=== PATIENT | female | born 1965 | race Caucasian/White ===

== ENCOUNTER 2018-05-04 15:15 | Inpatient (IN) ==
[2018-05-04] MEDS ORDERED: MoRPHine SULFATE 10 MG/ML CARP/VIAL IV STA (15:51)
[2018-05-04] MEDS ORDERED: ONDANSETRON INJ 2 MG/ML 2 ML VIAL IV STA (15:51)
[2018-05-04] MEDS ORDERED: SODIUM CHLORIDE 0.9% 1000ML 1,000 ML IV SCH (16:00)
[2018-05-04 16:09] LABS: Basophils # (auto) 0.03 K/uL (0-0.2); Basophils % (auto) 0.2 %; Eosinophils # (auto) 0.13 K/uL (0-0.5); Eosinophils % (auto) 0.9 %; Hematocrit (blood only) 39.2 % (37-47); Hemoglobin 13.9 g/dL (12.0-16.0); Immature Granulocytes # (auto) 0.03 K/uL (0.00-0.02); Immature Granulocytes % (auto) 0.2 %; Lymphocytes # (auto) 2.58 K/uL (1.2-3.4); Lymphocytes % (auto) 18.8 %; Mean Corpuscular Hgb Conc 35.5 g/dL (32-36); Mean Corpuscular Volume 89.5 fL (80-100); Mean Platelet Volume 9.6 fL (7.4-10.4); Monocytes # (auto) 0.81 K/uL (0.11-0.59); Monocytes % (auto) 5.9 %; Neutrophils # (auto) 10.12 K/uL (1.4-6.5); Platelet Count 173 K/uL (130-400); RDW Coefficient of Variation 12.7 % (11.5-14.5); RDW Standard Deviation 41.1 fL (36.4-46.3); Red Blood Count 4.38 M/uL (4.2-5.4)
[2018-05-04 16:32] LABS: Blood Urea Nitrogen 13 mg/dl (7-18); Carbon Dioxide 30 mmol/L (21-32); Chloride 106 mmol/L (98-107); Est GFR (African American) 70.5; Potassium 3.4 mmol/L (3.5-5.1); Sodium 139 mmol/L (136-145)
[2018-05-04 16:33] LABS: Alanine Aminotransferase 26 U/L (12-78); Albumin Level 3.4 gm/dl (3.4-5.0); Aspartate Aminotransferase 17 U/L (15-37); BUN Creatinine Ratio 12.3 (10-20); Est GFR (Non-African American) 60.9; Glucose 103 mg/dl (70-99)
[2018-05-04 16:35] LABS: Albumin Globulin Ratio 0.8 (0.9-2); Alkaline Phosphatase 82 U/L (45-117); Bilirubin,Total 0.3 mg/dl (0.2-1); Globulin 4.1 gm/dl (2.5-4.0); Total Protein 7.5 gm/dl (6.4-8.2)
[2018-05-04] MEDS ORDERED: IOVERSOL 100ml IV PRN (16:57)
--- NOTE | 2018-05-04 17:17 | CT Scan Report ---
CT abd pelvis IV con only CLINICAL HISTORY: Right lower quadrant pain COMPARISON STUDY: None. TECHNIQUE: The patient was scanned in a dynamic helical fashion during intravenous administration of 90 cc of Optiray 320. A dose lowering technique was utilized adhering to the principles of ALARA. CT DOSE: 1212.75 mGy.cm FINDINGS: Lower chest: There are by basilar dependent atelectatic changes. Liver: There is a to small to characterize 8 mm hypodensity within the right hepatic lobe. The portal veins and hepatic veins appear patent. Gallbladder: Surgically absent Spleen: Top limits of normal in size. Pancreas: Unremarkable. Adrenal glands: Unremarkable. Kidneys: There is a 35mm left renal hypodense lesion which exceeds water attenuation with a Hounsfiel d measurement of 24. A dedicated renal CT scan or MRI is recommended to differentiate a hyperdense cy st from solid renal mass. There is an additional 9 mm left renal hypodense lesion. Bowel: There are no transition zones indicate bowel obstruction. There is a dilated thick-walled appe ndix with periappendiceal stranding. The findings are indicative of acute appendicitis. There are sca ttered colonic diverticula. There is no evidence of acute diverticulitis. Peritoneum: There is no intraperitoneal free air or abdominal ascites. Vasculature: The abdominal aorta is normal in course and caliber. Adenopathy: Prominent right ileocolic lymph nodes, are likely reactive Pelvic viscera: The uterus appears surgically absent Skeletal structures: No destructive osseous lesions are seen. IMPRESSION: 1. Dilated thick-walled appendix with periappendiceal stranding. The findings are indicative of acute appendicitis 2. Indeterminate 35mm left renal hypodensity. A dedicated renal CT scan or MRI is recommended to diff erentiate a hyperdense cyst from a solid renal neoplasm Electronically signed by: Apollo Winchester M.D. 05/04/2018 5:16 PM
[2018-05-04] MEDS ORDERED: MoRPHine SULFATE 4 MG/ML 1 ML CARP\\VIAL IV STA (17:28)
[2018-05-04] MEDS ORDERED: cefOXitin 2,000 MG/60 ML BAG IV STA (17:28)
--- NOTE | 2018-05-04 17:51 | History & Physical Report ---
Date of Service May 04, 2018 Assessment & Plan (1) Acute appendicitis: Patient with acute appendicitis. I have discussed with her and her laparoscopic appendectomy with possible open appendectomy. They do understand potential complications of bleeding infection bowel and bladder i njury and do wish to proceed. I will asked the [facility] hospitalist to help with her medical management. History of Present Illness Chief Complaint: abdominal pain Primary Care Provider: Kg Martines Allergies Allergy/AdvReac Type Severity Reaction Status Date / Time amoxicillin AdvReac Intermediate nausea Verified 05/04/18 16:36 Home Medications Home Medications Medication Instructions Recorded Confirmed Type clarithromycin 500 mg PO BID 05/04/18 05/04/18 History cyanocobalamin (vitamin B-12) 1,000 mcg PO DAILY 05/04/18 05/04/18 History [Vitamin B-12] duloxetine [Cymbalta] 60 mg PO DAILY 05/04/18 05/04/18 History furosemide [Lasix] 40 mg PO DAILY 05/04/18 05/04/18 History ibuprofen [Advil] 200 - 600 mg PO DIRECTED PRN 05/04/18 05/04/18 History levocetirizine 5 mg PO DAILY 05/04/18 05/04/18 History levothyroxine 100 mcg PO DAILYBB 05/04/18 05/04/18 History omega 7-ovd-lsz-fish oil [Fish Oil] 1 cap PO DAILY 05/04/18 05/04/18 History omeprazole 40 mg PO DAILY 05/04/18 05/04/18 History potassium chloride 20 meq PO DAILY 05/04/18 05/04/18 History prednisone 0 mg PO DAILY 05/04/18 05/04/18 History vitamin E 400 unit PO DAILY 05/04/18 05/04/18 History Past Med/Surg History Social History Feels Safe at Home: Yes Smoking Status: Current every day smoker Immunizations: Patient is a 52-year-old female with acute abdominal pain mostly in the right lower quadrant presented to the emergency room with findings on CAT scan of acute appendicitis there does not appear to be any significant abscess. Review of Systems All systems reviewed & are unremarkable except as noted in HPI & below Physical Exam Vital Signs (Past 24 Hours): Last Vital Signs Temp 36.8 C 05/04/18 15:19 Pulse 91 H 05/04/18 16:47 Resp 17 05/04/18 16:47 BP 126/75 05/04/18 16:47 Pulse Ox 97 05/04/18 16:47 Patient is in her ER bed she is in mild distress from abdominal pain. She is responsive her vital signs are stable her HEENT exam shows atraumatic findings neck is supple she is in no respiratory distress heart shows regular rate and rhythm abdomen is soft but does have severe tenderness in the right lower quadrant. Her extremities are warm and well perfused Results & Data Medications Administered Ioversol (Optiray 320 100ml) 90 ml IV ONCE PRN PRN Reason: Interaction Checking Stop: 05/08/18 16:56 Last Admin: 05/04/18 16:59 Dose: 90 ml Documented by: [id number]
--- NOTE | 2018-05-04 18:44 | Emergency Department Note ---
History of Present Illness General Chief complaint: Rib Injury/Pain Stated complaint: NAUESEA & PAIN IN RIGHT SIDE Source: patient Mode of arrival: ambulatory Limitations: no limitations History of Present Illness Maximum Pain Intensity: 8 This patient is a 52-year-old female who presents to the emergency department complaining of nausea and pain in her right side. She reports that her symptoms started approximately 5 hours ago while she was at work. She reports that the pain is worse when standing or moving. She rates the discomfort an 8/10. She reports she recently finished a course of clarithromycin due to an upper respiratory infection. She has had some mild diarrhea. She reports a history of fibromyalgia, hysterectomy and cholecystectomy. She still has her appendix. She has not vomited. She denies urinary symptoms or fevers. Home Medications Home Medications Medication Instructions Recorded Confirmed Type clarithromycin 500 mg PO BID 05/04/18 05/04/18 History cyanocobalamin (vitamin B-12) 1,000 mcg PO DAILY 05/04/18 05/04/18 History [Vitamin B-12] duloxetine [Cymbalta] 60 mg PO DAILY 05/04/18 05/04/18 History furosemide [Lasix] 40 mg PO DAILY 05/04/18 05/04/18 History ibuprofen [Advil] 200 - 600 mg PO DIRECTED PRN 05/04/18 05/04/18 History levocetirizine 5 mg PO HS 05/04/18 05/04/18 History levothyroxine 100 mcg PO DAILYBB 05/04/18 05/04/18 History montelukast 10 mg PO PM 05/04/18 05/04/18 History omega 2-tpf-fmp-fish oil [Fish Oil] 1 cap PO DAILY 05/04/18 05/04/18 History omeprazole 40 mg PO DAILY 05/04/18 05/04/18 History potassium chloride 20 meq PO DAILY 05/04/18 05/04/18 History prednisone 0 mg PO DAILY 05/04/18 05/04/18 History vitamin E 400 unit PO DAILY 05/04/18 05/04/18 History Allergies Allergy/AdvReac Type Severity Reaction Status Date / Time amoxicillin AdvReac Intermediate nausea Verified 05/04/18 16:36 Past Med/Surg History Medical History Tobacco use (Chronic) History of hysterectomy (Chronic) Fibromyalgia (Chronic) Anxiety (Chronic) Hypothyroidism (Chronic) GERD (gastroesophageal reflux disease) (Chronic) Leg edema (Chronic) Surgical History History of cholecystectomy (Chronic) Hx of tonsillectomy (Chronic) Family History Other Cancer Coronary heart disease Social History Feels Safe at Home: Yes Smoking Status: Current every day smoker (1ppd x25 years) Hx Alcohol Use: Yes Hx Substance Use: No Review of Systems A total of 10 systems reviewed and were otherwise negative Physical Exam Vital Signs Vital Signs - 24 hr 05/04/18 15:19 05/04/18 16:47 05/04/18 18:38 Temperature 36.8 C Temperature Source Oral Sepsis Recent Fever Within 48 Hours No Sepsis Action Taken by Nursing No Action Required Pulse Rate 116 H Pulse Rate [Right Finger] 91 H 95 H Pulse Rhythm Regular Pulse Strength Normal Respiratory Rate 23 17 18 Respiratory Effort / Characteristics Non-Labored Respiratory Depth Normal Blood Pressure 144/89 H Blood Pressure [Right Arm] 126/75 122/84 Blood Pressure Mean 107 Blood Pressure Mean [Right Arm] 92 96 Pulse Oximetry 97 97 95 Oxygen Delivery Method Room Air Room Air Room Air VITALS: Vitals are noted on the nurse's note and reviewed by myself. Vital signs stable. GENERAL: This is a 52-year-old female, in no acute distress, nondiaphoretic, well-developed well-nourished. SKIN: The skin was without rashes. EARS: External auditory canals clear, tympanic membranes pearly christie without erythema or effusion bilaterally. EYES: Pupils equal round and reactive to light and accommodation. MOUTH: Mucous membranes moist. Tonsils are not enlarged. Pharynx without erythema or exudate. NECK: Supple without nuchal rigidity. No lymphadenopathy. HEART: Regular rate and rhythm without murmurs gallops or rubs. LUNGS: Clear to auscultation bilaterally without wheezes, rales or rhonchi. No retractions or accessory muscle use. ABDOMEN: Positive bowel sounds x 4. Soft, moderate tenderness to palpation in the right lower quadrant. No guarding or rebound tenderness. EXTREMITIES: No pitting edema of the lower extremities. NEURO: Patient was alert and oriented to person place and time. Course Consultations Consultation #1: Dr. Logan - general surgery Administered Medications Ioversol (Optiray 320 100ml) 90 ml IV ONCE PRN PRN Reason: Interaction Checking Stop: 05/08/18 16:56 Last Admin: 05/04/18 16:59 Dose: 90 ml Documented by: [id number] Discontinued Medications Sodium Chloride (Nss 1000ml) 1,000 mls @ 999 mls/hr IV .Q1H1M BARBI Stop: 05/04/18 17:00 Last Infusion: 05/04/18 17:10 Dose: 0 mls/hr Documented by: [id number] Admin: 05/04/18 16:05 Dose: 999 mls/hr Documented by: [id number] Cefoxitin Sodium (Mefoxin) 2,000 mg in 60 mls @ 100 mls/hr IV NOW STA Stop: 05/04/18 18:03 Last Infusion: 05/04/18 18:46 Dose: 0 mls/hr Documented by: [id number] Admin: 05/04/18 18:09 Dose: 100 mls/hr Documented by: [id number] Morphine Sulfate (Morphine Sulfate) 6 mg IV NOW STA Stop: 05/04/18 15:52 Last Admin: 05/04/18 16:05 Dose: 6 mg Documented by: [id number] Morphine Sulfate (Morphine Sulfate) 4 mg IV NOW STA Stop: 05/04/18 17:29 Last Admin: 05/04/18 17:37 Dose: 4 mg Documented by: [id number] Ondansetron HCl (Zofran) 4 mg IV NOW STA Stop: 05/04/18 15:52 Last Admin: 05/04/18 16:05 Dose: 4 mg Documented by: [id number] Medical Decision Making Differential Diagnosis Differential diagnosis includes acute appendicitis, kidney stone, inguinal hernia, bowel obstruction, gastroenteritis, among others. Medical Records Attestation: I reviewed the patient's medical records. Home Medications Current Medication List: was personally reviewed by me Laboratory Data Attestation: I reviewed the patient's lab results. Result diagrams: 05/04/18 16:00 05/04/18 16:00 Lab Results 05/04/18 05/04/18 Range/Units 16:00 16:00 WBC 13.70 H (4.8-10.8) K/uL RBC 4.38 (4.2-5.4) M/uL Hgb 13.9 (12.0-16.0) g/dL Hct 39.2 (37-47) % MCV 89.5 (80-100) fL MCH 31.7 (25-34) pg MCHC 35.5 (32-36) g/dL RDW Std Deviation 41.1 (36.4-46.3) fL RDW Coeff of Kiki 12.7 (11.5-14.5) % Plt Count 173 (130-400) K/uL MPV 9.6 (7.4-10.4) fL Immature Gran % (Auto) 0.2 % Neut % (Auto) 74.0 % Lymph % (Auto) 18.8 % Ceiba % (Auto) 5.9 % Eos % (Auto) 0.9 % Baso % (Auto) 0.2 % Immature Gran # (Auto) 0.03 H (0.00-0.02) K/uL Neut # (Auto) 10.12 H (1.4-6.5) K/uL Lymph # (Auto) 2.58 (1.2-3.4) K/uL Ceiba # (Auto) 0.81 H (0.11-0.59) K/uL Eos # (Auto) 0.13 (0-0.5) K/uL Baso # (Auto) 0.03 (0-0.2) K/uL Sodium 139 (136-145) mmol/L Potassium 3.4 L (3.5-5.1) mmol/L Chloride 106 (98-107) mmol/L Carbon Dioxide 30 (21-32) mmol/L Anion Gap 3.0 (3-11) BUN 13 (7-18) mg/dl Creatinine 1.04 (0.6-1.2) mg/dl Est Cr Clr Drug Dosing Not Reportable Est GFR ( Amer) 70.5 Est GFR (Non-Af Amer) 60.9 BUN/Creatinine Ratio 12.3 (10-20) Glucose 103 H (70-99) mg/dl Calcium 9.0 (8.5-10.1) mg/dl Total Bilirubin 0.3 (0.2-1) mg/dl AST 17 (15-37) U/L ALT 26 (12-78) U/L Alkaline Phosphatase 82 (45-117) U/L Total Protein 7.5 (6.4-8.2) gm/dl Albumin 3.4 (3.4-5.0) gm/dl Globulin 4.1 H (2.5-4.0) gm/dl Albumin/Globulin Ratio 0.8 L (0.9-2) Imaging Data Attestation: I personally reviewed and interpreted this imaging study as follows: Radiologist's Impression: CT abd pelvis IV con only FINDINGS: Lower chest: There are by basilar dependent atelectatic changes. Liver: There is a to small to characterize 8 mm hypodensity within the right hepatic lobe. The portal veins and hepatic veins appear patent. Gallbladder: Surgically absent Spleen: Top limits of normal in size. Pancreas: Unremarkable. Adrenal glands: Unremarkable. Kidneys: There is a 35mm left renal hypodense lesion which exceeds water attenuation with a Hounsfield measurement of 24. A dedicated renal CT scan or MRI is recommended to differentiate a hyperdense cyst from solid renal mass. There is an additional 9 mm left renal hypodense lesion. Bowel: There are no transition zones indicate bowel obstruction. There is a dilated thick-walled appendix with periappendiceal stranding. The findings are indicative of acute appendicitis. There are scattered colonic diverticula. There is no evidence of acute diverticulitis. Peritoneum: There is no intraperitoneal free air or abdominal ascites. Vasculature: The abdominal aorta is normal in course and caliber. Adenopathy: Prominent right ileocolic lymph nodes, are likely reactive Pelvic viscera: The uterus appears surgically absent Skeletal structures: No destructive osseous lesions are seen. IMPRESSION: 1. Dilated thick-walled appendix with periappendiceal stranding. The findings are indicative of acute appendicitis 2. Indeterminate 35mm left renal hypodensity. A dedicated renal CT scan or MRI is recommended to differentiate a hyperdense cyst from a solid renal neoplasm Blood Pressure Blood Pressure Findings: Normal blood pressure Blood Pressure Disposition: did not require urgent referral MDM Narrative The patient is a 52-year-old female who presents today complaining of right lower quadrant abdominal pain. Labs revealed a leukocytosis of 13.7. Labs were otherwise unremarkable. CT showed evidence of acute appendicitis. General surgery was consulted and will evaluate the patient for surgical intervention. There was an incidental finding of left renal lesion and the patient was informed of this. She was advised to follow-up with her PCP upon discharge for further evaluation of this. Impression & Plan Acute appendicitis Discharge Plan Visit Data Chief Complaint: Rib Injury/Pain Stated Complaint: NAUESEA & PAIN IN RIGHT SIDE ED Provider: Valentino Rendon ED Midlevel Provider: Stephanie Grewal Discharge Problem: Acute appendicitis Discharge Instructions Interventions: ED Discharge Assessment Last Done: 05/04/18 18:45 Forms Stand Alone Forms: [facility] Prescriptions Prescriptions: No Action furosemide [Lasix] 40 mg Tablet 40 mg PO DAILY RF: 0 prednisone 10 mg Tablet PO DAILY RF: 0 clarithromycin 500 mg Tablet 500 mg PO BID RF: 0 cyanocobalamin (vitamin B-12) [Vitamin B-12] 1,000 mcg Tablet 1,000 mcg PO DAILY RF: 0 omeprazole 40 mg Capsule,Delayed Release(Dr/Ec) 40 mg PO DAILY RF: 0 levothyroxine 100 mcg Tablet 100 mcg PO DAILYBB RF: 0 ibuprofen [Advil] 200 mg Tablet 200 - 600 mg PO DIRECTED PRN (Reason: Pain) RF: 0 vitamin E 400 unit Capsule 400 unit PO DAILY RF: 0 duloxetine [Cymbalta] 60 mg Capsule,Delayed Release(Dr/Ec) 60 mg PO DAILY RF: 0 levocetirizine 5 mg Tablet 5 mg PO HS RF: 0 omega 2-zij-ikm-fish oil [Fish Oil] 1,000 mg (120 mg-180 mg) Capsule 1 cap PO DAILY RF: 0 potassium chloride 20 mEq Tablet Extended Release 20 meq PO DAILY RF: 0 montelukast 10 mg Tablet 10 mg PO PM RF: 0 Referrals Referrals: Kg Martines [Primary Care Provider] - Discharge Problem: Acute appendicitis Qualifiers: Acute appendicitis type: unspecified acute appendicitis type Qualified Code(s): K35.80 - Unspecified acute appendicitis
--- NOTE | 2018-05-04 18:44 | Consultation ---
Date of Consultation May 04, 2018 Assessment & Plan (1) Acute appendicitis: Pt presented to ER with RLQ pain and found to have acute appendicitis on CT ABD/PELVIS Dr Logan - general surgery to take pt to OR tonight -pain management per surgery -wound management per surgery -incentive spirometry -monitor H&H for acute blood loss anemia (2) GERD (gastroesophageal reflux disease): -will hold oral PPI at this time (3) Hypothyroidism: -will order for IV levothryoxine for tomorrow am and reassess pt's NPO/diet status (4) Anxiety: -holding home medications for now and reassess NPO/diet status tomorrow morning (5) Renal cyst: CT ABD/PELVIS with incidental finding of Indeterminate 35mm left renal hypodensity. A dedicated renal CT scan or MRI is recommended to differentiate a hyperdense cyst from a solid renal neoplasm -Pt to OR urgently for appendicitis -Tomorrow can consider further imaging to further clarify (6) Leg edema: On lasix for LE edema -hold lasix at this time Follows with Dr Martines for routine care Pt will be followed tomorrow by Dr Rider Supervising Physician Co-Signing Physician Notes Attending addendum The patient was seen and examined in the medical floor Pt presented to ER with RLQ pain and found to have acute appendicitis on CT ABD/PELVIS She was seen by Dr. bar for last night following surgery This morning she does have some abdominal pain but denies any other symptoms On examination No apparent distress at rest Having a usual breakfast Hemodynamically stable Chest-clear to auscultate bilaterally Heart-S1S2 no murmur appreciated, Abdomen-soft,tender , bowel sounds present Extremities-negative for any edema Admission labs and imaging studies reviewed Acute appendicitis status post laparoscopic appendectomy on 05/04 Agree with assessment and plan as outlined above by Lacy Palma History of Present Illness Reason for Consultation: Medical management History of Present Illness Pt is 52 y/o F with PMH anxiety, fibromyalgia, GERD, LE edema, tobacco use, hypothryoidism presented to ER with c/o RLQ abdominal pain, nausea, dry heaves that started today and pt was found to have acute appendicitis on CT abd/pelvis. Seen for medical consultation at request of Dr Logan who is taking her to OR this evening. Pt states recent URI symptoms and tomorrow is last day of clarithromycin and prednisone. Denies known fever, diaphoresis, diarrhea, ANNE, dizziness, syncope, vision changes, neck pain, CP, SOB, orthopnea, palpitations, cough, sore throat, choking, otalgia, rhinorrhea, abdominal pain, paresthesias, increased extremity edema, rashes, urinary symptoms. Allergies Allergy/AdvReac Type Severity Reaction Status Date / Time amoxicillin AdvReac Intermediate nausea Verified 05/04/18 16:36 Home Medications Home Medications Medication Instructions Recorded Confirmed Type clarithromycin 500 mg PO BID 05/04/18 05/04/18 History cyanocobalamin (vitamin B-12) 1,000 mcg PO DAILY 05/04/18 05/04/18 History [Vitamin B-12] duloxetine [Cymbalta] 60 mg PO DAILY 05/04/18 05/04/18 History furosemide [Lasix] 40 mg PO DAILY 05/04/18 05/04/18 History ibuprofen [Advil] 200 - 600 mg PO DIRECTED PRN 05/04/18 05/04/18 History levocetirizine 5 mg PO HS 05/04/18 05/04/18 History levothyroxine 100 mcg PO DAILYBB 05/04/18 05/04/18 History montelukast 10 mg PO PM 05/04/18 05/04/18 History omega 7-qrv-pmp-fish oil [Fish Oil] 1 cap PO DAILY 05/04/18 05/04/18 History omeprazole 40 mg PO DAILY 05/04/18 05/04/18 History potassium chloride 20 meq PO DAILY 05/04/18 05/04/18 History prednisone 0 mg PO DAILY 05/04/18 05/04/18 History vitamin E 400 unit PO DAILY 05/04/18 05/04/18 History ciprofloxacin HCl [Cipro] 500 mg PO BID #10 tab 05/05/18 Rx hydrocodone-acetaminophen [Filer] 1 - 2 tab PO Q6H #30 tab 05/05/18 Rx hydrocodone-acetaminophen [Filer] 1 - 2 tab PO Q6H #30 tab 05/05/18 Rx hydrocodone-acetaminophen [Filer] 1 - 2 tab PO Q6H #30 tab 05/05/18 Rx Patient History Medical History Tobacco use (Chronic) History of hysterectomy (Chronic) Fibromyalgia (Chronic) Anxiety (Chronic) Hypothyroidism (Chronic) GERD (gastroesophageal reflux disease) (Chronic) Leg edema (Chronic) Surgical History History of cholecystectomy (Chronic) Hx of tonsillectomy (Chronic) Family History Other Cancer Coronary heart disease Social History Preferred Language: Amharic Communication Ability: Effective Records Management Engineer Required: No Beliefs That Will Affect Care: None Current Living Situation: Significant Other Other Information That Helps Us Care for You: No Feels Safe at Home: Yes Safety Concerns: Feels Safe At This Time Smoking Status: Current every day smoker Hx Alcohol Use: Yes Hx Substance Use: No Review of Systems As per HPI other systems reviewed and negative Physical Exam Vital Signs (Past 24 Hours): Last Vital Signs Temp 36.8 C 05/04/18 15:19 Pulse 95 H 05/04/18 18:38 Resp 18 05/04/18 18:38 BP 122/84 05/04/18 18:38 Pulse Ox 95 05/04/18 18:38 Physical Exam: General: mild distress secondary to abdominal pain, obese Head: normocephalic, atraumatic Eyes: PERRL, EOM's intact, conjunctiva non-injected, anicteric ENT: normal inspection external ears, nose, mucous membranes dry Neck: supple, trachea midline Lungs: clear, no respiratory distress, no wheezing/rhonchi/rales CV: RRR, no murmur, no significant pretibial edema Abd: normal BS, soft, +tenderness to palpation RLQ Ext: no cyanosis, no calf tenderness Neuro: A&O x 3, no focal deficits noted, normal affect Skin: warm, dry Results & Data Laboratory Results Short CBC 05/04/18 Range/Units 16:00 WBC 13.70 H (4.8-10.8) K/uL Hgb 13.9 (12.0-16.0) g/dL Hct 39.2 (37-47) % Plt Count 173 (130-400) K/uL BMP 05/04/18 16:00 Sodium 139 Potassium 3.4 L Chloride 106 Carbon Dioxide 30 BUN 13 Creatinine 1.04 Glucose 103 H Calcium 9.0 Liver Function 05/04/18 Range/Units 16:00 Total Bilirubin 0.3 (0.2-1) mg/dl AST 17 (15-37) U/L ALT 26 (12-78) U/L Alkaline Phosphatase 82 (45-117) U/L Albumin 3.4 (3.4-5.0) gm/dl Diagnostic Findings CT ABD/PELVIS: IMPRESSION: 1. Dilated thick-walled appendix with periappendiceal stranding. The findings are indicative of acute appendicitis 2. Indeterminate 35mm left renal hypodensity. A dedicated renal CT scan or MRI is recommended to differentiate a hyperdense cyst from a solid renal neoplasm
[2018-05-04] MEDS ORDERED: fentaNYL citrate 100 MCG/2 ML VIAL ONE (18:52)
[2018-05-04] MEDS ORDERED: MIDAZOLAM HCL 1 MG/ML 2ML VIAL ONE (18:52)
[2018-05-04] MEDS ORDERED: ROCURONIUM BROMIDE 10 MG/ML 5 ML VIAL ONE (18:53)
[2018-05-04] MEDS ORDERED: PROPOFOL IV EMULSION 10 MG/ML 20 ML VIAL IV ONE (18:53)
[2018-05-04] MEDS ORDERED: SUCCINYLCHOLINE CHLORIDE 20 MG/ML 10 ML VIAL ONE (18:53)
[2018-05-04] MEDS ORDERED: DEXAMETHASONE SOD INJ 4 MG/ML VIAL ONE (18:53)
[2018-05-04] MEDS ORDERED: ONDANSETRON INJ 2 MG/ML 2 ML VIAL ONE (18:53)
[2018-05-04] MEDS ORDERED: ONDANSETRON INJ 2 MG/ML 2 ML VIAL IV PRN (19:00)
[2018-05-04] MEDS ORDERED: ePHEDrine sulfate 50 MG/ML AMP IV PRN (19:00)
[2018-05-04] MEDS ORDERED: ATROPINE SULFATE 0.1 MG/ML 10ML SYR IV PRN (19:00)
[2018-05-04] MEDS ORDERED: fentaNYL citrate 100 MCG/2 ML VIAL IV PRN (19:00)
[2018-05-04] MEDS ORDERED: HYDROmorphone INJ 1 MG/ML SYRINGE IV PRN ×2 (19:00→21:50)
--- NOTE | 2018-05-04 19:16 | Anesthesiology Consultation ---
Date of Service May 04, 2018 Assessment & Plan (1) Encounter for pre-operative examination: Chart Review Chart Review: Acceptable Risk for Surgery and Patient NOT seen in Pre Admission Testing Consults Requested none NPO Date Last Intake of Fluids: 05/04/18 Time Last Intake of Fluids: 15:00 Date Last Intake of Solids: 05/04/18 Time Last Intake of Solids: 11:00 History Surgery Operation Date: 05/04/18 18:00 Proposed Procedures p Laparoscopic Appendectomy - Elvin Logan MD, FACS Height/Weight Height: 5 ft 5 in Weight: 123.876 kg Allergies Allergy/AdvReac Type Severity Reaction Status Date / Time amoxicillin AdvReac Intermediate nausea Verified 05/04/18 16:36 Medications Home Medications Medication Instructions Recorded Confirmed Last Taken clarithromycin 500 mg PO BID 05/04/18 05/04/18 05/04/18 cyanocobalamin (vitamin B-12) 1,000 mcg PO DAILY 05/04/18 05/04/18 05/04/18 [Vitamin B-12] duloxetine [Cymbalta] 60 mg PO DAILY 05/04/18 05/04/18 05/04/18 furosemide [Lasix] 40 mg PO DAILY 05/04/18 05/04/18 05/04/18 ibuprofen [Advil] 200 - 600 mg PO DIRECTED PRN 05/04/18 05/04/18 Unknown levocetirizine 5 mg PO HS 05/04/18 05/04/18 05/04/18 levothyroxine 100 mcg PO DAILYBB 05/04/18 05/04/18 05/04/18 montelukast 10 mg PO PM 05/04/18 05/04/18 Unknown omega 7-xzf-[id number]-fish oil [Fish Oil] 1 cap PO DAILY 05/04/18 05/04/18 05/04/18 omeprazole 40 mg PO DAILY 05/04/18 05/04/18 05/04/18 potassium chloride 20 meq PO DAILY 05/04/18 05/04/18 05/04/18 prednisone 0 mg PO DAILY 05/04/18 05/04/18 Unknown vitamin E 400 unit PO DAILY 05/04/18 05/04/18 05/04/18 Active Medications Generic Name Dose Route Start Last Admin Trade Name Freq PRN Reason Stop Dose Admin Ioversol 90 ml 05/04/18 16:57 05/04/18 16:59 Optiray 320 100ml IV 05/08/18 16:56 90 ml ONCE PRN Administration Interaction Checking Past Medical History Medical History Tobacco use (Chronic) History of hysterectomy (Chronic) Fibromyalgia (Chronic) Anxiety (Chronic) Hypothyroidism (Chronic) GERD (gastroesophageal reflux disease) (Chronic) Leg edema (Chronic) Past Family History Family History Other Cancer Coronary heart disease Past Surgical History Surgical History History of cholecystectomy (Chronic) Hx of tonsillectomy (Chronic) Past Anesthesia History No Hx of Anesthesia Complications and No Family Hx of Anesthesia Complications History of PONV No Motion Sickness Screening History of Motion Sickness: No Social History Smoking Status: Current every day smoker (1ppd x25 years) Smoking cigarettes per day: 1ppd x 25 years Hx Alcohol Use: Yes Hx Substance Use: No Exercise / Class Metabolic Activity II 4-5 Yardwork/Stairs/Walk up hill Physical Exam Vital Signs Last Vital Signs Temp 36.8 C 05/04/18 15:19 Pulse 95 H 05/04/18 18:38 Resp 18 05/04/18 18:38 BP 122/84 05/04/18 18:38 Pulse Ox 95 05/04/18 18:38 Testing Laboratory Results 05/04/18 16:00 05/04/18 16:00
[2018-05-04] MEDS ORDERED: BUPIVACAINE 0.5 % 5 MG/1 ML MPF 30ML VIAL ONE (19:30)
[2018-05-04] MEDS ORDERED: ALBUTEROL HFA INHALER 8.5 GM ONE (20:00)
--- NOTE | 2018-05-04 20:35 | Operative Report ---
Post Operative Report Pre & Post Diagnosis Operation Date: 05/04/18 18:00 Pre-Op Diagnosis: Acute appendicitis Post-Op Diagnosis: Acute appendicitis Procedure Operation Date: 05/04/18 18:00 Actual Procedures p Laparoscopic Appendectomy(Not Applicable) - Elvin Logan MD, FACS Surgeon Elvin Logan MD, FACS Heating And Ventilating Tender nurses Estimated Blood Loss 10 Findings Consistent with Post-Op Diagnosis Specimens appendix Description of Procedure see dictation I attest to the content of the Intraoperative Record and any orders documented therein. Any exceptions are noted below.
[2018-05-04] MEDS ORDERED: ACETAMINOPHEN 1,000 MG/100 ML VIAL IV ONE (20:40)
[2018-05-04] MEDS ORDERED: KETOROLAC 30 MG/ML VIAL ONE (20:59)
[2018-05-04] MEDS ORDERED: KETOROLAC 30 MG/ML VIAL IV ONE (21:00)
[2018-05-04] MEDS ORDERED: ACETAMINOPHEN 1000 MG/100 ML IV IV ONE (21:02)
--- NOTE | 2018-05-04 21:04 | Anesthesiology Progress Note ---
Date of Service May 04, 2018 Anesthesia Post Procedure Vital Signs Vital Signs: Temp Pulse Pulse Resp BP BP Pulse Ox 05/04/18 18:38 95 H 18 122/84 95 05/04/18 16:47 91 H 17 126/75 97 05/04/18 15:19 36.8 C 116 H 23 144/89 H 97 Pain Intensity Right Abdomen: Pain Intensity: 5 Notes Mental Status: alert / awake / arousable and participated in evaluation Patient Amnestic to Procedure: Yes Nausea / Vomiting: adequately controlled Pain: adequately controlled Airway Patency, RR, SpO2: stable & adequate BP & HR: stable & adequate Hydration State: stable & adequate Anesthetic Complications: no major complications apparent and Pt Satisfied with anesthetic care
[2018-05-04] MEDS ORDERED: KETOROLAC 30 MG/ML VIAL IV STA (21:27)
[2018-05-04] MEDS ORDERED: PROMETHAZINE HCL 25 MG in SODIUM CHLORIDE 0.9% 50 ML IV PRN (21:50)
[2018-05-04] MEDS ORDERED: PROMETHAZINE HCL 12.5 MG in SODIUM CHLORIDE 0.9% 50 ML IV PRN (21:50)
[2018-05-04] MEDS ORDERED: HYDROmorphone INJ 0.5 MG/0.5 ML SYR IV PRN (21:50)
[2018-05-04 22:34] LABS: Prothrombin Time 9.8 Seconds (9.0-12.0)
[2018-05-04] MEDS: HYDROCODONE/ACETAMOPHEN 5/325MG TAB PO PRN (23:36)
[2018-05-04] MEDS: SODIUM CHLORIDE 0.9% 1000ML 1,000 ML IV SCH (23:36)
[2018-05-05] MEDS ORDERED: ALBUTEROL HFA 8 GM INHALER INH PRN (01:17)
[2018-05-05] MEDS: cefOXitin 2,000 MG in DEXTROSE 5% 50 ML IV SCH ×3 (01:43→17:25)
--- NOTE | 2018-05-05 02:01 | Operative Report ---
DATE OF OPERATION: 05/04/2018 NAME OF OPERATION: Laparoscopic appendectomy. PREOPERATIVE DIAGNOSIS: Acute appendicitis. POSTOPERATIVE DIAGNOSIS: Same. STAFF SURGEON: Elvin Logan MD ANESTHESIA: General. DESCRIPTION OF PROCEDURE: The patient was brought into the operating room and placed on the operating table in supine position. Her abdomen was prepped and draped in the usual fashion. The patient was morbidly obese. A Sullivan catheter was placed. An orogastric tube was placed. Using 0.5% plain Marcaine, all incisions were anesthetized. Incision was made above the umbilicus, carrying dissection down to the fascia, placing a Veress needle, producing pneumoperitoneum. A 5-mm port was placed at this level. Under visualization, a second 5-mm port was placed in the left lower quadrant and then higher in the left lower quadrant a 12-mm port placed. At this point, the appendix was reflected. The base of the appendix was dissected free. Using an Endo-DEMETRIUS, the base was transected. Then the mesoappendix was transected in 2 loads of the Endo-DEMETRIUS. Appendix was placed in an Endobag and then removed through the 12-mm site. After appropriate irrigation and hemostasis, all ports were removed. The fascia in the 12-mm site closed using interrupted 0 Vicryl suture and then the skin reapproximated using subcuticular 4-0 Monocryl, Steri-Strips in left lower quadrant superiorly and then inferiorly Dermabond as well as at the umbilicus. Dressing applied and patient transferred to recovery area in stable condition. I attest to the content of the Intraoperative Record and any orders documented therein. Any exception s are noted below.
[2018-05-05 02:10] LABS: Appearance Urine Clear (Clear); Bacteria Urine Automated Negative (Negative); Bilirubin Urine Negative (Negative); Blood Urine 2+ (Negative); Color Urine Yellow; Epithelial Cell Urine Auto 20-30 /lpf (0-5); Glucose Urine UA Negative (Negative); Ketones Urine Negative (Negative); Leukocyte Esterase Urine Trace (Negative); Nitrite Urine Negative (Negative); Protein Urine Negative (Negative); RBC Urine Automated >30 /hpf (0-4); Urobilinogen Urine Negative (Negative); pH Urine 5.5 (4.5-7.5)
--- NOTE | 2018-05-05 06:00 | Progress Note ---
Date of Service May 05, 2018 Assessment & Plan (1) Acute appendicitis: seems to be doing well will assess later today- possible d/c Acute appendicitis type: unspecified acute appendicitis type Qualified Code(s): K35.80 - Unspecified acute appendicitis Subjective stable overnight resting comfortably now Physical Exam Vital Signs (Past 24 Hours): Last Vital Signs Temp 36.6 C 05/05/18 03:31 Pulse 84 05/05/18 03:31 Resp 17 05/05/18 03:31 BP 113/76 05/05/18 03:31 Pulse Ox 95 05/05/18 03:31 no acute chgs
[2018-05-05] MEDS ORDERED: LEVOTHYROXINE SODIUM 100 MCG TABLET PO SCH (06:30)
[2018-05-05] MEDS: PANTOprazole 40 MG TAB PO SCH (08:34)
[2018-05-05] MEDS: BUDESONIDE/FORMOTEROL FUMARATE 160/4.5 60 PUFFS/INHALER INH SCH ×2 (08:35→21:00)
[2018-05-05] MEDS: HEPARIN SOD 5,000 UNIT/0.5 ML VIAL SQ SCH ×2 (08:39→21:03)
[2018-05-05] MEDS: HYDROCODONE/ACETAMOPHEN 5/325MG TAB PO PRN ×3 (08:44→21:08)
[2018-05-05] MEDS: SODIUM CHLORIDE 0.9% 1000ML 1,000 ML IV SCH (08:46)
[2018-05-05] MEDS ORDERED: FUROSEMIDE 40 MG TAB PO SCH (09:00)
[2018-05-05] MEDS ORDERED: LEVOTHYROXINE SODIUM 50 MCG in SYRINGE 0 ML IV SCH (09:00)
[2018-05-05 10:53] LABS: Hematocrit (blood only) 35.7 % (37-47); Hemoglobin 12.5 g/dL (12.0-16.0); Immature Granulocytes # (auto) 0.03 K/uL (0.00-0.02); Immature Granulocytes % (auto) 0.3 %; Lymphocytes # (auto) 1.11 K/uL (1.2-3.4); Lymphocytes % (auto) 10.8 %; Mean Corpuscular Volume 88.8 fL (80-100); Mean Platelet Volume 9.8 fL (7.4-10.4); Monocytes # (auto) 0.27 K/uL (0.11-0.59); Monocytes % (auto) 2.6 %; Neutrophils % (auto) 86.3 %; Platelet Count 162 K/uL (130-400); RDW Coefficient of Variation 12.5 % (11.5-14.5); RDW Standard Deviation 40.5 fL (36.4-46.3); Red Blood Count 4.02 M/uL (4.2-5.4); White Blood Count 10.31 K/uL (4.8-10.8)
[2018-05-05 11:17] LABS: BUN Creatinine Ratio 20.4 (10-20); Calcium 8.8 mg/dl (8.5-10.1); Creatinine Clr Calc Pharmacy 110.2 ml/min; Est GFR (African American) 103.1; Est GFR (Non-African American) 88.9; Potassium 3.9 mmol/L (3.5-5.1)
[2018-05-05] MEDS ORDERED: FAMOTIDINE 20MG/5ML IV PUSH IV PRN (18:00)
[2018-05-05] MEDS ORDERED: FAMOTIDINE 20 MG in SYRINGE 3 ML IV PRN (18:07)
--- NOTE | 2018-05-05 18:14 | Hospitalist Progress Note ---
Date of Service May 05, 2018 Assessment & Plan (1) Renal cyst: Indeterminate hypodensity requiring a dedicated renal CT or MRI recommend this be done prior to discharge to facilitate diagnosis and need for further treatment. She is a smoker and at risk for malignancy. (2) Acute appendicitis: Status post laparoscopic appendectomy, postop day 1. Postoperative wound care and pain management as well as DVT prophylaxis provided by Dr. Logan. Encouraged to ambulate. Encourage incentive spirometry. (3) GERD (gastroesophageal reflux disease): PPI and Pepcid PRN (4) Hypothyroidism: Synthroid 100mg PO per home regimen (5) Anxiety: Cymbalta (6) Leg edema: On lasix for LE edema, would cont to hold for now until she is feeling better. Also holding with recent contrast and possible future contrasted study in the next 1-2 days. No edema on exam. (7) Smoker: Strongly encouraged to quit (8) DVT prophylaxis: Heparin q12h Full Code Dispo-dc per Surgery. Recommend follow-up with PCP within one week of discharge. Esperanza Rider DO [facility] Hospitalist Subjective 52-year-old female status post appendectomy for acute appendicitis, postop day 1. She was doing well this morning but as the day went on began to feel more fatigued in general. She is not passing gas and has not had a bowel movement yet. Pain is somewhat controlled. She is tolerating p.o. She reported some heartburn which was controlled with additional Pepcid tonight. We discussed her renal cyst found on imaging, her smoking habit which she needs to quit, her fibromyalgia which is uncontrolled and questionably misdiagnosed. I discussed with her the importance of a rheumatology referral for appropriate diagnosis prior to long-term steroid use. We discussed long-term steroid side effects. She understands that she should have a 1 week follow-up with primary care when she leaves the hospital. Physical Exam Vital Signs (Past 24 Hours): Last Vital Signs Temp 37.1 C 05/05/18 15:42 Pulse 92 H 05/05/18 15:42 Resp 17 05/05/18 15:42 BP 103/68 05/05/18 15:42 Pulse Ox 95 05/05/18 15:42 CONSTITUTIONAL: obese, vitals as above, generally well-appearing EYES: normal conjuctivae, no scleral icterus ENT: MMM RESPIRATORY: clear to auscultation bilaterally, no crackles, rales or wheezes, normal respiratory effort CARDIOVASCULAR: regular rate and rhythm, S1 and 2 heard without murmurs, gallops or rubs, no JVD, no peripheral edema GASTROINTESTINAL: normal bowel sounds, soft, diffusely tender to palpation- expected post-op findings, incisions are closed and no surrounding erythema. MUSCULOSKELETAL: strength 5/5 throughout, head is normocephalic and atraumatic SKIN: warm and dry, abdominal surgical incisions as above. NEUROLOGIC: no gross focal deficits. PSYCHIATRIC: alert cooperative and oriented to person, place and time. Results & Data Laboratory Results Short CBC 05/05/18 Range/Units 10:27 WBC 10.31 (4.8-10.8) K/uL Hgb 12.5 (12.0-16.0) g/dL Hct 35.7 L (37-47) % Plt Count 162 (130-400) K/uL BMP 05/05/18 10:27 Sodium 140 Potassium 3.9 Chloride 109 H Carbon Dioxide 29 BUN 16 Creatinine 0.76 Glucose 136 H Calcium 8.8 Urine 05/05/18 Range/Units 01:59 Urine Color Yellow Urine Appearance Clear (Clear) Urine pH 5.5 (4.5-7.5) Ur Specific Orgas 1.030 (1.000-1.030) Urine Protein Negative (Negative) Urine Glucose (UA) Negative (Negative) Medications Administered Current Inpatient Medications Hydrocodone Bitart/Acetaminophen ([place] 5/325) 1 tab PO 3XDQ4 PRN PRN Reason: Moderate Pain Stop: 05/18/18 21:49 Last Admin: 05/05/18 15:47 Dose: 1 tab Documented by: Hydrocodone Bitart/Acetaminophen ([place] 5/325) 2 tab PO 3XDQ4 PRN PRN Reason: Severe Pain Stop: 05/18/18 21:49 Last Admin: 05/05/18 08:44 Dose: 2 tab Documented by: Albuterol (Ventolin Hfa) 2 puffs INH Q4H PRN PRN Reason: Shortness Of Breath Or Wheezing Stop: 06/04/18 01:16 Budesonide/Formoterol Fumarate (Symbicort 160mcg/4.5mcg) 2 puffs INH BID BARBI Stop: 06/04/18 08:59 Last Admin: 05/05/18 08:35 Dose: 2 puffs Documented by: Furosemide (Lasix) 40 mg PO DAILY BARBI Stop: 06/04/18 08:59 Last Admin: 05/05/18 08:34 Dose: 40 mg Documented by: Heparin Sodium (Porcine) (Heparin Sodium (Porcine)) 5,000 units SQ Q12 BARBI Stop: 06/04/18 08:59 Last Admin: 05/05/18 08:39 Dose: 5,000 units Documented by: Hydromorphone HCl (Dilaudid) 0.5 mg IV Q3HWA PRN PRN Reason: Moderate Pain Stop: 05/18/18 21:49 Hydromorphone HCl (Dilaudid) 1 mg IV Q3HWA PRN PRN Reason: Severe Pain Stop: 05/18/18 21:49 Cefoxitin Sodium 2,000 mg/ (Dextrose) 60 mls @ 100 mls/hr IV Q8H BARBI Stop: 05/15/18 01:59 Last Admin: 05/05/18 17:25 Dose: 100 mls/hr Documented by: Promethazine HCl 12.5 mg/ (Sodium Chloride) 50.5 mls @ 204 mls/hr IV Q6H PRN PRN Reason: Nausea And Vomiting Stop: 06/03/18 21:49 Promethazine HCl 25 mg/ Sodium (Chloride) 51 mls @ 204 mls/hr IV Q6H PRN PRN Reason: Nausea And Vomiting Stop: 06/03/18 21:49 Levothyroxine Sodium 50 mcg/ (Syringe) 2.5 mls @ 2 mls/min IV DAILY@0900 [facility] Stop: 06/04/18 08:59 Last Admin: 05/05/18 08:34 Dose: 2 mls/min Documented by: Famotidine 20 mg/ Syringe 5 mls @ 2.5 mls/min IV BID PRN PRN Reason: Heartburn Stop: 06/04/18 18:06 Ondansetron HCl (Zofran) 4 mg IV 4XDQ4H PRN PRN Reason: Nausea Stop: 06/03/18 21:49 Pantoprazole Sodium (Protonix) 40 mg PO DAILY [facility] Stop: 06/04/18 08:59 Last Admin: 05/05/18 08:34 Dose: 40 mg Documented by: (1) Acute appendicitis Acute appendicitis type: unspecified acute appendicitis type Qualified Code(s): K35.80 - Unspecified acute appendicitis
[2018-05-06] MEDS: cefOXitin 2,000 MG in DEXTROSE 5% 50 ML IV SCH ×3 (02:42→18:01)
--- NOTE | 2018-05-06 06:30 | Discharge Summary ---
PRINCIPAL DIAGNOSIS: Acute appendicitis. PROCEDURES: The patient underwent laparoscopic appendectomy. HOSPITAL COURSE: The patient was brought into the hospital on 05/04/2018 to the Emergency Room with acute abdominal pain, diagnosed with acute appendicitis after CAT scan. She was taken to the operating room and underwent laparoscopic appendectomy, which she tolerated very well. She has been on IV antibiotics and progressed well since that time and is felt stable for discharge home to be followed in the surgical clinic within 2-3 weeks.
[2018-05-06] MEDS: LEVOTHYROXINE SODIUM 100 MCG TABLET PO SCH (07:00)
[2018-05-06] MEDS ORDERED: COUGH DROP (SUGAR FREE) LOZ 24 LOZ/1 BOX BUCCAL ONE (07:02)
[2018-05-06] MEDS: HYDROCODONE/ACETAMOPHEN 5/325MG TAB PO PRN ×4 (07:37→23:25)
[2018-05-06] MEDS: PANTOprazole 40 MG TAB PO SCH (07:38)
[2018-05-06] MEDS: BUDESONIDE/FORMOTEROL FUMARATE 160/4.5 60 PUFFS/INHALER INH SCH ×2 (07:38→20:53)
[2018-05-06] MEDS: HEPARIN SOD 5,000 UNIT/0.5 ML VIAL SQ SCH ×2 (07:39→20:54)
--- NOTE | 2018-05-06 11:54 | Progress Note ---
Date of Service May 06, 2018 Physical Exam Vital Signs (Past 24 Hours): Last Vital Signs Temp 36.9 C 05/06/18 10:50 Pulse 98 H 05/06/18 10:50 Resp 18 05/06/18 10:50 BP 150/83 H 05/06/18 10:50 Pulse Ox 94 05/06/18 10:50
[2018-05-06] MEDS ORDERED: IOVERSOL 100ml IV PRN (12:17)
--- NOTE | 2018-05-06 12:41 | CT Scan Report ---
CT renal wo/w con HISTORY: Follow-up left renal lesion. TECHNIQUE: Multiaxial CT images of the abdomen were performed both before and after the intravenous a dministration of contrast to evaluate the kidneys. COMPARISON STUDY: Abdomen and pelvis CT 05/04/2018. FINDINGS: There is again noted a 3.5 cm hypodense left renal lesion. This does not demonstrate enhanc ement and demonstrates average Hounsfield units of approximately 21. Postcontrast images. Therefore, this is consistent with a slightly hyperdense cyst. There is also an 8 mm hypodense lesion within the lower pole the left kidney. This is technically too small to characterize but also favors a cyst. No definite solid enhancing renal masses. No hydronephrosis. No renal calculi. No hydronephrosis. Bibas ilar linear densities favor subsegmental atelectasis. A 7 mm hypodense lesion within the right hepati c dome. This is too small to characterize. Cholecystectomy. The spleen, adrenal glands, and pancreas are unremarkable. The visualized loops of bowel show no wall thickening or obstruction. IMPRESSION: 1. The 3.5 cm hypodense lesion within the left kidney is consistent with a cyst. 2. There is also an 8 mm hypodense lesion within the lower pole the left kidney. This is technically too small to characterize but also favors a cyst. 3. No definite solid enhancing renal masses. Electronically signed by: Henri Banda M.D. 05/06/2018 12:40 PM
--- NOTE | 2018-05-06 18:37 | Hospitalist Progress Note ---
Date of Service May 06, 2018 Assessment & Plan (1) Renal cyst: incidental finding in CT abdomen/pelvis 35 mm intermediate density left renal mass CT renal shows possible cyst Urology consulted (2) Acute appendicitis: Status post laparoscopic appendectomy, postop day #2 recovering well post op per surgery pt is stable to be discharged home (3) GERD (gastroesophageal reflux disease): PPI and Pepcid PRN (4) Hypothyroidism: Synthroid 100mg PO per home regimen (5) Anxiety: Cymbalta (6) Leg edema: no edema on exam (7) Smoker: Strongly encouraged to quit (8) DVT prophylaxis: Heparin q12h Full Code plan to dc home tomorrow after Urology eval Subjective Abdomen feels bloated, no nausea vomiting tolerating diet, had not had any bowel movement yet Physical Exam Vital Signs (Past 24 Hours): Last Vital Signs Temp 37.0 C 05/06/18 15:35 Pulse 76 05/06/18 15:35 Resp 20 05/06/18 15:35 BP 135/84 05/06/18 15:35 Pulse Ox 95 05/06/18 15:35 Physical Exam: GENERAL: No sign of distress, HEENT: Sclera nonicteric, pink-purple bilateral equal reactive to light extraocular muscle intact Normal oral mucosa, neck: No JVD, no thyromegaly, trachea midline Lungs: Clear to auscultate, no wheeze or rales Cardiovascular: Regular S1 and S2, no murmur or gallop, no JVD, no lower extremity edema Abdomen: Soft, nontender, bowel sounds active, no hepatosplenomegaly Extremities: No rash or deformity, normal joint, Neuro: No focal neurological deficit, no dysarthria, no facial droop Psych: Alert awake oriented x3: Euthymic Skin: No rash LYMPH NODES: No cervical lymphadenopathy (1) Acute appendicitis Acute appendicitis type: unspecified acute appendicitis type Qualified Code(s): K35.80 - Unspecified acute appendicitis
[2018-05-06] MEDS ORDERED: BISACODYL 5 MG TABEC PO PRN (21:39)
[2018-05-06] MEDS ORDERED: POLYETHYLENE (MIRALAX) 17 GM PACK PO PRN (21:39)
[2018-05-06] MEDS: DOCUSATE SODIUM 100 MG CAP PO SCH (22:24)
[2018-05-07] MEDS: cefOXitin 2,000 MG in DEXTROSE 5% 50 ML IV SCH ×3 (02:27→17:00)
[2018-05-07] MEDS: LEVOTHYROXINE SODIUM 100 MCG TABLET PO SCH (05:06)
[2018-05-07] MEDS: HYDROCODONE/ACETAMOPHEN 5/325MG TAB PO PRN ×2 (05:11→10:53)
[2018-05-07] MEDS ORDERED: FAMOTIDINE 20 MG TAB PO PRN (08:47)
--- NOTE | 2018-05-07 08:48 | Urology Consultation ---
Date of Consultation May 07, 2018 Assessment & Plan (1) Tobacco use: (2) Hypothyroidism: (3) Cyst of left kidney: I reviewed the ct scan kidney with and without dye with pt and . No enhancement so not cancer. no follow up imaging needed. I spoke with her for several minutes about smoking cessation. She is open to trying. Present on Admission?: Yes History of Present Illness Reason for Consultation: left renal cyst Requesting Physician: Dr Aguirre Attending Physician: Isabelle Aguirre MD History of Present Illness I am asked by Dr Aguirre to evaluate and treat patient for renal cyst. It was noted incidentally on ct scan for abdominal pain. She has since been diagnosed with appendicitis and had successful surgery. She has had repeat imaging a renal mass protocol with and without dye which shows the mass to be a non enhancing hyperdense cyst. This is benign and needs no particular follow up or repeat imaging. I will not get to hospital until this afternoon and so she may be discharged prior to being seen which is fine. she is feeling bloated and with poor appetite today. Allergies Allergy/AdvReac Type Severity Reaction Status Date / Time amoxicillin AdvReac Intermediate nausea Verified 05/04/18 16:36 Home Medications Home Medications Medication Instructions Recorded Confirmed Type clarithromycin 500 mg PO BID 05/04/18 05/04/18 History cyanocobalamin (vitamin B-12) 1,000 mcg PO DAILY 05/04/18 05/04/18 History [Vitamin B-12] duloxetine [Cymbalta] 60 mg PO DAILY 05/04/18 05/04/18 History furosemide [Lasix] 40 mg PO DAILY 05/04/18 05/04/18 History ibuprofen [Advil] 200 - 600 mg PO DIRECTED PRN 05/04/18 05/04/18 History levocetirizine 5 mg PO HS 05/04/18 05/04/18 History levothyroxine 100 mcg PO DAILYBB 05/04/18 05/04/18 History montelukast 10 mg PO PM 05/04/18 05/04/18 History omega 3-ekq-uwb-fish oil [Fish Oil] 1 cap PO DAILY 05/04/18 05/04/18 History omeprazole 40 mg PO DAILY 05/04/18 05/04/18 History potassium chloride 20 meq PO DAILY 05/04/18 05/04/18 History prednisone 0 mg PO DAILY 05/04/18 05/04/18 History vitamin E 400 unit PO DAILY 05/04/18 05/04/18 History ciprofloxacin HCl [Cipro] 500 mg PO BID #10 tab 05/05/18 Rx hydrocodone-acetaminophen [Bent] 1 - 2 tab PO Q6H #30 tab 05/05/18 Rx hydrocodone-acetaminophen [Bent] 1 - 2 tab PO Q6H #30 tab 05/05/18 Rx hydrocodone-acetaminophen [Bent] 1 - 2 tab PO Q6H #30 tab 05/05/18 Rx Patient History Medical History Tobacco use (Chronic) History of hysterectomy (Chronic) Fibromyalgia (Chronic) Anxiety (Chronic) Hypothyroidism (Chronic) GERD (gastroesophageal reflux disease) (Chronic) Leg edema (Chronic) Surgical History History of cholecystectomy (Chronic) Hx of tonsillectomy (Chronic) Family History Other Cancer Coronary heart disease Social History Preferred Language: Danish Beliefs That Will Affect Care: None marital status: Current Living Situation: Significant Other Other Information That Helps Us Care for You: No Feels Safe at Home: Yes Safety Concerns: Feels Safe At This Time Smoking Status: Current every day smoker Hx Alcohol Use: Yes Hx Substance Use: No Review of Systems Fam Hx- no stones, no cancer, Mi dad, Leukemia mom Soc- 1 ppd tobacco, social alcohol, with children ROS- no chest pain no shortness of breath, + nausea, no emesis, + bloated, had bm but feels constipated, no rash, no seizure, urination fine, + chronic cough/ + weakness no numbness Physical Exam Vital Signs (Past 24 Hours): Last Vital Signs Temp 36.7 C 05/07/18 07:00 Pulse 72 05/07/18 07:00 Resp 16 05/07/18 07:00 BP 147/82 H 05/07/18 07:00 Pulse Ox 94 05/07/18 07:00 Constitutional: WD/WN, vitals as above well nourished, + obese, healthy appearing and well groomed Eyes: PERRL, conjunctivae normal, anicteric sclerae Respiratory: normal respiratory effort and + cough; no respiratory distress, does not use accessory muscles and not tachypneic Gastrointestinal (Abdomen): Inspection/Auscultation: + abdomen distended; no abdominal edema Percussion/Palpation: + abdomen tender and + tympanic to percussion Psychiatric: A+Ox3, euthymic affect
--- NOTE | 2018-05-07 09:12 | Surgery Progress Note ---
Date of Service May 07, 2018 Assessment & Plan (1) Acute appendicitis: POD #3 s/p Lap Appendectomy Pt seen and examined with Dr. Baldwin. Pt reports increased abdominal pain this AM with nausea. Denies emesis, denies bowel movement since surgery. Will order KUB this AM, CBC, BMP. Urology consult placed for incidental finding of renal cyst. Will re-evaluate patient after imaging and labwork completed. Subjective Pt reports abdominal pain this AM- states that she has been trying to not take any pain medication. In addition, she states that she is nauseous this AM. Denies any episodes of emesis. Physical Exam Vital Signs (Past 24 Hours): Last Vital Signs Temp 36.7 C 05/07/18 07:00 Pulse 72 05/07/18 07:00 Resp 16 05/07/18 07:00 BP 147/82 H 05/07/18 07:00 Pulse Ox 94 05/07/18 07:00 Gastrointestinal (Abdomen): Inspection/Auscultation: + abdomen distended and + abdominal surgical incision (clean, dry, intact. No signs of infection at surgical incision sites. ) Percussion/Palpation: + abdomen tender (1) Acute appendicitis Acute appendicitis type: unspecified acute appendicitis type Qualified Code(s): K35.80 - Unspecified acute appendicitis
[2018-05-07] MEDS: HEPARIN SOD 5,000 UNIT/0.5 ML VIAL SQ SCH ×2 (09:16→22:07)
[2018-05-07] MEDS: PANTOprazole 40 MG TAB PO SCH (09:17)
[2018-05-07] MEDS: DOCUSATE SODIUM 100 MG CAP PO SCH ×2 (09:18→21:58)
[2018-05-07] MEDS: BUDESONIDE/FORMOTEROL FUMARATE 160/4.5 60 PUFFS/INHALER INH SCH ×2 (09:18→21:58)
[2018-05-07] MEDS: ONDANSETRON INJ 2 MG/ML 2 ML VIAL IV PRN ×2 (09:23→20:18)
--- NOTE | 2018-05-07 09:54 | XRay Report ---
KUB HISTORY: Acute generalized abdominal pain with distention s/p Appendectomy now w incre abd pain, dis tented COMPARISON: CT abdomen and pelvis 05/04/2018. FINDINGS: Prior cholecystectomy. Moderate volume of formed stool is noted throughout the colon. No definite pne umatosis or pneumoperitoneum. Bowel gas pattern is nonobstructive. No urolith identified. No acute fr acture. IMPRESSION: 1. Nonobstructive bowel gas pattern without pneumoperitoneum. 2. Moderate formed colonic stool suggests constipation. 3. Prior cholecystectomy. Electronically signed by: Angelo Vidal M.D. 05/07/2018 9:50 AM
[2018-05-07 10:28] LABS: Basophils # (auto) 0.02 K/uL (0-0.2); Basophils % (auto) 0.3 %; Eosinophils # (auto) 0.02 K/uL (0-0.5); Eosinophils % (auto) 0.3 %; Hematocrit (blood only) 34.8 % (37-47); Immature Granulocytes # (auto) 0.02 K/uL (0.00-0.02); Immature Granulocytes % (auto) 0.3 %; Lymphocytes # (auto) 2.21 K/uL (1.2-3.4); Lymphocytes % (auto) 32.1 %; Mean Corpuscular Hgb Conc 34.5 g/dL (32-36); Mean Corpuscular Volume 90.9 fL (80-100); Mean Platelet Volume 10.1 fL (7.4-10.4); Monocytes # (auto) 0.61 K/uL (0.11-0.59); Monocytes % (auto) 8.9 %; Neutrophils % (auto) 58.1 %; Platelet Count 149 K/uL (130-400); RDW Coefficient of Variation 13.1 % (11.5-14.5); RDW Standard Deviation 43.3 fL (36.4-46.3); Red Blood Count 3.83 M/uL (4.2-5.4); White Blood Count 6.88 K/uL (4.8-10.8)
[2018-05-07 10:55] LABS: BUN Creatinine Ratio 19.9 (10-20); Calcium 8.7 mg/dl (8.5-10.1); Creatinine Clr Calc Pharmacy 126.9 ml/min; Est GFR (African American) 116.1; Est GFR (Non-African American) 100.1; Potassium 3.5 mmol/L (3.5-5.1)
[2018-05-07] MEDS ORDERED: SOD PHOSPHATE/SOD BIPHOSPHATE ENEMA 132 ML BTL PR STA (11:30)
[2018-05-07] MEDS ORDERED: KETOROLAC TROMETHAMINE 15 MG/ML VIAL IV PRN (16:23)
[2018-05-07] MEDS ORDERED: HYDROCODONE/ACETAMOPHEN 5/325MG TAB PO PRN (17:00)
--- NOTE | 2018-05-07 18:08 | Hospitalist Progress Note ---
Date of Service May 07, 2018 Assessment & Plan (1) Renal cyst: incidental finding in CT abdomen/pelvis 35 mm intermediate density left renal mass CT renal shows possible cyst Urology consulted appreciate input, benign findings, no further invasive investigation or follow-up needed (2) Acute appendicitis: Status post laparoscopic appendectomy, postop day #3 recovering well post op Of abdominal pain, nausea this morning, KUB and S x-ray shows possible ileus, continue bowel regimen patient is encouraged for ambulation activity (3) GERD (gastroesophageal reflux disease): PPI and Pepcid PRN (4) Hypothyroidism: Synthroid 100mg PO per home regimen (5) Anxiety: Cymbalta (6) Leg edema: no edema on exam (7) Smoker: Strongly encouraged to quit (8) DVT prophylaxis: Heparin q12h Full Code Plan to DC home in next 24-48 hours as abdomen pain and nausea improves Subjective Bowel movement today abdomen feels bloated, episodes of nausea earlier after taking Carlton still constipated taking bowel regimen, wants to discontinue Carlton and try some nonnarcotic pain medication ordered for Toradol Physical Exam Vital Signs (Past 24 Hours): Last Vital Signs Temp 36.7 C 05/07/18 16:08 Pulse 87 05/07/18 16:08 Resp 17 05/07/18 16:08 BP 136/77 05/07/18 16:08 Pulse Ox 94 05/07/18 16:08 Constitutional: WD/WN, vitals as above well nourished, + obese, healthy appearing and well groomed Eyes: PERRL, conjunctivae normal, anicteric sclerae ENMT: Mouth: + dentition abnormality; no TMJ abnormality and no TMJ clicking Mallampati Class: II Neck: normal visual inspection and + thick neck Respiratory: normal respiratory effort and + cough; no respiratory distress, does not use accessory muscles and not tachypneic Auscultation: lungs clear to auscultation bilaterally Cardiovascular: Rate/Rhythm: regular rate and regular rhythm Gastrointestinal (Abdomen): Inspection/Auscultation: + abdomen distended and + abdominal surgical incision (clean, dry, intact. No signs of infection at surgical incision sites. ); no abdominal edema Percussion/Palpation: + abdomen tender and + tympanic to percussion Musculoskeletal: Spine: normal cervical ROM and no pain with cervical ROM Neurologic: moves all extremities Motor/Sensory: no sensory deficit Psychiatric: A+Ox3, euthymic affect Orientation: alert and oriented x 3 (1) Acute appendicitis Acute appendicitis type: unspecified acute appendicitis type Qualified Code(s): K35.80 - Unspecified acute appendicitis
[2018-05-07] MEDS: POLYETHYLENE (MIRALAX) 17 GM PACK PO SCH (21:58)
[2018-05-08] MEDS: cefOXitin 2,000 MG in DEXTROSE 5% 50 ML IV SCH ×2 (01:58→09:39)
[2018-05-08] MEDS: LEVOTHYROXINE SODIUM 100 MCG TABLET PO SCH (05:39)
--- NOTE | 2018-05-08 08:17 | Surgery Progress Note ---
Date of Service May 08, 2018 Assessment & Plan (1) Acute appendicitis: POD 4 lap appy will give mag citrate seen by urology for renal cyst ok for discharge seen with Dr. Baldwin Subjective small BM, tolerating diet Physical Exam Vital Signs (Past 24 Hours): Last Vital Signs Temp 37.0 C 05/08/18 06:55 Pulse 74 05/08/18 06:55 Resp 16 05/08/18 06:55 BP 134/79 05/08/18 06:55 Pulse Ox 95 05/08/18 06:55 Gastrointestinal (Abdomen): Inspection/Auscultation: abdomen not distended Percussion/Palpation: abdomen soft (1) Acute appendicitis Acute appendicitis type: unspecified acute appendicitis type Qualified Code(s): K35.80 - Unspecified acute appendicitis
[2018-05-08] MEDS ORDERED: MAGNESIUM CITRATE 296 ML/BTL PO SCH (08:30)
[2018-05-08] MEDS: HEPARIN SOD 5,000 UNIT/0.5 ML VIAL SQ SCH (09:09)
[2018-05-08] MEDS: POLYETHYLENE (MIRALAX) 17 GM PACK PO SCH (09:10)
[2018-05-08] MEDS: BUDESONIDE/FORMOTEROL FUMARATE 160/4.5 60 PUFFS/INHALER INH SCH (09:10)
[2018-05-08] MEDS: DOCUSATE SODIUM 100 MG CAP PO SCH (09:10)
[2018-05-08] MEDS: PANTOprazole 40 MG TAB PO SCH (09:10)
--- NOTE | 2018-05-08 16:52 | Discharge Summary ---
Date of Service May 08, 2018 Admission HPI Per Admitting Provider 52 y/o F with PMH anxiety, fibromyalgia, GERD, LE edema, tobacco use, hypothryoidism presented to ER with c/o RLQ abdominal pain, nausea, dry heaves that started today and pt was found to have acute appendicitis on CT abd/pelvis. Seen for medical consultation at request of Dr Logan who is taking her to OR this evening. Pt states recent URI symptoms and tomorrow is last day of clarithromycin and prednisone. Denies known fever, diaphoresis, diarrhea, ANNE, dizziness, syncope, vision changes, neck pain, CP, SOB, orthopnea, palpitations, cough, sore throat, choking, otalgia, rhinorrhea, abdominal pain, paresthesias, increased extremity edema, rashes, urinary symptoms. Dr Blanco Surgery : Acute appendicitis: Patient with acute appendicitis. I have discussed with her and her laparoscopic appendectomy with possible open appendectomy. They do understand potential complications of bleeding infection bowel and bladder injury and do wish to proceed. I will asked the [facility] hospitalist to help with her medical management. Principal Diagnosis Acute appendicitis/renal cyst Discharge Exam GENERAL: No sign of distress, HEENT: Sclera nonicteric, pink-purple bilateral equal reactive to light extraocular muscle intact Normal oral mucosa, neck: No JVD, no thyromegaly, trachea midline Lungs: Clear to auscultate, no wheeze or rales Cardiovascular: Regular S1 and S2, no murmur or gallop, no JVD, no lower extremity edema Abdomen: Soft, nontender, bowel sounds active, no hepatosplenomegaly Extremities: No rash or deformity, normal joint, Neuro: No focal neurological deficit, no dysarthria, no facial droop Psych: Alert awake oriented x3: Euthymic Skin: No rash LYMPH NODES: No cervical lymphadenopathy Discharge Data Allergies Allergy/AdvReac Type Severity Reaction Status Date / Time amoxicillin AdvReac Intermediate nausea Verified 05/04/18 16:36 Consultations 05/04/18 17:29 Consult General Surgery Stat 05/04/18 17:57 Consult Hospitalist Routine 05/06/18 20:50 Consult Urology Routine Procedures Performed Operation Date: 05/04/18 18:00 Actual Procedures p Laparoscopic Appendectomy(Not Applicable) - Elvin Logan MD, FACS Ordered Studies 05/04/18 15:52 CT abd pelvis IV con only Stat 05/06/18 11:29 CT renal wo/w con Stat Hospital Course (1) Renal cyst: incidental finding in CT abdomen/pelvis 35 mm intermediate density left renal mass CT renal shows possible cyst Urology consulted appreciate input, benign findings, no further invasive investigation or follow-up needed (2) Acute appendicitis: Status post laparoscopic appendectomy, postop day #4 recovering well post op Appreciate input from surgery, stable to be discharged home (3) GERD (gastroesophageal reflux disease): PPI and Pepcid PRN (4) Hypothyroidism: Synthroid 100mg PO per home regimen (5) Anxiety: Cymbalta (6) Leg edema: no edema on exam (7) Smoker: Strongly encouraged to quit (8) DVT prophylaxis: Heparin q12h Full Code Disposition: Stable to be discharged home today Total Time Total Time Spent Total Time Spent (In Minutes): approx 35 mins Total Time Includes: Examination of the Patient, Discharge Planning and Medication Reconciliation Discharge Plan Discharge Items Patient Disposition: Home - Self-Care Reason For Visit: APPENDICITIS Discharge Diagnosis: acute appendicitis/renal cyst Discharge Goals: Decrease discomfort, Improve disease control and Improve function Activity: As commented below Activity Comment: light activity for 3 weeks Lifting: No more than 25 pounds Bathing Comment: may shower Sexual Activity: When tolerated Exercise Comment: wait 3 weeks Driving/Machine Use: Resume 3 days after discharge Non-emergency contact: Primary Care Provider and Surgeon Call non-emergency contact if: your pain is not controlled, your temperature is above 101 and your wound has increased drainage Follow-up/Referrals: Kg Martines [Primary Care Provider] - Diet: Regular Addtl Provider Instructions: SPECIAL CARE INSTRUCTIONS: * Cover incisions and change daily for comfort/drainage. May leave uncovered with dermabond * Leave steri strips in place * May use ibuprofen for pain as tolerated. * Expect some swelling and bruising. Call your doctor if: * Temperature above 101 degrees * Pain not relieved by pain medicine ordered * There is increased drainage or redness from any incision * You have any unanswered questions or concerns [phone]. FOLLOW UP VISIT: If not already scheduled, please call the office for a follow-up visit. OFFICE PHONE NUMBER: Dr. Logan Office for 2-3 weeks- check up Prescriptions: New hydrocodone-acetaminophen [Ekwok] 5-325 mg tablet 1 - 2 tab PO Q6H Qty: 30 RF: 0 ciprofloxacin HCl [Cipro] 500 mg tablet 500 mg PO BID Qty: 10 RF: 0 hydrocodone-acetaminophen [Ekwok] 5-325 mg tablet 1 - 2 tab PO Q6H Qty: 30 RF: 0 hydrocodone-acetaminophen [Ekwok] 5-325 mg tablet 1 - 2 tab PO Q6H Qty: 30 RF: 0 Continued furosemide [Lasix] 40 mg Tablet 40 mg PO DAILY RF: 0 prednisone 10 mg Tablet PO DAILY RF: 0 cyanocobalamin (vitamin B-12) [Vitamin B-12] 1,000 mcg Tablet 1,000 mcg PO DAILY RF: 0 omeprazole 40 mg Capsule,Delayed Release(Dr/Ec) 40 mg PO DAILY RF: 0 levothyroxine 100 mcg Tablet 100 mcg PO DAILYBB RF: 0 ibuprofen [Advil] 200 mg Tablet 200 - 600 mg PO DIRECTED PRN (Reason: Pain) RF: 0 vitamin E 400 unit Capsule 400 unit PO DAILY RF: 0 duloxetine [Cymbalta] 60 mg Capsule,Delayed Release(Dr/Ec) 60 mg PO DAILY RF: 0 levocetirizine 5 mg Tablet 5 mg PO HS RF: 0 omega 4-jhq-ihu-fish oil [Fish Oil] 1,000 mg (120 mg-180 mg) Capsule 1 cap PO DAILY RF: 0 potassium chloride 20 mEq Tablet Extended Release 20 meq PO DAILY RF: 0 montelukast 10 mg Tablet 10 mg PO PM RF: 0 Discontinued clarithromycin 500 mg Tablet 500 mg PO BID RF: 0 Visit Report Forms: Smoking Cessation Stand-Alone Forms: [facility], Opioid Pain Management, Work/School Release (Inpt) Discharge Orders: Discharge Order (Routine); Ordered 05/08/18 Ordered By: Alverto Lott Jr Admission Data Admit Date/Time: 05/04/18 20:40 Attending Provider: Isabelle Aguirre Admit Provider: Elvin Logan Primary Care Provider: Kg Martines Other Providers: Jagjit Diamond ; Wilder Steele ; Dwayne Palma ; Michelle Coyne ; Aby Larson ; Roxann Keller ; Usama Morris S ; William Iglesias ; Bud Lema ; Km Siddiqi ; Radha Winslow ; Isabelle Aguirre ; Esperanza Rider ; Aden Ferris ; Derek Zamarripa ; Lacy Sumner ; Maeve Mitchell ; Derek Ziegler ; Elvin Logan ; Natalee Razo Service: Surgical Services Other Interventions: Discharge Summary Assessment (RN) Last Done: 05/08/18 16:11
== END 2018-05-08 17:20 | disposition home or self-care (01) | DRG 342 ==
LOC: ED 15:15 → 3E 18:45 → SUATTDRO 20:40

== ENCOUNTER 2018-12-24 15:46 | Inpatient (IN) ==
[2018-12-24] MEDS ORDERED: ONDANSETRON INJ 2 MG/ML 2 ML VIAL IV STA (16:21)
[2018-12-24] MEDS ORDERED: HYDROmorphone INJ 0.5 MG/0.5 ML SYR IV STA ×2 (16:21→20:53)
[2018-12-24 16:56] LABS: Basophils # (auto) 0.02 K/uL (0-0.2); Basophils % (auto) 0.3 %; Eosinophils # (auto) 0.14 K/uL (0-0.5); Eosinophils % (auto) 2.2 %; Hematocrit (blood only) 37.4 % (37-47); Lymphocytes # (auto) 2.98 K/uL (1.2-3.4); Lymphocytes % (auto) 47.7 %; Mean Corpuscular Hemoglobin 31.3 pg (25-34); Mean Corpuscular Hgb Conc 34.8 g/dL (32-36); Mean Corpuscular Volume 89.9 fL (80-100); Mean Platelet Volume 9.6 fL (7.4-10.4); Monocytes # (auto) 0.43 K/uL (0.11-0.59); Monocytes % (auto) 6.9 %; Neutrophils # (auto) 2.68 K/uL (1.4-6.5); Neutrophils % (auto) 42.9 %; Platelet Count 174 K/uL (130-400); RDW Coefficient of Variation 12.8 % (11.5-14.5); RDW Standard Deviation 41.7 fL (36.4-46.3); Red Blood Count 4.16 M/uL (4.2-5.4); White Blood Count 6.25 K/uL (4.8-10.8)
[2018-12-24 17:12] LABS: Alanine Aminotransferase 29 U/L (12-78); Albumin Level 3.2 gm/dl (3.4-5.0); Aspartate Aminotransferase 23 U/L (15-37); BUN Creatinine Ratio 10.3 (10-20); Bilirubin Direct < 0.1 mg/dl (0-0.2); Blood Urea Nitrogen 8 mg/dl (7-18); Calcium 9.3 mg/dl (8.5-10.1); Carbon Dioxide 28 mmol/L (21-32); Chloride 109 mmol/L (98-107); Creatinine Clr Calc Pharmacy 92.6 ml/min; Est GFR (African American) 93.4; Est GFR (Non-African American) 80.6; Glucose 94 mg/dl (70-99); Lipase 216 U/L (73-393); Potassium 3.7 mmol/L (3.5-5.1); Sodium 141 mmol/L (136-145)
[2018-12-24 17:24] LABS: Alkaline Phosphatase 76 U/L (45-117); Bilirubin,Total 0.2 mg/dl (0.2-1); Total Protein 7.1 gm/dl (6.4-8.2); Troponin I 0.218 ng/ml (0-0.045)
[2018-12-24] MEDS ORDERED: Heparin IV Low Dose WITH Bolus IV STA (17:42)
[2018-12-24 17:44] LABS: Partial Thromboplastin Ratio 0.9; Partial Thromboplastin Time 24.8 Seconds (21.0-31.0); Prothrombin Time 9.8 Seconds (9.0-12.0)
[2018-12-24 17:45] LABS: D Dimer 2040 ug/L FEU (0-500)
[2018-12-24] MEDS ORDERED: HEPARIN SODIUM/DEXTROSE 25,000 UNITS/500 ML BAG IV SCH ×2 (17:45→20:53)
[2018-12-24] MEDS ORDERED: HEPARIN SOD 5,000 UNIT/0.5 ML VIAL ONE (17:53)
[2018-12-24] MEDS ORDERED: OPTIRAY 320 125ml IV PRN (18:28)
--- NOTE | 2018-12-24 18:41 | CT Scan Report ---
CT ANGIOGRAM OF THE CHEST CLINICAL HISTORY: Atypical chest pain COMPARISON STUDY: Chest x-ray dated 12/24/2018 TECHNIQUE: Following the IV administration of 117 mL of Optiray-320, CT angiogram of the thorax was p erformed from the thoracic inlet to the lung bases utilizing the pulmonary embolus protocol. Images a re reviewed in the axial, sagittal, and coronal planes. IV contrast was administered without complica tion. MIP imaging was performed. A dose lowering technique was utilized adhering to the principles o f ALARA. CT DOSE: 776.74 mGy.cm FINDINGS: There is mild thyromegaly No pathologically enlarged axillary mediastinal or hilar lymph nodes were visualized. There was no evidence of thoracic aortic dilatation. There were no pulmonary artery filling defects to indicate acute pulmonary embolism. No pleural effusions are visualized. There are mild dependent atelectatic changes. There are no airspace opacity suspicious for pneumonia. There is a solid 5 mm left upper lobe pulmonary nodule abutting the fissure. . There is a 2.5 mm rig ht upper lobe pulmonary nodule, likely representing a granuloma with faint calcification IMPRESSION: 1. No evidence of acute pulmonary embolism 2. No evidence of pneumonia 3. No evidence of pneumothorax 4. Solid 5 mm left upper lobe pulmonary nodule. In a low risk patient, no further follow-up is indica diallo. In a high-risk patient, a 12 month follow-up is optional Please refer to below summary of Fleischner criteria recommendations for follow-up of incidental CT n odules (Starla Jennings, Guidelines for management of small pulmonary nodules detected on CT scans: A sta tement from the Fleischner Society, Radiology 237: [phone].) SOLID NODULES Solitary nodule size: <6 mm * low risk patients: no follow-up needed * high risk patients: optional CT at 12 months Solitary nodule size: 6-8 mm * low risk patients: follow-up at 6-12 months, then consider further follow-up at 18-24 months * high risk patients: initial follow-up CT at 6-12 months and then at 18-24 months if no change Solitary nodule size: >8 mm * either low or high risk patients - consider follow-up CT at 3 months, and/or CT-PET, and/or biopsy Multiple nodules size: <6 mm * low risk patients: no routine follow-up * high risk patients: optional CT at 12 months Multiple nodules size: 6-8 mm * low risk patients: follow-up at 3-6 months, then consider further follow-up at 18-24 months * high risk patients: follow-up at 3-6 months, then at 18-24 months if no change Multiple nodules size: >8 mm * low risk patients: follow-up at 3-6 months, then consider further follow-up at 18-24 months * high risk patients: follow-up at 3-6 months, then at 18-24 months if no change Note: newly detected indeterminate nodule in persons 35 years of age or older. * low risk patients: minimal or absent history of smoking and/or other known risk factors * high risk patients: history of smoking or of other known risk factors (e.g. first degree relative with lung cancer, or exposure to asbestos, radon, uranium) * if a nodule up to 8 mm is partly solid or is ground glass further follow-up is required after 24 m onths to exclude possible slow growing adenocarcinoma (MALLIKA) SUBSOLID NODULES Solitary pure ground-glass nodule * nodule size <6 mm - no CT follow-up required * nodule size >=6 mm - follow-up CT at 6-12 months, then every 2 years until 5 years Solitary part-solid nodule * nodule size <6 mm - no CT follow-up required * nodule size >=6 mm - follow-up CT at 3-6 months. If unchanged, and solid component remains <6 mm, then annual follow-up for 5 years Multiple subsolid nodules * nodule size <6 mm - follow-up CT at 3-6 months, consider further follow-up at 2 and 4 years if sta ble * nodule size >=6 mm - follow-up CT at 3-6 months, subsequent management based on the most suspiciou s nodule(s) Electronically signed by: Apollo Winchester M.D. 12/24/2018 6:39 PM
[2018-12-24] MEDS ORDERED: NITROGLYCERIN 2% OINTMENT 30GM TUBE ONE (19:06)
[2018-12-24] MEDS ORDERED: HYDROmorphone INJ 0.5 MG/0.5 ML SYR ONE (19:19)
[2018-12-24] MEDS ORDERED: ASPIRIN CHEW 324 MG ONE (19:37)
--- NOTE | 2018-12-24 19:53 | History & Physical Report ---
Date of Service December 24, 2018 Assessment & Plan (1) NSTEMI (non-ST elevated myocardial infarction): EPIGASTRIC/RUQ PAIN, POSSIBLE NSTEMI 1st troponin 0.21, EKG non specific changes in lead III CT abdomen/pelvis: unrevealing CT chest: No PE ASA 325mg given, Nitropaste given, Metoprolol PO 12.5mg BID ordered in light of major risk factors (active smoker, strong family history of KS), ongoing chest pain, troponin elevation, Heart alert was called, discussed case with patient and her significant other, they are agreeable with plan of care discussed case with Dr. River, patient transferred for Cardiac Cath HTN up to systolic 190s at the ER likely from pain Metoprolol 12.5mg BID , nitropaste started monitor and titrate medications SMOKER/POSSIBLE COPD not in exacerbation on Dulera at home- non-formulary, will order Advair HLD lipid profile ordered GERD continue PPI HYPOTHYROID continue Levothyroxine PULMONARY NODULES please refer to CT chest report FOLLOW UP CLOSELY OUTPATIENT FIBROMYALGIA continue Cymbalta DVT prophylaxis heparin drip ordered for NSTEMI Disposition pending lives with family at home History of Present Illness 53 year old female, history of COPD, Obesity, HLD, GERD, and other problems noted below presenting with chest pain since Friday. Patient reports sudden onset epigastric/RUQ pain- pressure- starting last Friday. Pain is progressive, worse with exertion, associated with shortness of breath and nausea. This AM, patient presented to the ED, had a CT abd/pelvis and was discharged home. She returns to the ER with persistent pain. EKG no signs of acute ischemia, but trop is 0.2. D dimer elevated at 2019, CT chest no PE. On exam, patient still reports 8/10 pain epigastric/RUQ with some nausea. Denies other symptoms. Primary Care Provider: Kg Martines MD Allergies Allergy/AdvReac Type Severity Reaction Status Date / Time amoxicillin AdvReac Intermediate nausea Verified 12/24/18 18:00 Home Medications Home Medications Medication Instructions Recorded Confirmed Type duloxetine [Cymbalta] 60 mg PO QAM 05/04/18 12/24/18 History ibuprofen [Advil] 200 - 600 mg PO DIRECTED PRN 05/04/18 12/24/18 History levothyroxine 100 mcg PO DAILYBB 05/04/18 12/24/18 History montelukast 10 mg PO QAM 05/04/18 12/24/18 History omega 9-skd-pus-fish oil [Fish Oil] 1 cap PO QAM 05/04/18 12/24/18 History omeprazole 40 mg PO QAM 05/04/18 12/24/18 History vitamin E 400 unit PO QAM 05/04/18 12/24/18 History acetaminophen [Tylenol] 325 mg PO Q6H PRN 12/24/18 12/24/18 History cholecalciferol (vitamin D3) 2,000 unit PO QAM 12/24/18 12/24/18 History [Vitamin D3] cinnamon bark [Cinnamon] 500 mg PO QAM 12/24/18 12/24/18 History famotidine [Pepcid] 20 mg PO BID 28 Days #56 tab 12/24/18 12/24/18 Rx pantoprazole [Protonix] 40 mg PO QAM 12/24/18 12/24/18 History Past Med/Surg History Medical History Tobacco use (Chronic) History of hysterectomy (Chronic) Fibromyalgia (Chronic) Anxiety (Chronic) Hypothyroidism (Chronic) GERD (gastroesophageal reflux disease) (Chronic) Leg edema (Chronic) Surgical History History of cholecystectomy (Chronic) Hx of tonsillectomy (Chronic) Family History Other Cancer Coronary heart disease Social History Preferred Language: Wolof Communication Ability: Effective 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 Beliefs That Will Affect Care: None marital status: Current Living Situation: Significant Other Feels Safe at Home: Yes Smoking Status: Current every day smoker Tobacco Type: cigarettes ; Cigarettes Per Day: 15-20 ; Hx Alcohol Use: Yes Alcohol type: beer Alcohol Intake Frequency Comment: 3-4 drinks once a month Hx Substance Use: No Review of Systems Review of Systems: All systems reviewed & are unremarkable except as noted in HPI & below Physical Exam Physical Exam: General- oriented x 3, not in distress, speaks in sentences with no effort or accessory muscle use Head- atraumatic Eyes- PERRL, EOMI, anicteric ENT- oropharynx clear Neck- supple, no JVD, no adenopathy, no thyromegaly; carotids +2/2, no bruits appreciated Lungs- clear to auscultation bilaterally, no rales/wheezes Heart- normal rate, regular rhythm; no murmur, no gallop, no rub appreciated Abdomen- normal bowel sounds, nondistended, soft, nontender, no masses or hepatosplenomegaly Extremities- no pretibial edema, no calf tenderness; peripheral pulses intact Neuro- alert, oriented x 3; CN 2-12 grossly intact; motor 5/5 bilaterally;s ensation 100% on all extremities; no other gross focal neurologic deficits Skin- warm & dry Results & Data Vital Signs (Past 12 Hours) Vital Signs Temp Pulse Resp BP Pulse Ox 12/24/18 19:28 75 19 137/86 98 12/24/18 19:00 71 22 152/63 H 97 12/24/18 18:30 81 17 147/80 H 96 12/24/18 18:00 71 13 131/88 100 12/24/18 17:50 76 14 12/24/18 17:40 70 12 97 12/24/18 17:31 72 13 92 12/24/18 17:30 73 15 133/91 91 12/24/18 17:20 69 18 91 12/24/18 17:10 68 13 94 12/24/18 17:05 76 20 143/83 H 93 12/24/18 17:00 72 12 97 12/24/18 16:58 74 14 96 12/24/18 15:54 36.8 C 91 H 20 196/95 H 95 Laboratory Results Laboratory Results - last 24 hr 12/24/18 12/24/18 12/24/18 16:44 16:44 16:44 WBC 6.25 RBC 4.16 L Hgb 13.0 Hct 37.4 MCV 89.9 MCH 31.3 MCHC 34.8 RDW Std Deviation 41.7 RDW Coeff of Kiki 12.8 Plt Count 174 MPV 9.6 Immature Gran % (Auto) 0.0 Neut % (Auto) 42.9 Lymph % (Auto) 47.7 Clare % (Auto) 6.9 Eos % (Auto) 2.2 Baso % (Auto) 0.3 Immature Gran # (Auto) 0.00 Neut # (Auto) 2.68 Lymph # (Auto) 2.98 Clare # (Auto) 0.43 Eos # (Auto) 0.14 Baso # (Auto) 0.02 PT 9.8 INR 1.0 APTT 24.8 PTT Ratio 0.9 D-Dimer 2040 H* Sodium 141 Potassium 3.7 Chloride 109 H Carbon Dioxide 28 Anion Gap 4.0 BUN 8 Creatinine 0.82 Est Cr Clr Drug Dosing 92.6 Est GFR ( Amer) 93.4 Est GFR (Non-Af Amer) 80.6 BUN/Creatinine Ratio 10.3 Glucose 94 Calcium 9.3 Total Bilirubin 0.2 Direct Bilirubin < 0.1 AST 23 ALT 29 Alkaline Phosphatase 76 Troponin I 0.218 H* Total Protein 7.1 Albumin 3.2 L Lipase 216 Code Status & VTE Plan VTE Prophylaxis Plan VTE Prophylaxis will be ordered: Yes
--- NOTE | 2018-12-24 20:38 | Pre Anesthesia Assessment ---
Date of Service December 24, 2018 Pre Sedation Assessment Vital Signs Temp Pulse Resp BP Pulse Ox 12/24/18 19:47 79 14 143/79 H 95 12/24/18 19:28 75 19 137/86 98 12/24/18 19:00 71 22 152/63 H 97 12/24/18 18:30 81 17 147/80 H 96 12/24/18 18:00 71 13 131/88 100 12/24/18 17:50 76 14 12/24/18 17:40 70 12 97 12/24/18 17:31 72 13 92 12/24/18 17:30 73 15 133/91 91 12/24/18 17:20 69 18 91 12/24/18 17:10 68 13 94 12/24/18 17:05 76 20 143/83 H 93 12/24/18 17:00 72 12 97 12/24/18 16:58 74 14 96 12/24/18 15:54 98.2 F 91 H 20 196/95 H 95 Cardiovascular RRR, no murmur, no edema Respiratory normal respiratory effort, lungs clear to auscultation Pre-Sedation Airway Assessment Smoking Status: Current every day smoker Thyromental Distance: < 3.5 Finger Breadths Oral Cavity: + WNL Mallampati Class: III ASA: ASA3 Procedure Planning Contraindications for Sedation: none Current Medications Reviewed: Yes Notes The planned sedation has been discussed with the patient. Informed Consent was obtained. I have identified the patient, determined the appropriateness of sedation and have assessed the patient immediately prior to the procedure. All medicine(s) and interventions are by my order.
--- NOTE | 2018-12-24 20:39 | Post Anesthesia Assessment ---
Date of Service December 24, 2018 Post Sedation Assessment Vital Signs Temp Pulse Resp BP Pulse Ox 12/24/18 19:47 79 14 143/79 H 95 12/24/18 19:28 75 19 137/86 98 12/24/18 19:00 71 22 152/63 H 97 12/24/18 18:30 81 17 147/80 H 96 12/24/18 18:00 71 13 131/88 100 12/24/18 17:50 76 14 12/24/18 17:40 70 12 97 12/24/18 17:31 72 13 92 12/24/18 17:30 73 15 133/91 91 12/24/18 17:20 69 18 91 12/24/18 17:10 68 13 94 12/24/18 17:05 76 20 143/83 H 93 12/24/18 17:00 72 12 97 12/24/18 16:58 74 14 96 12/24/18 15:54 98.2 F 91 H 20 196/95 H 95 Recovery Score Activity: Moves 4 extremities Respiration: Deep Breath/Cough Circulation: +/-20% PreAnes Value Consciousness: Fully Awake Oxygen Saturation: > 92% On Room Air Discharge Sedation Level of Care: Fast Track Phase II Post Sedation Plan On clinical assessment, the patient appears to have tolerated the sedation without complications. Patient is recovering as anticipated. Patient will continue to be monitored by nursing and may be discharged when sedation discharge criteria are met per below protocol. Upon Completions of procedure and additional 15 minutes continue every 5 minute vital signs and the P.A.R. score; then discharge to a Phase I or Fast Track to Phase II per the following guidelines: * Discharge Patient to appropriate Phase II area if PAR is 8 or greater or return to pre- procedure baseline. The post - procedure orders will be as directed. * If PAR score is less than 8 or not return to pre-procedure baseline then patient will follow Phase I monitoring till PAR is reached for Phase II. The Phase I may be done in procedure room or may call to secure a Phase I area. * If naloxone or flumazenil are used for reversal, hold in Phase I for continued monitoring from when last reversal dose was given for a minimum of 60 minutes or longer pending the nurse and/or physician discretion of patient condition before discharge to Phase II. Please call the Sedation Physician to re-evaluate and complete post-note for discharge to Phase II area. Do NOT discharge from procedure sedation or Phase 1 until post- sedation evaluation note is complete by procedure /sedation MD Sedation Discharge Instructions to be given to the patient at discharge to home.
--- NOTE | 2018-12-24 20:42 | Cardiac Catheterization ---
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 Cardiac Status Clinical evaluation leading to the procedure CAD Presenation: Non STEMI Anginal Classification: CCS IV Heart Failure: No Cardiogenic Shock within 24 Hours: No Cardiac Arrest within 24 Hours: No Imaging Studies Past 6 Months: No Stress Studies Past 6 Months: No Diagnostic Physicians Name: Narayan River MD Status: Urgent Closure Device Percutaneous Entry Location: Radial Closure Device: Radial Band Recommendations: Medical Therapy and/or Counseling Intraprocedure Events Significant Disection: No Perforation: No Cardiac Cath Procedure Full Procedure Date December 24, 2018 Pre-Procedure Diagnosis Pre-Procedure Diagnosis: Acute Coronary Syndrome AUC Score AUC Score: 7 Post-Procedure Diagnosis Post-Procedure Diagnosis: Normal Coronary Arteries Procedure(s) Performed Procedure(s) Performed: Coronary Angiography and Left Heart Cath Residential Fee Appraiser Narayan River MD Senior Software Project Manager(s) Last Estimated Blood Loss Estimated Blood Loss: 5 Medication(s) Medication(s): Fentanyl, Heparin, Lidocaine 1%, Nicardipine, Nitroglycerin and Versed Summary of Findings Indication: Suspected ACS Access: 6 Fr right radial artery Catheters: YANIRA Gonzalez Findings: LM -angiographically normal LAD -angiographically normal Circumflex -angiographically normal RCA -angiographically normal LVEDP -14 Arterial Closure: TR band Summary: 1. Angiographically normal coronary arteries 2. Normal intracardiac filling pressure Recommendations: Trend troponin until peak, echocardiogram in the a.m. Can discontinue heparin. Continued ASCVD risk factor modification Hemodynamics Rest Ao:: 124/80/110 Final Ao: 129/77/100 LV: 124/14 Recommendations Recommendations: Medical Therapy and/or Counseling Specimens Specimens: None Radiation Exposure (mGy) 1189 Contrast (mls) 60 Fluids (cc crystalloids) Fluids (cc crystalloids): 40 Drains Drains: None Anesthesia Moderate Procedural Complication(s) None Disposition PCU I attest to the content of the Intraoperative Record and any orders documented therein. Any exceptions are noted below.
[2018-12-24] MEDS ORDERED: ASPIRIN 325 MG ECTAB PO SCH (20:53)
[2018-12-24] MEDS ORDERED: HYDROmorphone INJ 0.5 MG/0.5 ML SYR IV PRN (20:53)
[2018-12-24] MEDS ORDERED: ACETAMINOPHEN 325 MG TAB PO PRN (20:53)
[2018-12-24] MEDS ORDERED: SODIUM CHLORIDE 0.9% 1000ML 1,000 ML IV SCH (21:00)
[2018-12-24] MEDS ORDERED: METOPROLOL TARTRATE 25 MG TAB PO SCH (21:00)
[2018-12-24] MEDS ORDERED: FAMOTIDINE 20 MG TAB PO SCH (21:00)
[2018-12-24] MEDS ORDERED: Heparin IV Low Dose *NO* Bolus IV SCH (21:30)
[2018-12-24] MEDS: PANTOprazole 40 MG in SYRINGE 0 ML IV SCH (21:43)
[2018-12-24] MEDS: SODIUM CHLORIDE 0.9% 1000ML 1,000 ML IV SCH (21:58)
[2018-12-24] MEDS ORDERED: NITROGLYCERIN 2% OINTMENT 30GM TUBE EXT SCH (22:00)
--- NOTE | 2018-12-24 22:05 | Ultrasound Report ---
US venous doppler LE BI CLINICAL HISTORY: Elevated d-dimer chest pain. Possible DVT. COMPARISON STUDY: No previous studies for comparison. FINDINGS: Real-time and color flow Doppler imaging were performed. Flow was seen within the femoral, popliteal and calf veins with no intraluminal thrombus demonstrated. The saphenous vein is patent. IMPRESSION: No evidence of lower extremity DVT. Electronically signed by: Apollo Winchester M.D. 12/24/2018 10:04 PM
[2018-12-24] MEDS: ACETAMINOPHEN 1,000 MG/100 ML VIAL IV SCH (22:06)
--- NOTE | 2018-12-24 23:34 | Emergency Department Note ---
Entered by Josee Wick acting as a scribe for History of Present Illness General Chief complaint: Rib Injury/Pain Stated complaint: RIB PAIN BACK PAIN Time Seen by Provider: 12/24/18 16:05 Source: patient History of Present Illness Onset (ago): day(s) (4) Location: chest (ribs) Radiation: back Pain Consistency: + other (worsening) Maximum Pain Intensity: 8 Associated symptoms: + denies other symptoms (blood in urine, coughing or vomiting blood) and + nausea/vomiting (positive nausea, negative vomiting) The patient is a 53 year old female who presents to the Emergency Room with complaints of worsening right-sided rib pain beginning 4 days ago. The patient reports the pain radiating into her back and across her chest. She reports nausea. The patient denies vomiting, shortness of breath, blood in her urine, and coughing or vomiting blood. The patient states she was seen in the ER this morning for the same pain. She notes after returning home the pain continued and she was unable to rest. She states she thinks it might be an ulcer. The patient reports a history of a cholecystectomy. Home Medications Home Medications Medication Instructions Recorded Confirmed Type duloxetine [Cymbalta] 60 mg PO QAM 05/04/18 12/24/18 History ibuprofen [Advil] 200 - 600 mg PO DIRECTED PRN 05/04/18 12/24/18 History levothyroxine 100 mcg PO DAILYBB 05/04/18 12/24/18 History montelukast 10 mg PO QAM 05/04/18 12/24/18 History omega 0-[id number]-fish oil [Fish Oil] 1 cap PO QAM 05/04/18 12/24/18 History omeprazole 40 mg PO QAM 05/04/18 12/24/18 History vitamin E 400 unit PO QAM 05/04/18 12/24/18 History acetaminophen [Tylenol] 325 mg PO Q6H PRN 12/24/18 12/24/18 History cholecalciferol (vitamin D3) 2,000 unit PO QAM 12/24/18 12/24/18 History [Vitamin D3] cinnamon bark [Cinnamon] 500 mg PO QAM 12/24/18 12/24/18 History famotidine [Pepcid] 20 mg PO BID 28 Days #56 tab 12/24/18 12/24/18 Rx pantoprazole [Protonix] 40 mg PO QAM 12/24/18 12/24/18 History Allergies Allergy/AdvReac Type Severity Reaction Status Date / Time amoxicillin AdvReac Intermediate nausea Verified 12/24/18 18:00 Past Med/Surg History Medical History Tobacco use (Chronic) History of hysterectomy (Chronic) Fibromyalgia (Chronic) Anxiety (Chronic) Hypothyroidism (Chronic) GERD (gastroesophageal reflux disease) (Chronic) Leg edema (Chronic) Surgical History History of cholecystectomy (Chronic) Hx of tonsillectomy (Chronic) Family History Other Cancer Coronary heart disease Social History Preferred Language: [place] Communication Ability: Effective 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 and A total of 10 systems reviewed and were otherwise negative Physical Exam Vital Signs Vital Signs - 24 hr 12/24/18 15:54 12/24/18 16:58 12/24/18 17:00 Temperature 36.8 C Temperature Source Oral Sepsis Recent Fever Within 48 Hours No Sepsis New/Unexplained Change in Mental Status No Sepsis Action Taken by Nursing No Action Required Pulse Rate 91 H 74 72 Pulse Rate from SpO2 Sensor 70 72 Respiratory Rate 20 14 12 Respiratory Effort / Characteristics Non-Labored Spontaneous Respiratory Depth Normal Respiratory Pattern Regular Blood Pressure 196/95 H Blood Pressure Mean 128 Pulse Oximetry 95 96 97 Oxygen Delivery Method Room Air 12/24/18 17:05 12/24/18 17:10 12/24/18 17:20 Temperature Temperature Source Sepsis Recent Fever Within 48 Hours Sepsis New/Unexplained Change in Mental Status Sepsis Action Taken by Nursing Pulse Rate 76 68 69 Pulse Rate from SpO2 Sensor 74 66 70 Respiratory Rate 20 13 18 Respiratory Effort / Characteristics Respiratory Depth Respiratory Pattern Blood Pressure 143/83 H Blood Pressure Mean 103 Pulse Oximetry 93 94 91 Oxygen Delivery Method 12/24/18 17:30 12/24/18 17:31 12/24/18 17:40 Temperature Temperature Source Sepsis Recent Fever Within 48 Hours Sepsis New/Unexplained Change in Mental Status Sepsis Action Taken by Nursing Pulse Rate 73 72 70 Pulse Rate from SpO2 Sensor 73 72 69 Respiratory Rate 15 13 12 Respiratory Effort / Characteristics Respiratory Depth Respiratory Pattern Blood Pressure 133/91 Blood Pressure Mean 105 Pulse Oximetry 91 92 97 Oxygen Delivery Method 12/24/18 17:50 12/24/18 18:00 12/24/18 18:30 Temperature Temperature Source Sepsis Recent Fever Within 48 Hours Sepsis New/Unexplained Change in Mental Status Sepsis Action Taken by Nursing Pulse Rate 76 71 81 Pulse Rate from SpO2 Sensor 76 72 82 Respiratory Rate 14 13 17 Respiratory Effort / Characteristics Respiratory Depth Respiratory Pattern Blood Pressure 131/88 147/80 H Blood Pressure Mean 102 102 Pulse Oximetry 100 96 Oxygen Delivery Method 12/24/18 19:00 12/24/18 19:28 12/24/18 19:47 Temperature Temperature Source Sepsis Recent Fever Within 48 Hours Sepsis New/Unexplained Change in Mental Status Sepsis Action Taken by Nursing Pulse Rate 71 75 79 Pulse Rate from SpO2 Sensor 72 78 Respiratory Rate 22 19 14 Respiratory Effort / Characteristics Respiratory Depth Respiratory Pattern Blood Pressure 152/63 H 137/86 143/79 H Blood Pressure Mean 92 103 Pulse Oximetry 97 98 95 Oxygen Delivery Method Oxymask GENERAL: She is oriented to person, place, and time. She appears well-developed and well-nourished. She does not appear distressed. HENT: Exam performed. Head: Normocephalic and atraumatic. Right Ear: External ear normal. No mastoid tenderness. Left Ear: External ear normal. No mastoid tenderness. Mouth/Throat: The oropharynx is clear and moist. No trismus in the jaw. No dental abscesses or uvula swelling. No oropharyngeal exudate or tonsillar abscesses. EYES: Conjunctivae and EOM are normal. Pupils are equal, round, and reactive to light. Right eye exhibits no discharge. Left eye exhibits no discharge. No scler al icterus. NECK: Normal range of motion. Neck supple. No JVD present. No spinous process tenderness present. No carotid bruit present. No rigidity. No tracheal deviation and normal range of motion present. No Brudzinski's sign and no Kernig's sign noted. CV: Normal rate, regular rhythm, normal heart sounds and intact distal pulses. There is no peripheral edema. Palpable radial pulses bue. PULM/CHEST: Effort normal and breath sounds normal. No respiratory distress. No stridor. She has no wheezes. She has no rales. Chest Wall: She exhibits no tenderness. ABD: Pain to palpation of epigastric area. The abdomen is soft. Bowel sounds are normal. She has no distension. No mass is present. There is no rebound, no guarding, no Pina's sign and no tenderness at McBurney's point. Rovsig negative MUSC/SKEL: Right-sided CVA tenderness. Normal range of motion. There is no peripheral edema, tenderness or deformity. LYMPH: No cervical adenopathy. NEURO: She is alert and oriented to person, place, and time. She has normal strength. No cranial nerve deficit or sensory deficit. Coordination and gait normal. GCS eye subscore is 4. GCS verbal subscore is 5. GCS motor subscore is 6. cerbellar tests wnl. SKIN: Skin is warm and dry. She is not diaphoretic. PSYCH: She has a normal mood and affect. Her behavior is normal. Judgment and thought content normal. Course 1601: Past medical records reviewed. The patient was seen on December 24 at 7:19am. The patient had blood work done. CBC, BMP, hepatic, and lipase were all within normal limits. The patient's urine, chest x-ray, and CT of the abdomen and pelvis were negative. 1611: The patient was evaluated in room C05. A complete history and physical exam was performed. 1740: Upon reevaluation, the patient's vital signs were stable. Her labs showed an elevated troponin of 0.218. The patient reports being pain free after receiving 1mg of Dilaudid. The patient is resting comfortably. She will receieve heparin for an N-STEMI. I discussed findings and results with the patient. She verbalized agreement of the treatment plan. I spoke with Dr. Siddiqi of the [facility]. The patient will be evaluated for further management and care. Administered Medications Famotidine (Pepcid) 20 mg PO BID BARBI Stop: 01/23/19 20:59 Last Admin: 12/24/18 22:01 Dose: Not Given Documented by: [id number] Sodium Chloride (Nss 1000ml) 1,000 mls @ 100 mls/hr IV .Q10H [facility] Stop: 12/25/18 04:29 Last Admin: 12/24/18 21:24 Dose: 100 mls/hr Documented by: [id number] Acetaminophen (Ofirmev) 1,000 mg in 100 mls @ 400 mls/hr IV Q8H [facility] Stop: 12/27/18 21:59 Last Infusion: 12/24/18 22:21 Dose: 0 mls/hr Documented by: [id number] Admin: 12/24/18 22:06 Dose: 400 mls/hr Documented by: [id number] Sodium Chloride (Nss 1000ml) 1,000 mls @ 125 mls/hr IV .Q8H [facility] Stop: 01/23/19 20:52 Last Admin: 12/24/18 21:58 Dose: Not Given Documented by: [id number] Pantoprazole Sodium 40 mg/ (Syringe) 10 mls @ 5 mls/min IV BID@0900,2100 [facility] Stop: 01/23/19 20:59 Last Admin: 12/24/18 21:43 Dose: 5 mls/min Documented by: [id number] Ioversol (Optiray 320 125ml) 117 ml IV ONCE PRN PRN Reason: Interaction Checking Stop: 12/28/18 18:27 Last Admin: 12/24/18 18:28 Dose: 1 ml Documented by: [id number] Discontinued Medications Aspirin (Aspirin) Confirm Administered Dose 324 mg .ROUTE .STK-MED ONE Stop: 12/24/18 19:38 Last Admin: 12/24/18 19:38 Dose: 324 mg Documented by: [id number] Aspirin (Ecotrin) 325 mg PO QAM [facility] Stop: 01/23/19 20:52 Last Admin: 12/24/18 21:43 Dose: 325 mg Documented by: [id number] Heparin Sodium (Porcine) (Heparin Sodium (Porcine)) Confirm Administered Dose 5,000 units .ROUTE .STK-MED ONE Stop: 12/24/18 17:54 Last Admin: 12/24/18 17:58 Dose: 4,000 units Documented by: [id number] Cosigned by: [id number] Heparin Sodium/Dextrose () 1 ea IV NOW STA; Protocol Stop: 12/24/18 17:43 Last Admin: 12/24/18 18:02 Dose: Not Given Documented by: [id number] Hydromorphone HCl (Dilaudid) 1 mg IV NOW STA Stop: 12/24/18 16:22 Last Admin: 12/24/18 16:46 Dose: 1 mg Documented by: [id number] Hydromorphone HCl (Dilaudid) Confirm Administered Dose 0.5 mg .ROUTE .STK-MED ONE Stop: 12/24/18 19:20 Last Admin: 12/24/18 19:21 Dose: 0.5 mg Documented by: [id number] Hydromorphone HCl (Dilaudid) 0.5 mg IV NOW STA Stop: 12/24/18 20:54 Last Admin: 12/24/18 21:24 Dose: 0.5 mg Documented by: [id number] Heparin Sodium/Dextrose (Heparin Sodium/Dextrose) 25,000 units in 500 mls @ 18 mls/hr IV .Q24H [facility]; Protocol Stop: 01/23/19 17:44 Last Titration: 12/24/18 23:05 Dose: 0 units/hr, 0 mls/hr Documented by: [id number] Cosigned by: [id number] Admin: 12/24/18 17:59 Dose: 900 units/hr, 18 mls/hr Documented by: [id number] Cosigned by: [id number] Heparin Sodium/Dextrose (Heparin Sodium/Dextrose) 25,000 units in 500 mls @ 0.02 mls/hr IV .Q24H [facility]BI; Protocol Stop: 01/23/19 20:52 Last Admin: 12/24/18 23:05 Dose: Not Given Documented by: [id number] Metoprolol Tartrate (Lopressor) 12.5 mg PO BID [facility] Stop: 01/23/19 20:59 Last Admin: 12/24/18 21:43 Dose: 12.5 mg Documented by: [id number] Nitroglycerin (Nitro-Bid 2%) Confirm Administered Dose 18 inch .ROUTE .STK-MED ONE Stop: 12/24/18 19:07 Last Admin: 12/24/18 19:08 Dose: 0.5 inch Documented by: [id number] Nitroglycerin (Nitro-Bid 2%) 0.5 inch EXT Q6H [facility] Stop: 01/23/19 21:59 Last Admin: 12/24/18 22:05 Dose: 0.5 inch Documented by: [id number] Ondansetron HCl (Zofran) 4 mg IV NOW STA Stop: 12/24/18 16:22 Last Admin: 12/24/18 16:46 Dose: 4 mg Documented by: [id number] Medical Decision Making Medical Records Attestation: I reviewed the patient's medical records. Home Medications Current Medication List: was personally reviewed by me Laboratory Data Attestation: I reviewed the patient's lab results. Result diagrams: 12/24/18 16:44 12/24/18 16:44 Lab Results 12/24/18 12/24/18 12/24/18 Range/Units 16:44 16:44 16:44 WBC 6.25 (4.8-10.8) K/uL RBC 4.16 L (4.2-5.4) M/uL Hgb 13.0 (12.0-16.0) g/dL Hct 37.4 (37-47) % MCV 89.9 (80-100) fL MCH 31.3 (25-34) pg MCHC 34.8 (32-36) g/dL RDW Std Deviation 41.7 (36.4-46.3) fL RDW Coeff of Kiki 12.8 (11.5-14.5) % Plt Count 174 (130-400) K/uL MPV 9.6 (7.4-10.4) fL Immature Gran % (Auto) 0.0 % Neut % (Auto) 42.9 % Lymph % (Auto) 47.7 % Pine % (Auto) 6.9 % Eos % (Auto) 2.2 % Baso % (Auto) 0.3 % Immature Gran # (Auto) 0.00 (0.00-0.02) K/uL Neut # (Auto) 2.68 (1.4-6.5) K/uL Lymph # (Auto) 2.98 (1.2-3.4) K/uL Pine # (Auto) 0.43 (0.11-0.59) K/uL Eos # (Auto) 0.14 (0-0.5) K/uL Baso # (Auto) 0.02 (0-0.2) K/uL ESR (0-21) mm/hr PT 9.8 (9.0-12.0) Seconds INR 1.0 (0.9-1.1) APTT 24.8 (21.0-31.0) Seconds PTT Ratio 0.9 D-Dimer 2040 H* (0-500) ug/L FEU Sodium 141 (136-145) mmol/L Potassium 3.7 (3.5-5.1) mmol/L Chloride 109 H (98-107) mmol/L Carbon Dioxide 28 (21-32) mmol/L Anion Gap 4.0 (3-11) BUN 8 (7-18) mg/dl Creatinine 0.82 (0.6-1.2) mg/dl Est Cr Clr Drug Dosing 92.6 ml/min Est GFR ( Amer) 93.4 Est GFR (Non-Af Amer) 80.6 BUN/Creatinine Ratio 10.3 (10-20) Glucose 94 (70-99) mg/dl Calcium 9.3 (8.5-10.1) mg/dl Total Bilirubin 0.2 (0.2-1) mg/dl Direct Bilirubin < 0.1 (0-0.2) mg/dl AST 23 (15-37) U/L ALT 29 (12-78) U/L Alkaline Phosphatase 76 (45-117) U/L Troponin I 0.218 H* (0-0.045) ng/ml Total Protein 7.1 (6.4-8.2) gm/dl Albumin 3.2 L (3.4-5.0) gm/dl Lipase 216 (73-393) U/L 12/24/18 Range/Units 16:44 WBC (4.8-10.8) K/uL RBC (4.2-5.4) M/uL Hgb (12.0-16.0) g/dL Hct (37-47) % MCV (80-100) fL MCH (25-34) pg MCHC (32-36) g/dL RDW Std Deviation (36.4-46.3) fL RDW Coeff of Kiki (11.5-14.5) % Plt Count (130-400) K/uL MPV (7.4-10.4) fL Immature Gran % (Auto) % Neut % (Auto) % Lymph % (Auto) % Pine % (Auto) % Eos % (Auto) % Baso % (Auto) % Immature Gran # (Auto) (0.00-0.02) K/uL Neut # (Auto) (1.4-6.5) K/uL Lymph # (Auto) (1.2-3.4) K/uL Pine # (Auto) (0.11-0.59) K/uL Eos # (Auto) (0-0.5) K/uL Baso # (Auto) (0-0.2) K/uL ESR 38 H (0-21) mm/hr PT (9.0-12.0) Seconds INR (0.9-1.1) APTT (21.0-31.0) Seconds PTT Ratio D-Dimer (0-500) ug/L FEU Sodium (136-145) mmol/L Potassium (3.5-5.1) mmol/L Chloride (98-107) mmol/L Carbon Dioxide (21-32) mmol/L Anion Gap (3-11) BUN (7-18) mg/dl Creatinine (0.6-1.2) mg/dl Est Cr Clr Drug Dosing ml/min Est GFR ( Amer) Est GFR (Non-Af Amer) BUN/Creatinine Ratio (10-20) Glucose (70-99) mg/dl Calcium (8.5-10.1) mg/dl Total Bilirubin (0.2-1) mg/dl Direct Bilirubin (0-0.2) mg/dl AST (15-37) U/L ALT (12-78) U/L Alkaline Phosphatase (45-117) U/L Troponin I (0-0.045) ng/ml Total Protein (6.4-8.2) gm/dl Albumin (3.4-5.0) gm/dl Lipase (73-393) U/L Imaging Data Radiologist's Impression: Radiology results as stated below per my review and the radiologist's interpretation: CT ANGIOGRAM OF THE CHEST CLINICAL HISTORY: Atypical chest pain COMPARISON STUDY: Chest x-ray dated 12/24/2018 TECHNIQUE: Following the IV administration of 117 mL of Optiray-320, CT angiogram of the thorax was performed from the thoracic inlet to the lung bases utilizing the pulmonary embolus protocol. Images are reviewed in the axial, sagittal, and coronal planes. IV contrast was administered without complication. MIP imaging was performed. A dose lowering technique was utilized adhering to the principles of ALARA. CT DOSE: 776.74 mGy.cm FINDINGS: There is mild thyromegaly No pathologically enlarged axillary mediastinal or hilar lymph nodes were vis ualized. There was no evidence of thoracic aortic dilatation. There were no pulmonary artery filling defects to indicate acute pulmonary embolism. No pleural effusions are visualized. There are mild dependent atelectatic changes. There are no airspace opacity suspicious for pneumonia. There is a solid 5 mm left upper lobe pulmonary nodule abutting the fissure. . There is a 2.5 mm right upper lobe pulmonary nodule, likely representing a granuloma with faint calcification IMPRESSION: 1. No evidence of acute pulmonary embolism 2. No evidence of pneumonia 3. No evidence of pneumothorax 4. Solid 5 mm left upper lobe pulmonary nodule. In a low risk patient, no further follow-up is indicated. In a high-risk patient, a 12 month follow-up is optional Please refer to below summary of Fleischner criteria recommendations for follow- up of incidental CT nodules (Starla Jennings, Guidelines for management of small pulmonary nodules detected on CT scans: A statement from the Fleischner Society, Radiology 237: [phone].) SOLID NODULES Solitary nodule size: <6 mm * low risk patients: no follow-up needed * high risk patients: optional CT at 12 months Solitary nodule size: 6-8 mm * low risk patients: follow-up at 6-12 months, then consider further follow-up at 18-24 months * high risk patients: initial follow-up CT at 6-12 months and then at 18-24 months if no change Solitary nodule size: >8 mm * either low or high risk patients - consider follow-up CT at 3 months, and/or CT-PET, and/or biopsy Multiple nodules size: <6 mm * low risk patients: no routine follow-up * high risk patients: optional CT at 12 months Multiple nodules size: 6-8 mm * low risk patients: follow-up at 3-6 months, then consider further follow-up at 18-24 months * high risk patients: follow-up at 3-6 months, then at 18-24 months if no change Multiple nodules size: >8 mm * low risk patients: follow-up at 3-6 months, then consider further follow-up at 18-24 months * high risk patients: follow-up at 3-6 months, then at 18-24 months if no change Note: newly detected indeterminate nodule in persons 35 years of age or older. * low risk patients: minimal or absent history of smoking and/or other known risk factors * high risk patients: history of smoking or of other known risk factors (e.g. first degree relative with lung cancer, or exposure to asbestos, radon, uranium) * if a nodule up to 8 mm is partly solid or is ground glass further follow-up is required after 24 months to exclude possible slow growing adenocarcinoma (MALLIKA) SUBSOLID NODULES Solitary pure ground-glass nodule * nodule size <6 mm - no CT follow-up required * nodule size >=6 mm - follow-up CT at 6-12 months, then every 2 years until 5 years Solitary part-solid nodule * nodule size <6 mm - no CT follow-up required * nodule size >=6 mm - follow-up CT at 3-6 months. If unchanged, and solid component remains <6 mm, then annual follow-up for 5 years Multiple subsolid nodules * nodule size <6 mm - follow-up CT at 3-6 months, consider further follow-up at 2 and 4 years if stable * nodule size >=6 mm - follow-up CT at 3-6 months, subsequent management based on the most suspicious nodule(s) Electronically signed by: Apollo Winchester M.D. 12/24/2018 6:39 PM ECG Data Attestation: I personally reviewed and interpreted this ECG as follows: Indication: + chest pain Rate (beats per minute): 68 Rhythm: + sinus rhythm ECG ST segments: no ST depression and no ST elevation ECG Findings: + Other (NM, QRS, and QTC intervals are within normal limits) Blood Pressure Blood Pressure Findings: Elevated blood pressure Blood Pressure Disposition: further management by hospitalist SEEMA Narrative 1601: Past medical records reviewed. The patient was seen on December 24 at 7:19am. The patient had blood work done. CBC, BMP, hepatic, and lipase were all within normal limits. The patient's urine, chest x-ray, and CT of the abdomen and pelvis were negative. 1611: The patient was evaluated in room C05. A complete history and physical exam was performed. 1740: Upon reevaluation, the patient's vital signs were stable. Her labs showed an elevated troponin of 0.218. The patient reports being pain free after receiving 1mg of Dilaudid. The patient is resting comfortably. She will receieve heparin for an N-STEMI. I discussed findings and results with the patient. She verbalized agreement of the treatment plan. I spoke with Dr. Siddiqi of the [facility]. The patient will be evaluated for further management and care. Impression & Plan Non-ST elevated myocardial infarction (non-STEMI) Critical Care Time Critical Care Time: Yes Total Critical Care Time: 55 I have personally spent 55 minutes of critical care time in the direct management of this patient. This includes bedside care, interpretation of diagnostic studies, and testing, discussion with consultants, patient, and family members, and other required patient management activities. This 55 minutes is in excess of all separately billable procedures. Discharge Plan Visit Data *Final* Discharge Date/Time: 12/24/18 19:47 Chief Complaint: Rib Injury/Pain Stated Complaint: RIB PAIN BACK PAIN ED Provider: Rod Alcaraz Discharge Problem: Non-ST elevated myocardial infarction (non-STEMI) Patient Disposition: Admitted As Inpatient Discharge Instructions Interventions: ED Discharge Assessment Last Done: 12/24/18 19:47 The scribe's documentation has been prepared under my direction and personally reviewed by me in its entirety. I confirm that the note above accurately reflects all work, treatment, procedures, and medical decision making performed by me.
[2018-12-25] MEDS ORDERED: TRAMADOL HCL 50 MG TABLET PO PRN (04:40)
[2018-12-25] MEDS: HYDROmorphone INJ 0.5 MG/0.5 ML SYR IV PRN ×3 (05:13→19:45)
[2018-12-25] MEDS: SODIUM CHLORIDE 0.9% 1000ML 1,000 ML IV SCH ×2 (05:14→14:21)
[2018-12-25] MEDS: ACETAMINOPHEN 1,000 MG/100 ML VIAL IV SCH ×3 (06:17→22:32)
[2018-12-25] MEDS: LEVOTHYROXINE SODIUM 100 MCG TABLET PO SCH (06:18)
[2018-12-25 07:04] LABS: Chol HDL Ratio 6; Cholesterol 206 mg/dl (0-200); HDL Cholesterol 36 mg/dl; LDL Cholesterol Calculated 109 mg/dl; Triglycerides 303 mg/dl (0-150); VLDL Cholesterol 61 mg/dl
[2018-12-25] MEDS ORDERED: PERFLUTREN LIPID MICROSPHERE (DEFINITY) IV ONE (08:10)
[2018-12-25] MEDS: PANTOprazole 40 MG in SYRINGE 0 ML IV SCH (08:16)
[2018-12-25] MEDS: DULOXETINE HCL 60 MG CAP PO SCH (08:17)
[2018-12-25] MEDS: OMEGA-3 (PURIFIED FISH OIL) 1 GM CAP PO SCH (08:22)
[2018-12-25] MEDS: MONTELUKAST SODIUM 10 MG TABLET PO SCH (08:22)
--- NOTE | 2018-12-25 10:57 | Gastrointestinal Consultation ---
Date of Consultation December 25, 2018 Assessment & Plan (1) GERD (gastroesophageal reflux disease): (2) Chest pain: Her pain is unchanged by eating though it is related to nausea. Because cardiac causes of pain and been ruled out we are considering esophagitis, gastritis, duodenitis (at risk for these due to doxycycline and NSAID use) also considering ulcer disease. Present on Admission?: Yes Supervising Physician Co-Signing Physician Notes I performed a history and physical examination of the patient, including specifically on physical exam - soft, nontender abdomen. I have discussed the patient's management with Tami. Please refer to the nurse practitioner's note for the documented findings and plan of care. 53 yrs old female patient admitted with chest pain, Cardiac cath was normal. GI consulted for possible GERD. Plan for EGD today. History of Present Illness Reason for Consultation: persistent epigastric/RUQ pain Requesting Physician: Dr. Siddiqi Attending Physician: Aden Ferris MD History of Present Illness Ms. Claudette Baca is a 53-year-old female patient with a history of fibromyalgia, GERD, hypothyroid, hyperlipidemia, currently a smoker, also obese who presented to the hospital on 12/24/2018 for right lower chest pain. GI is consulted for noncardiac chest pain after cardiac cath yesterday was negative for any coronary artery disease. The patient tells me that she had some abdominal discomfort and mild nausea for about 1 week preceding the onset of severe right lower chest pain at 4 AM yesterday. She has been taking NSAIDs all week "a fair amount" for this pain. The pain is constant and does not change with eating she has not had any diarrhea constipation or vomiting. No melena or hematochezia. She is maintained on omeprazole 40 mg daily for reflux and has not noticed any recent reflux symptoms. She was also placed on doxycycline (by phone) by her PCP on December 11 for sore throat, cough. She is seen and examined while she is laying in bed in the PCU. Though initially asleep she was easily awakened she is awake alert oriented and able to provide a detailed history. Her is at the bedside and is supportive. She was on heparin drip which was stopped last evening. Otherwise no anticoagulants. She has been n.p.o. today. She has never undergone EGD or colonoscopy. Allergies Allergy/AdvReac Type Severity Reaction Status Date / Time amoxicillin AdvReac Intermediate nausea Verified 12/24/18 18:00 Home Medications Home Medications Medication Instructions Recorded Confirmed Type duloxetine [Cymbalta] 60 mg PO QAM 05/04/18 12/24/18 History ibuprofen [Advil] 200 - 600 mg PO DIRECTED PRN 05/04/18 12/24/18 History levothyroxine 100 mcg PO DAILYBB 05/04/18 12/24/18 History montelukast 10 mg PO QAM 05/04/18 12/24/18 History omega 8-gwf-veu-fish oil [Fish Oil] 1 cap PO QAM 05/04/18 12/24/18 History omeprazole 40 mg PO QAM 05/04/18 12/24/18 History vitamin E 400 unit PO QAM 05/04/18 12/24/18 History acetaminophen [Tylenol] 325 mg PO Q6H PRN 12/24/18 12/24/18 History cholecalciferol (vitamin D3) 2,000 unit PO QAM 12/24/18 12/24/18 History [Vitamin D3] cinnamon bark [Cinnamon] 500 mg PO QAM 12/24/18 12/24/18 History famotidine [Pepcid] 20 mg PO BID 28 Days #56 tab 12/24/18 12/24/18 Rx pantoprazole [Protonix] 40 mg PO QAM 12/24/18 12/24/18 History Patient History Medical History Tobacco use (Chronic) History of hysterectomy (Chronic) Fibromyalgia (Chronic) Anxiety (Chronic) Hypothyroidism (Chronic) GERD (gastroesophageal reflux disease) (Chronic) Leg edema (Chronic) Surgical History History of cholecystectomy (Chronic) Hx of tonsillectomy (Chronic) Family History Other Cancer Coronary heart disease Social History Preferred Language: Jamaican Communication Ability: Effective Substance Abuse Clinician Required: No Beliefs That Will Affect Care: None marital status: Current Living Situation: Family Feels Safe at Home: Yes Safety Concerns: Feels Safe At This Time Smoking Status: Current every day smoker Tobacco Type: cigarettes ; Cigarettes Per Day: 15-20 ; Hx Alcohol Use: Yes Alcohol type: beer Alcohol Intake Frequency Comment: 3-4 drinks once a month Hx Substance Use: No Review of Systems Constitutional: no fever, no chills, no sweats and no weakness Eyes: no problem reported Ear, Nose, Mouth, Throat: + ear pain and + sore throat; no change in voice and no hoarseness Respiratory: + cough Cardiovascular: + chest pain (Right lower anterior chest pain was her presenting complaint); no palpitations, no lightheadedness, no syncope and no edema Gastrointestinal: + abdominal pain (Right upper quadrant though more chest and abdomen) and + nausea; no vomiting, no constipation and no diarrhea/loose stools Musculoskeletal: + body aches (Chronic with fibromyalgia worse in the last week); no back pain Integumentary: no rash, no lesions and no change in skin color Neurologic: no unsteadiness, no falls and no numbness Psychiatric: no problem reported Hematologic / Lymphatic: no easy bleeding and no easy bruising Allergy / Immunological: + cough; no GI upset with certain foods Physical Exam Constitutional: WD/WN, vitals as above Eyes: PERRL, conjunctivae normal, anicteric sclerae ENMT: external ear and nose normal, oropharynx normal Neck: trachea midline, no thyromegaly Respiratory: normal respiratory effort, lungs clear to auscultation Cardiovascular: RRR, no murmur, no edema Gastrointestinal (Abdomen): normal bowel sounds, soft, nontender, no hepatosplenomegaly Musculoskeletal: no cyanosis or clubbing, extremities motor strength 5/5 Skin: no rashes, warm and dry Neurologic: PERRL, EOMI, accommodation nl, no face palsy, no dysarthria Psychiatric: A+Ox3, euthymic affect Lymphatic: no cervical or axillary lymphadenopathy Results & Data Vital Signs (Past 12 Hours) Vital Signs Temp Pulse Pulse Resp BP Pulse Ox 12/25/18 07:04 36.7 C 59 L 19 96/62 L 91 12/25/18 03:46 36.5 C 61 19 113/72 94 12/25/18 01:32 36.7 C 66 16 109/61 96 12/25/18 00:32 36.7 C 62 16 126/59 L 95 12/25/18 00:00 70 12/24/18 23:32 36.7 C 58 L 16 122/66 98 12/24/18 23:13 36.5 C 60 15 105/69 96
--- NOTE | 2018-12-25 11:50 | Anesthesiology Consultation ---
Date of Service December 25, 2018 Assessment & Plan (1) Encounter for pre-operative examination: Chart Review Chart Review: Acceptable Risk for Surgery and Patient NOT seen in Pre Admission Testing Consults Requested none History Surgery Operation Date: 12/24/18 19:45 Proposed Procedures p Cardiac Cath Procedure - [place] MD Operation Date: 12/25/18 16:00 Proposed Procedures p Esophagogastroduodenoscopy Dr Moses - Dann Moses MD Height/Weight Height: 5 ft 5 in Weight: 97.2 kg Allergies Allergy/AdvReac Type Severity Reaction Status Date / Time amoxicillin AdvReac Intermediate nausea Verified 12/24/18 18:00 Medications Home Medications Medication Instructions Recorded Confirmed Last Taken duloxetine [Cymbalta] 60 mg PO QAM 05/04/18 12/24/18 12/24/18 ibuprofen [Advil] 200 - 600 mg PO DIRECTED PRN 05/04/18 12/24/18 Unknown levothyroxine 100 mcg PO DAILYBB 05/04/18 12/24/18 12/24/18 montelukast 10 mg PO QAM 05/04/18 12/24/18 12/24/18 omega 4-cej-brn-fish oil [Fish Oil] 1 cap PO QAM 05/04/18 12/24/18 12/24/18 omeprazole 40 mg PO QAM 05/04/18 12/24/18 12/24/18 vitamin E 400 unit PO QAM 05/04/18 12/24/18 12/24/18 acetaminophen [Tylenol] 325 mg PO Q6H PRN 12/24/18 12/24/18 12/24/18 cholecalciferol (vitamin D3) 2,000 unit PO QAM 12/24/18 12/24/18 12/24/18 [Vitamin D3] cinnamon bark [Cinnamon] 500 mg PO QAM 12/24/18 12/24/18 12/24/18 famotidine [Pepcid] 20 mg PO BID 28 Days #56 tab 12/24/18 12/24/18 12/24/18 pantoprazole [Protonix] 40 mg PO QAM 12/24/18 12/24/18 12/24/18 Active Medications Generic Name Dose Route Start Last Admin Trade Name Freq PRN Reason Stop Dose Admin Duloxetine HCl 60 mg 12/25/18 09:00 12/25/18 08:17 Cymbalta PO 01/24/19 08:59 60 mg QAM BARBI Administration Famotidine 20 mg 12/24/18 21:00 12/24/18 22:01 Pepcid PO 01/23/19 20:59 Not Given BID BARBI Fish Oil 1 gm 12/25/18 09:00 12/25/18 08:22 [place]-3 (Purified Fish Oil) PO 01/24/19 08:59 1 gm QAM BARBI Administration Hydromorphone HCl 0.5 mg 12/25/18 04:41 12/25/18 05:13 Dilaudid IV 01/07/19 20:52 0.5 mg Q3H PRN Administration Severe Pain Acetaminophen 1,000 mg in 100 mls @ 400 mls/hr 12/24/18 22:00 12/25/18 06:45 Ofirmev IV 12/27/18 21:59 Infused Q8H BARBI Infusion Sodium Chloride 1,000 mls @ 125 mls/hr 12/24/18 20:53 12/25/18 11:17 Nss 1000ml IV 01/23/19 20:52 0 mls/hr .Q8H BARBI Infusion Pantoprazole Sodium 40 mg/ 10 mls @ 5 mls/min 12/24/18 21:00 12/25/18 08:16 Syringe IV 01/23/19 20:59 5 mls/min BID@0900,2100 BARBI Administration Ioversol 117 ml 12/24/18 18:28 12/24/18 18:28 Optiray 320 125ml IV 12/28/18 18:27 1 ml ONCE PRN Administration Interaction Checking Levothyroxine Sodium 100 mcg 12/25/18 06:30 12/25/18 06:18 Synthroid PO 01/24/19 06:29 100 mcg DAILYBB BARBI Administration Montelukast Sodium 10 mg 12/25/18 09:00 12/25/18 08:22 Singulair PO 01/24/19 08:59 10 mg QAM BARBI Administration NPO Date Last Intake of Fluids: 12/24/18 Time Last Intake of Fluids: 22:00 Date Last Intake of Solids: 12/24/18 Time Last Intake of Solids: 22:00 Past Medical History Medical History Tobacco use (Chronic) History of hysterectomy (Chronic) Fibromyalgia (Chronic) Anxiety (Chronic) Hypothyroidism (Chronic) GERD (gastroesophageal reflux disease) (Chronic) Leg edema (Chronic) Past Family History Family History Other Cancer Coronary heart disease Past Surgical History Surgical History History of cholecystectomy (Chronic) Hx of tonsillectomy (Chronic) Social History Smoking Status: Current every day smoker tobacco type: cigarettes Smoking cigarettes per day: 15-20 Hx Alcohol Use: Yes Alcohol type: beer alcohol intake frequency: other Alcohol Intake Frequency Comment: about a 6 pack of beer a week Hx Substance Use: No Physical Exam Vital Signs Last Vital Signs Temp 36.6 C 12/25/18 11:36 Pulse 68 12/25/18 11:36 Resp 18 12/25/18 11:36 BP 125/81 12/25/18 11:36 Pulse Ox 93 12/25/18 11:36 Testing Laboratory Results 12/24/18 16:44 12/24/18 16:44 PT 9.8 Seconds (9.0-12.0) 12/24/18 16:44 INR 1.0 (0.9-1.1) 12/24/18 16:44 APTT 24.8 Seconds (21.0-31.0) 12/24/18 16:44
[2018-12-25] MEDS ORDERED: ATROPINE SULFATE 0.1 MG/ML 10ML SYR IV PRN (11:55)
[2018-12-25] MEDS ORDERED: ePHEDrine sulfate 50 MG/ML AMP IV PRN (11:55)
[2018-12-25] MEDS ORDERED: PROPOFOL IV EMULSION 10 MG/ML 20 ML VIAL IV ONE (11:56)
[2018-12-25] MEDS ORDERED: ONDANSETRON INJ 2 MG/ML 2 ML VIAL ONE (11:56)
[2018-12-25] MEDS ORDERED: LIDOCAINE HCL 2% 2 ML VIAL/AMP(20MG/ML) INFIL ONE (11:56)
--- NOTE | 2018-12-25 12:11 | GI REPORT ---
Patient Name: Claudette Baca Procedure Date: 12/25/2018 11:40 AM Date of : 1965 Admit Type: Inpatient Age: 53 Gender: Female Attending MD: Dann Moses MD Procedure: Upper GI endoscopy Providers: Dann Moses MD Referring MD: Aden Ferris Md Indications: Unexplained chest pain, Nausea Medicines: Propofol per Anesthesia Complications: No immediate complications. Estimated Blood Loss: Estimated blood loss: none. Procedure: Pre-Anesthesia Assessment: - Prior to the procedure, a History and Physical was performed, and patient medications, allergies and sensitivities were reviewed. The patient's tolerance of previous anesthesia was reviewed. - The risks and benefits of the procedure and the sedation options and risks were discussed with the patient. All questions were answered and informed consent was obtained. - Patient identification and proposed procedure were verified prior to the procedure by the physician and the nurse. The procedure was verified in the procedure room. - Pre-procedure physical examination revealed no contraindications to sedation. After obtaining informed consent, the endoscope was passed under direct vision. Throughout the procedure, the patient's blood pressure, pulse, and oxygen saturations were monitored continuously. The Endoscope was introduced through the mouth, and advanced to the second part of duodenum. The upper GI endoscopy was accomplished without difficulty. The patient tolerated the procedure well. Findings: The examined esophagus was normal. The Z-line was regular and was found 38 cm from the incisors. The gastroesophageal flap valve was visualized endoscopically and classified as Hill Grade I (prominent fold, tight to endoscope). Mildly erythematous mucosa was found in the gastric antrum. Biopsies were taken with a cold forceps for Helicobacter pylori testing. Verification of patient identification for the specimen was done by the physician and nurse using the patient's name and date. The duodenal bulb and second portion of the duodenum were normal. Biopsies were taken with a cold forceps for histology. Impression: - No significant findings to explain the patient's symptoms. - Normal esophagus. - Z-line regular, 38 cm from the incisors. Gastroesophageal flap valve classified as Hill Grade I (prominent fold, tight to endoscope). - Erythematous mucosa in the antrum. Biopsied. - Normal duodenal bulb and second portion of the duodenum. Biopsied. Recommendation: - [facility]. - Await pathology results. - Consider Manometry as outpatient. - Trial of PPI. - Recall GI if needed. Dann Moses MD 12/25/2018 12:11:06 PM This report has been signed electronically. Note Initiated On: 12/25/2018 11:40 AM Number of Addenda: 0 I attest to the content of the Intraoperative Record and orders documented therein, exceptions below {[id number]}
[2018-12-25 13:49] LABS: BUN Creatinine Ratio 15.3 (10-20); Calcium 8.7 mg/dl (8.5-10.1); Creatinine Clr Calc Pharmacy 109.5 ml/min; Est GFR (African American) 114.7; Potassium 3.7 mmol/L (3.5-5.1)
--- NOTE | 2018-12-25 14:43 | Anesthesiology Progress Note ---
Date of Service December 25, 2018 Anesthesia Post Procedure Vital Signs Vital Signs: Temp Pulse Pulse Pulse Pulse Resp BP 12/25/18 12:50 36.7 C 71 18 12/25/18 12:41 71 18 12/25/18 12:24 70 18 12/25/18 12:09 36.6 C 73 18 12/25/18 11:36 36.6 C 68 18 12/25/18 07:04 36.7 C 59 L 19 12/25/18 03:46 36.5 C 61 19 12/25/18 01:32 36.7 C 66 16 12/25/18 00:32 36.7 C 62 16 12/25/18 00:00 70 12/24/18 23:32 36.7 C 58 L 16 12/24/18 23:13 36.5 C 60 15 12/24/18 22:32 36.5 C 68 14 12/24/18 22:02 36.5 C 78 14 12/24/18 21:32 66 12 12/24/18 21:17 36.5 C 70 16 12/24/18 21:02 36.7 C 73 16 12/24/18 20:47 36.7 C 72 16 12/24/18 20:25 36.7 C 72 18 12/24/18 19:47 79 14 143/79 H 12/24/18 19:28 75 19 137/86 12/24/18 19:00 71 22 152/63 H 12/24/18 18:30 81 17 147/80 H 12/24/18 18:00 71 13 131/88 12/24/18 17:50 76 14 12/24/18 17:40 70 12 12/24/18 17:31 72 13 12/24/18 17:30 73 15 133/91 12/24/18 17:20 69 18 12/24/18 17:10 68 13 12/24/18 17:05 76 20 143/83 H 12/24/18 17:00 72 12 12/24/18 16:58 74 14 12/24/18 15:54 36.8 C 91 H 20 196/95 H BP Pulse Ox 12/25/18 12:50 122/78 92 12/25/18 12:41 134/72 94 12/25/18 12:24 139/84 93 12/25/18 12:09 132/97 93 11/08/19 11:36 125/81 93 12/25/18 07:04 96/62 L 91 12/25/18 03:46 113/72 94 12/25/18 01:32 109/61 96 12/25/18 00:32 126/59 L 95 12/25/18 00:00 12/24/18 23:32 122/66 98 12/24/18 23:13 105/69 96 12/24/18 22:32 133/65 94 12/24/18 22:02 105/71 92 12/24/18 21:32 133/83 92 12/24/18 21:17 130/82 95 12/24/18 21:02 132/84 92 12/24/18 20:47 152/87 H 94 12/24/18 20:25 152/87 H 94 12/24/18 19:47 95 12/24/18 19:28 98 12/24/18 19:00 97 12/24/18 18:30 96 12/24/18 18:00 100 12/24/18 17:50 12/24/18 17:40 97 12/24/18 17:31 92 12/24/18 17:30 91 12/24/18 17:20 91 12/24/18 17:10 94 12/24/18 17:05 93 12/24/18 17:00 97 12/24/18 16:58 96 12/24/18 15:54 95 Pain Intensity Chest: Pain Intensity: 7 Transfer of Care Handoff Completed per policy Notes Mental Status: alert / awake / arousable Patient Amnestic to Procedure: Yes Nausea / Vomiting: adequately controlled Pain: adequately controlled Airway Patency, RR, SpO2: stable & adequate BP & HR: stable & adequate Hydration State: stable & adequate Anesthetic Complications: no major complications apparent and Pt Satisfied with anesthetic care
[2018-12-25] MEDS ORDERED: MoRPHine SULFATE 2 MG/ML CARP IV PRN (16:40)
--- NOTE | 2018-12-25 17:45 | XRay Report ---
XR ribs RT min 2V CLINICAL HISTORY: 53 years-old Female presenting with right anterior rib pain, concern for fracture, no trauma. TECHNIQUE: Frontal and oblique views of the right ribs were obtained. COMPARISON: Chest x-ray from yesterday. FINDINGS: No displaced right rib fracture. Right shoulder grossly normal. Visualized portion of the lungs and p leural spaces clear. Cholecystectomy clips noted. No free air under the right hemidiaphragm. IMPRESSION: No radiographic evidence of a right rib fracture. Electronically signed by: Pablo Vick M.D. 12/25/2018 5:44 PM
--- NOTE | 2018-12-25 17:51 | Hospitalist Progress Note ---
Date of Service December 25, 2018 Assessment & Plan (1) Chest pain: Right-sided constant aching chest pain Unclear etiology DD: Pleuritic, musculoskeletal in origin, fibromyalgia ACS ruled out --S/P Cardiac Cath:Angiographically normal coronary arteries. Normal intracardiac filling pressure --S/P EGD:No significant findings to explain the patient's symptoms. Normal esophagus. Z-line regular, 38 cm from the incisors. Gastroesophageal flap valve classified as Hill Grade I (prominent fold, tight to endoscope). Erythematous mucosa in the antrum. Biopsied. Normal duodenal bulb and second portion of the duodenum. Biopsied. --ECHO: Ejection fraction 60 to 65%. There is moderate concentric LVH. There is mild tricuspid regurgitation. Doppler findings do not suggest pulmonary hypertension. --CT ABD:No acute process in the abdomen or pelvis. Stable left renal cyst. --Rib X ray:No radiographic evidence of a right rib fracture. --Continue PPI --Continue incentive spirometer Elevated troponin Unclear etiology ACS ruled out Elevated d-dimer Left upper lobe pulmonary nodule --CTA:No evidence of acute pulmonary embolism. No evidence of pneumonia. No evidence of pneumothorax. Solid 5 mm left upper lobe pulmonary nodule. In a low risk patient, no further follow-up is indicated. In a high-risk patient, a 12 month follow-up is optional --Venous Doppler:No evidence of lower extremity DVT. Given history of smoking, patient will need repeat imaging in 1 year Hypertension Blood pressure stable Given LVH on echo, will start on low-dose amlodipine Monitor blood pressure Tobacco use disorder Counseled to quit smoking GERD continue PPI Hypothyroidism continue Levothyroxine Fibromyalgia continue Cymbalta DVT Px: Heparin SQ CODE STATUS Full code Disposition Expected discharge home when stable Subjective Patient is seen and examined at bedside Complains of persistent aching right-sided chest pain States feeling tired Has dry cough, attributes to recent URI Offers no other complaints Family at bedside Review of Systems Review of Systems: All systems reviewed & are unremarkable except as noted in HPI & below Physical Exam Physical Exam: Physical Exam: Vitals signs as noted above General Appearance:Obese, no apparent distress Head: normocephalic, Atraumatic Eyes: normal inspection, EOMI Neck: supple, Trachea midline Respiratory/Chest: Normal breath sounds, CTA, no chest tenderness or rash Cardiovascular: S1, S2, No murmur Abdomen/GI:Soft, Non tender, Bowel sounds present Extremities/Musculoskelatal:normal inspection, no edema Neurologic/Psych:AAOX3, grossly no focal neurological deficits Skin: normal color, warm Results & Data Vital Signs (Past 12 Hours) Vital Signs Temp Pulse Pulse Resp BP Pulse Ox 12/25/18 15:11 36.6 C 82 18 132/81 92 12/25/18 12:50 36.7 C 71 18 122/78 92 12/25/18 12:41 71 18 134/72 94 12/25/18 12:24 70 18 139/84 93 12/25/18 12:09 36.6 C 73 18 132/97 93 12/25/18 11:36 36.6 C 68 18 125/81 93 12/25/18 07:04 36.7 C 59 L 19 96/62 L 91 Laboratory Results [facility] 12/25/18 12:59 Sodium 142 Potassium 3.7 Chloride 112 H Carbon Dioxide 26 BUN 10 Creatinine 0.67 Glucose 86 Calcium 8.7 Cardiac Enzymes 12/24/18 12/25/18 Range/Units 22:47 06:12 Troponin I 0.223 H* 0.220 H* (0-0.045) ng/ml
[2018-12-25] MEDS ORDERED: LACTULOSE SYRUP 30 GM/45 ML UDP PO STA (19:40)
[2018-12-25] MEDS ORDERED: POLYETHYLENE (MIRALAX) 17 GM PACK PO STA (19:40)
[2018-12-25] MEDS ORDERED: DOCUSATE SODIUM/SENNA 50/8.6MG TAB PO SCH (19:40)
[2018-12-25] MEDS: HEPARIN SOD 5,000 UNIT/0.5 ML VIAL SQ SCH (20:55)
[2018-12-25] MEDS ORDERED: OXYCODONE HCL IR 5 MG TAB (IMMEDIATE RELEASE) PO PRN (22:48)
[2018-12-25 23:28] LABS: Albumin Level 3.1 gm/dl (3.4-5.0); BUN Creatinine Ratio 13.3 (10-20); Calcium 9.1 mg/dl (8.5-10.1); Creatinine Clr Calc Pharmacy 86.3 ml/min; Est GFR (African American) 89.4; Est GFR (Non-African American) 77.1; Potassium 3.5 mmol/L (3.5-5.1)
[2018-12-25 23:39] LABS: Albumin Globulin Ratio 0.9 (0.9-2); Bilirubin,Total 0.4 mg/dl (0.2-1); Globulin 3.5 gm/dl (2.5-4.0); Total Protein 6.6 gm/dl (6.4-8.2); Troponin I 0.221 ng/ml (0-0.045)
[2018-12-25] MEDS ORDERED: NITROGLYCERIN SL 0.4 MG/TAB TAB SL PRN (23:43)
[2018-12-25] MEDS ORDERED: AMLODIPINE BESYLATE 5 MG TAB PO ONE (23:45)
[2018-12-26] MEDS ORDERED: CALCIUM CARBONATE 500 MG CHEWABLE TAB PO STA (02:43)
[2018-12-26] MEDS ORDERED: LACTULOSE SYRUP 20 GM/30 ML UDC PO STA (02:44)
[2018-12-26 03:15] LABS: Basophils # (auto) 0.01 K/uL (0-0.2); Basophils % (auto) 0.2 %; Eosinophils % (auto) 1.7 %; Hematocrit (blood only) 35.3 % (37-47); Hemoglobin 12.1 g/dL (12.0-16.0); Immature Granulocytes # (auto) 0.01 K/uL (0.00-0.02); Immature Granulocytes % (auto) 0.2 %; Lymphocytes # (auto) 2.44 K/uL (1.2-3.4); Lymphocytes % (auto) 41.1 %; Mean Corpuscular Hemoglobin 30.8 pg (25-34); Mean Corpuscular Hgb Conc 34.3 g/dL (32-36); Mean Corpuscular Volume 89.8 fL (80-100); Mean Platelet Volume 9.6 fL (7.4-10.4); Monocytes # (auto) 0.36 K/uL (0.11-0.59); Monocytes % (auto) 6.1 %; Neutrophils # (auto) 3.01 K/uL (1.4-6.5); Neutrophils % (auto) 50.7 %; Platelet Count 151 K/uL (130-400); RDW Coefficient of Variation 12.6 % (11.5-14.5); RDW Standard Deviation 41.3 fL (36.4-46.3); Red Blood Count 3.93 M/uL (4.2-5.4); White Blood Count 5.93 K/uL (4.8-10.8)
[2018-12-26 03:26] LABS: Partial Thromboplastin Ratio 0.9; Partial Thromboplastin Time 25.6 Seconds (21.0-31.0)
[2018-12-26 03:33] LABS: BUN Creatinine Ratio 14.9 (10-20); Calcium 9.3 mg/dl (8.5-10.1); Creatinine Clr Calc Pharmacy 112.8 ml/min; Est GFR (African American) 115.8; Est GFR (Non-African American) 99.9; Potassium 3.6 mmol/L (3.5-5.1)
[2018-12-26 03:47] LABS: Troponin I 0.212 ng/ml (0-0.045)
[2018-12-26] MEDS ORDERED: METHYLNALTREXONE BROMIDE 12 MG/0.6 ML VIAL SQ STA (05:20)
[2018-12-26] MEDS ORDERED: KETOROLAC TROMETHAMINE 15 MG/ML VIAL IV ONE (05:34)
[2018-12-26] MEDS ORDERED: PROMETHAZINE HCL 12.5 MG in SODIUM CHLORIDE 0.9% 50 ML IV PRN (05:36)
[2018-12-26] MEDS ORDERED: LACTATED RINGER'S 1,000 ML IV ONE (05:41)
[2018-12-26] MEDS ORDERED: PROMETHAZINE HCL 12.5 MG in SODIUM CHLORIDE 0.9% 50 ML IV STA (05:50)
[2018-12-26] MEDS ORDERED: IOVERSOL 100ml IV PRN (06:21)
[2018-12-26] MEDS ORDERED: BISACODYL 10 MG SUPP PR STA (06:32)
--- NOTE | 2018-12-26 06:32 | XRay Report ---
XR chest 1V portable CLINICAL HISTORY: Hypoxia COMPARISON STUDY: 06/17/2015 FINDINGS: The heart is borderline enlarged. There is no failure. There is no focal pulmonary consolid ation. There are no pleural effusions. There is no pneumothorax.[Slight interstitial prominence, like ly relates to technical factors given the patient's body habitus. IMPRESSION: No active disease in the chest. Electronically signed by: Apollo Winchester M.D. 12/26/2018 6:30 AM
[2018-12-26] MEDS: ACETAMINOPHEN 1,000 MG/100 ML VIAL IV SCH ×2 (06:37→12:58)
--- NOTE | 2018-12-26 08:01 | CT Scan Report ---
CT abd pelvis IV con only CLINICAL HISTORY: worsening abd pain COMPARISON STUDY: 12/24/2018 TECHNIQUE: The patient was scanned in a dynamic helical fashion during intravenous administration of 93 cc of Optiray 320 A dose lowering technique was utilized adhering to the principles of ALARA. CT DOSE: 1428.46 mGy.cm FINDINGS: Lower chest: The heart is normal in size and configuration, without pericardial effusion. The lung ba ses and pleural spaces are clear. Liver: There is a stable 9 mm hypodensity within the right hepatic lobe. The portal veins and hepatic veins appear patent. There is very slight central biliary ductal prominence likely secondary to prio r cholecystectomy Gallbladder: Surgically absent Spleen: Mildly enlarged measuring 13.3 cm Pancreas: Unremarkable. Adrenal glands: Unremarkable. Kidneys: No solid renal masses are visualized. There are 2 left renal cysts, the largest of which alexis sures 2.5 cm. There is no hydronephrosis. Bowel: There are no transition zones to indicate bowel obstruction. There are multiple colonic air-fl uid levels, a nonspecific finding which could indicate an enteritis or diarrhea state. There is no ev idence of acute diverticulitis. The appendix is surgically absent. Peritoneum: There is no intraperitoneal free air or abdominal ascites. Vasculature: The abdominal aorta is normal in course and caliber. Adenopathy: None. Pelvic viscera: The uterus is surgically absent Skeletal structures: No destructive osseous lesions are seen. IMPRESSION: 1. Surgically absent gallbladder, appendix, and uterus 2. Mild splenomegaly 3. No evidence of bowel obstruction. No evidence of free air 4. No evidence of acute diverticulitis 5. Nonspecific fluid-filled colonic loops. This could indicate a diarrheal state or enteritis. Electronically signed by: Apollo Winchester M.D. 12/26/2018 8:00 AM
[2018-12-26] MEDS: LEVOTHYROXINE SODIUM 100 MCG TABLET PO SCH (08:47)
[2018-12-26] MEDS: DULOXETINE HCL 60 MG CAP PO SCH (08:47)
[2018-12-26] MEDS: OMEGA-3 (PURIFIED FISH OIL) 1 GM CAP PO SCH (08:48)
[2018-12-26] MEDS: MONTELUKAST SODIUM 10 MG TABLET PO SCH (08:48)
[2018-12-26] MEDS: HEPARIN SOD 5,000 UNIT/0.5 ML VIAL SQ SCH (08:48)
[2018-12-26] MEDS ORDERED: PANTOprazole 40 MG TAB PO SCH (09:00)
[2018-12-26] MEDS ORDERED: AMLODIPINE BESYLATE 5 MG TAB PO SCH (09:00)
--- NOTE | 2018-12-26 13:05 | Anesthesiology Progress Note ---
Date of Service December 26, 2018 Anesthesia Post Procedure Vital Signs Vital Signs: Temp Pulse Pulse Pulse Resp BP Pulse Ox 12/26/18 11:25 36.4 C L 69 18 122/78 94 12/26/18 07:34 36.5 C 62 18 154/87 H 94 12/26/18 04:03 36.6 C 77 19 162/79 H 96 12/25/18 23:06 36.6 C 68 18 157/87 H 89 L 12/25/18 19:26 36.3 C L 79 18 149/89 H 94 12/25/18 15:11 36.6 C 82 18 132/81 92 Pain Intensity Chest: Pain Intensity: 8 Notes Mental Status: alert / awake / arousable and see notes below (Pt sleeping comfortably during visit) Nausea / Vomiting: adequately controlled Pain: adequately controlled Airway Patency, RR, SpO2: stable & adequate BP & HR: stable & adequate Hydration State: stable & adequate Anesthetic Complications: no major complications apparent
[2018-12-26] MEDS ORDERED: PROMETHAZINE HCL 6.25 MG in SODIUM CHLORIDE 0.9% 50 ML IV PRN (13:45)
--- NOTE | 2018-12-26 13:50 | Hospitalist Progress Note ---
Date of Service December 26, 2018 Assessment & Plan (1) Chest pain: Right-sided constant aching chest pain Unclear etiology DD: Pleuritic, musculoskeletal in origin, fibromyalgia ACS ruled out --S/P Cardiac Cath:Angiographically normal coronary arteries. Normal intracardiac filling pressure --S/P EGD:No significant findings to explain the patient's symptoms. Normal esophagus. Z-line regular, 38 cm from the incisors. Gastroesophageal flap valve classified as Hill Grade I (prominent fold, tight to endoscope). Erythematous mucosa in the antrum. Biopsied. Normal duodenal bulb and second portion of the duodenum. Biopsied. --ECHO: Ejection fraction 60 to 65%. There is moderate concentric LVH. There is mild tricuspid regurgitation. Doppler findings do not suggest pulmonary hypertension. --CT ABD:No acute process in the abdomen or pelvis. Stable left renal cyst. --Rib X ray:No radiographic evidence of a right rib fracture. --Continue PPI --Continue incentive spirometer --Minimize Narcotic use Elevated troponin Unclear etiology ACS ruled out Elevated d-dimer Left upper lobe pulmonary nodule --CTA:No evidence of acute pulmonary embolism. No evidence of pneumonia. No evidence of pneumothorax. Solid 5 mm left upper lobe pulmonary nodule. In a low risk patient, no further follow-up is indicated. In a high-risk patient, a 12 month follow-up is optional --Venous Doppler:No evidence of lower extremity DVT. --Given history of smoking, patient will need repeat imaging in 1 year for pulmonary Nodule Hypertension Blood pressure better today Given LVH on echo, started on low-dose amlodipine Continue Amlodipine 5mg daily Monitor blood pressure Tobacco use disorder Counseled to quit smoking GERD continue PPI Hypothyroidism continue Levothyroxine Fibromyalgia continue Cymbalta DVT Px: Heparin SQ CODE STATUS Full code Disposition Plan to discharge home when stable Subjective Patient is seen and examined at bedside No new complaints today Mild aching discomfort on right side of chest Drowsy this morning Offers no other complaints Family at bedside Review of Systems Review of Systems: All systems reviewed & are unremarkable except as noted in HPI & below Physical Exam Physical Exam: Physical Exam: Vitals signs as noted above General Appearance:Obese, no apparent distress Head: normocephalic, Atraumatic Eyes: normal inspection, EOMI Neck: supple, Trachea midline Respiratory/Chest: Normal breath sounds, CTA, no chest tenderness or rash Cardiovascular: S1, S2, No murmur Abdomen/GI:Soft, Non tender, Bowel sounds present Extremities/Musculoskelatal:normal inspection, no edema Neurologic/Psych:AAOX3, grossly no focal neurological deficits Skin: normal color, warm Results & Data Vital Signs (Past 12 Hours) Vital Signs Temp Pulse Pulse Resp BP Pulse Ox 12/26/18 11:25 36.4 C L 69 18 122/78 94 12/26/18 07:34 36.5 C 62 18 154/87 H 94 12/26/18 04:03 36.6 C 77 19 162/79 H 96 Laboratory Results Short CBC 12/26/18 Range/Units 02:55 WBC 5.93 (4.8-10.8) K/uL Hgb 12.1 (12.0-16.0) g/dL Hct 35.3 L (37-47) % Plt Count 151 (130-400) K/uL BMP 12/25/18 12/25/18 12/26/18 12:59 22:59 02:55 Sodium 142 140 140 Potassium 3.7 3.5 3.6 Chloride 112 H 107 109 H Carbon Dioxide 26 27 28 BUN 10 11 10 Creatinine 0.67 0.85 0.65 Glucose 86 115 H 106 H Calcium 8.7 9.1 9.3 Cardiac Enzymes 12/25/18 12/26/18 Range/Units 22:59 02:55 Troponin I 0.221 H* 0.212 H* (0-0.045) ng/ml Liver Function 12/25/18 Range/Units 22:59 Total Bilirubin 0.4 (0.2-1) mg/dl AST 59 H (15-37) U/L ALT 76 (12-78) U/L Alkaline Phosphatase 91 (45-117) U/L Albumin 3.1 L (3.4-5.0) gm/dl
--- NOTE | 2018-12-26 16:02 | Discharge Summary ---
Date of Service December 26, 2018 Admission HPI Per Admitting Provider 53 year old female, history of COPD, Obesity, HLD, GERD, and other problems noted below presenting with chest pain since Friday. Patient reports sudden onset epigastric/RUQ pain- pressure- starting last Friday. Pain is progressive, worse with exertion, associated with shortness of breath and nausea. This AM, patient presented to the ED, had a CT abd/pelvis and was discharged home. She returns to the ER with persistent pain. EKG no signs of acute ischemia, but trop is 0.2. D dimer elevated at 2020, CT chest no PE. On exam, patient still reports 8/10 pain epigastric/RUQ with some nausea. Denies other symptoms. Primary Care Provider: Kg Martines MD Admission Exam Per Admitting Provider Physical Exam Physical Exam: General- oriented x 3, not in distress, speaks in sentences with no effort or accessory muscle use Head- atraumatic Eyes- PERRL, EOMI, anicteric ENT- oropharynx clear Neck- supple, no JVD, no adenopathy, no thyromegaly; carotids +2/2, no bruits appreciated Lungs- clear to auscultation bilaterally, no rales/wheezes Heart- normal rate, regular rhythm; no murmur, no gallop, no rub appreciated Abdomen- normal bowel sounds, nondistended, soft, nontender, no masses or hepatosplenomegaly Extremities- no pretibial edema, no calf tenderness; peripheral pulses intact Neuro- alert, oriented x 3; CN 2-12 grossly intact; motor 5/5 bilaterally;sensation 100% on all extremities; no other gross focal neurologic deficits Skin- warm & dry Principal Diagnosis Chest pain Hypertension Discharge Data Allergies Allergy/AdvReac Type Severity Reaction Status Date / Time amoxicillin AdvReac Intermediate nausea Verified 12/24/18 18:00 Consultations 12/24/18 17:43 ED Decision to Admit Stat 12/24/18 20:43 Consult Gastroenterology Routine Procedures Performed Operation Date: 12/24/18 19:45 Actual Procedures p Cath, Left with Cors and Vent - [place] MD s Cineradiography w/Routine Exam - [place] MD Operation Date: 12/25/18 16:00 Actual Procedures p EGD Biopsy Cytology - Dann Moses MD CT ABD: 1. Surgically absent gallbladder, appendix, and uterus 2. Mild splenomegaly 3. No evidence of bowel obstruction. No evidence of free air 4. No evidence of acute diverticulitis 5. Nonspecific fluid-filled colonic loops. This could indicate a diarrheal state or enteritis. Venous Doppler: No evidence of lower extremity DVT. Chest CTA: 1. No evidence of acute pulmonary embolism 2. No evidence of pneumonia 3. No evidence of pneumothorax 4. Solid 5 mm left upper lobe pulmonary nodule. In a low risk patient, no further follow-up is indicated. In a high-risk patient, a 12 month follow-up is optional EGD: Impression: - No significant findings to explain the patient's symptoms. - Normal esophagus. - Z-line regular, 38 cm from the incisors. Gastroesophageal flap valve classified as Hill Grade I (prominent fold, tight to endoscope). - Erythematous mucosa in the antrum. Biopsied. - Normal duodenal bulb and second portion of the duodenum. Biopsied. Recommendation: - [facility]. - Await pathology results. - Consider Manometry as outpatient. - Trial of PPI. - Recall GI if needed. Cardiac Cath: Summary: 1. Angiographically normal coronary arteries 2. Normal intracardiac filling pressure Recommendations: Trend troponin until peak, echocardiogram in the a.m. Can discontinue heparin. Continued ASCVD risk factor modification Ordered Studies 12/24/18 17:58 CT angio chest PE protocol Stat 12/24/18 19:45 CL Cath Imgs for PACS use only Stat 12/24/18 21:15 US venous doppler LE BI Stat 12/26/18 05:34 CT abd pelvis IV con only Urgent Hospital Course (1) Chest pain: Right-sided constant aching chest pain Unclear etiology DD: Pleuritic, musculoskeletal in origin, fibromyalgia ACS ruled out --S/P Cardiac Cath:Angiographically normal coronary arteries. Normal intracardiac filling pressure --S/P EGD:No significant findings to explain the patient's symptoms. Normal esophagus. Z-line regular, 38 cm from the incisors. Gastroesophageal flap valve classified as Hill Grade I (prominent fold, tight to endoscope). Erythematous mucosa in the antrum. Biopsied. Normal duodenal bulb and second portion of the duodenum. Biopsied. --ECHO: Ejection fraction 60 to 65%. There is moderate concentric LVH. There is mild tricuspid regurgitation. Doppler findings do not suggest pulmonary hypertension. --CT ABD:No acute process in the abdomen or pelvis. Stable left renal cyst. --Rib X ray:No radiographic evidence of a right rib fracture. --Continue PPI --Continue incentive spirometer --Minimize Narcotic use Elevated troponin Unclear etiology ACS ruled out Elevated d-dimer Left upper lobe pulmonary nodule --CTA:No evidence of acute pulmonary embolism. No evidence of pneumonia. No evidence of pneumothorax. Solid 5 mm left upper lobe pulmonary nodule. In a low risk patient, no further follow-up is indicated. In a high-risk patient, a 12 month follow-up is optional --Venous Doppler:No evidence of lower extremity DVT. --Given history of smoking, patient will need repeat imaging in 1 year for pulmonary Nodule Hypertension Blood pressure better today Given LVH on echo, started on low-dose amlodipine Continue Amlodipine 5mg daily Monitor blood pressure Tobacco use disorder Counseled to quit smoking GERD continue PPI Hypothyroidism continue Levothyroxine Fibromyalgia continue Cymbalta DVT Px: Heparin SQ CODE STATUS Full code Disposition Plan to discharge home when stable Total Time Total Time Spent Total Time Spent (In Minutes): 38 minutes Total Time Includes: Examination of the Patient, Discharge Planning, Medication Reconciliation, Communication With Other Providers and Other Discharge Plan Discharge Items Patient Disposition: Home - Self-Care Reason For Visit: CHEST PAIN,NSTEMI Discharge Diagnosis: Chest pain Hypertension Activity: Resume your previous activity Exercise/Sports: Gradually increase as tolerated Non-emergency contact: Primary Care Provider Call non-emergency contact if: you have any medication questions, your symptoms worsen, your pain is not controlled, your pain is worsening, your pain is unusual for you, your pain is concerning for you and you have a fever Follow-up/Referrals: Kg Martines MD [Primary Care Provider] - Diet: Heart Healthy Addtl Attending Provider Instructions: Follow-up with your primary care physician Dr. Martines on December 30, 2018 at 10:45 AM Seek immediate medical attention if your symptoms reoccur or worsen Pending Studies at Discharge: No Stand-Alone Forms: My [email or web address], Smoking Cessation Medications and DC Order Prescriptions: New amlodipine [Norvasc] 5 mg Tablet 5 mg PO QAM 30 Days Qty: 30 RF: 1 Continued acetaminophen [Tylenol] 325 mg Tablet 325 mg PO Q6H PRN (Reason: Pain) RF: 0 pantoprazole [Protonix] 40 mg tablet,delayed release (DR/EC) 40 mg PO QAM Qty: 30 RF: 1 levothyroxine 100 mcg Tablet 100 mcg PO DAILYBB RF: 0 ibuprofen [Advil] 200 mg Tablet 200 - 600 mg PO DIRECTED PRN (Reason: Pain) RF: 0 vitamin E 400 unit Capsule 400 unit PO QAM RF: 0 duloxetine [Cymbalta] 60 mg Capsule,Delayed Release(Dr/Ec) 60 mg PO QAM RF: 0 omega [id number] [Fish Oil] 1,000 mg (120 mg-180 mg) Capsule 1 cap PO QAM RF: 0 montelukast 10 mg Tablet 10 mg PO QAM RF: 0 cholecalciferol (vitamin D3) [Vitamin D3] 1,000 unit Capsule 2,000 unit PO QAM RF: 0 cinnamon bark [Cinnamon] 500 mg Capsule 500 mg PO QAM RF: 0 famotidine [Pepcid] 20 mg tablet 20 mg PO BID 28 Days Qty: 56 RF: 0 Discontinued omeprazole 40 mg Capsule,Delayed Release(Dr/Ec) 40 mg PO QAM RF: 0 Discharge Orders: Discharge Order (Routine); Ordered 12/26/18 Ordered By: Aden Ferris Admission Data Admit Date/Time: 12/24/18 19:48 Attending Provider: Aden Ferris Admit Provider: mK Siddiqi Primary Care Provider: Kg Martines Other Providers: Km Siddiqi ; Angelo Reyes Other Interventions: Discharge Summary Assessment (RN) Last Done: 12/25/18 12:20 DC Date/Time DO NOT enter until pt leaves facility: 12/26/18 16:27
[2018-12-27] MEDS ORDERED: AMLODIPINE BESYLATE 5 MG TAB PO SCH (09:00)
== END 2018-12-26 16:27 | disposition home or self-care (01) | DRG 287 ==
LOC: ED 15:46 → 2S 19:47 → CC 19:47 → SUATTDRO 19:48 → 2S 19:48

== ENCOUNTER 2021-07-11 13:52 | Observation (INO) ==
[2021-07-11] MEDS ORDERED: MoRPHine SULFATE 4 MG/ML 1 ML CARP\\VIAL IV STA ×2 (14:49→21:31)
[2021-07-11] MEDS ORDERED: ONDANSETRON INJ 2 MG/ML 2 ML VIAL IV STA (14:49)
--- NOTE | 2021-07-11 15:18 | Emergency Department Note ---
Impression & Plan Acute low back pain with sciatica ED Provider Note Provider: Carlos Enrique Cheng MD DATE OF SERVICE: 07/11/2021 CHIEF COMPLAINT: Back and leg discomfort HISTORY OF PRESENT ILLNESS: Patient is a 6-year-old female history of back pain and problems presenting here today reporting increasing back pain over the last several days and her low back into the left hip and left leg region. States some stable neuropathy left greater than right in her feet. Patient denies any saddle anesthesia. She states it sometimes feels like she cannot hold her urine however. Denies any falls or new trauma. Patient denies fever. Patient denies abdominal pain but states that time she has been nauseous. Has been taking her home prescribed medications including discussion with her pain management doctors and extra dose of Cymbalta today. Was recently on steroids and this helped a little bit. Did have injections by pain management at the beginning of the month in her low back with temporarily helped for about a week. Patient states she talked with her pain management doctors and was referred here today for further evaluation. Tramadol earlier did not do much for her pain. No prior history of back surgeries reported REVIEW OF SYSTEMS: A total of 10 review of systems was obtained and negative ex cept as stated above in the HPI. PAST MEDICAL HISTORY: As noted above MEDICATIONS: Reviewed home medication SOCIAL HISTORY: lives at home with , smoker PHYSICAL EXAM: GENERAL: alert and oriented in no acute distress on stretcher Head: normocephalic and atraumatic EYES: No injection, discharge or icterus. NECK: Trachea midline. ENT: Mucous membranes pink and moist. LUNGS: Airway patent. No retractions. Breath sounds clear with good air entry bilaterally. HEART: Regular rate and rhythm. No chest wall tenderness ABDOMEN: Soft and non-tender, without guarding or rebound. BACK: Some mild lumbar midline to left SI tenderness on exam without significant skin changes noted. SKIN: Acyanotic, warm, dry, without rashes EXTREMITIES: Without swelling although reports some mild diffuse tenderness of left greater than right lower extremities. NEUROLOGICAL: No aphasia. No facial droop or slurred speech. Intact gross sensation of the lower extremities although reports a bit of tingling in the left greater than right leg. PDMP was checked without noted issue reviewing multiple small recent prescriptions. Patient's laboratory studies and imaging reviewed. Differential includes Musculoskeletal, disc herniation, fracture, metastatic disease, cord compression, discitis, sciatica, cauda equina, infection, aortic disease, renal colic, gastrointestinal, as well as other pathologies. IMPRESSION/MEDICAL DECISION MAKING: Read by pain management for further evaluation and control of back pain. No history of back surgeries. Did have epidural back injection the beginning of e month. No fevers reported. Some neuropathy which she states has waxed and waned over the past week or 2. Was seen here at that time and improved with some steroids. Tramadol at home and other medicines have not helped today. Denies any falls. Patient without significant leg swelling and lower suspicion for DVT. Will obtain lumbar MRI to look for any possible occult pathology including with contrast to exclude any abscess given she has had steroid injection recently. Basic blood work was ordered. Ordered some pain medications to help with her symptoms. Blood work here without anemia or leukocytosis. BMP and CRP are reassuring without significant laboratory elevation and I doubt a significant infection. Little bit of Ativan for completion of MRI was given. PDMP reviewed. Given a dose of dexamethasone a steroid has helped in the past. Patient is on gabapentin already. Did take extra doses of her duloxetine already. MRI report as below with some degenerative changes but no significant finding of cauda equina or abscess reported. Patient somewhat drowsy from the pain medicine but still complaining of pain. Given some Toradol IV. Patient still somewhat drowsy and complaining of fairly significant pain. Patient questions were ability to go home tonight sound function with her pain and drowsiness. Advised we could proceed with possible observation but given her drowsiness would not receive additional significant amount of narcotics. DIAGNOSIS: Low back pain with sciatic symptoms DISPOSITION: Hospitalist will evaluate Preliminary Findings Only See Final Report For Complete Findings MRI L SPINE : No acute fracture. Degenerative changes most pronounced from L3-4 through L5-S1. No significant spinal canal stenosis. Mild foraminal stenosis at L4-5 on the right, otherwise foramina are unremarkable. Unremarkable appearance of the distal cord and nerve roots. Radiologist: Edwar Schilling MD N Study ready at 21:36 and initial results transmitted at 22:02 Past Med/Surg History Medical History (Updated 07/11/21 @ 22:20 by Carlos Enrique Cheng M.D.) Anxiety Cervical radiculopathy Cervicalgia Chest wall pain Diffuse myofascial pain syndrome Fibromyalgia GERD (gastroesophageal reflux disease) Hypothyroidism Intercostal neuralgia Leg edema Lumbar radicular pain Pain in rib Right upper quadrant abdominal pain Tobacco use Weakness of left lower extremity Surgical History History of cholecystectomy History of hysterectomy Hx of tonsillectomy Family History Other Cancer Coronary heart disease Social History Smoking Status: Current every day smoker Tobacco Type: Cigarettes Cigarettes Per Day: 15-20; Hx Alcohol Use: Yes Alcohol type: beer Alcohol type Comment: special occasions Alcohol Intake Frequency Comment: 3-4 drinks once a month Hx Substance Use: No Preferred Language: Canadian Communication Ability: Effective Visual Impairment: No Limitations Hearing Ability: Normal Netting Inspector Required: No Beliefs That Will Affect Care: None marital status: Current Living Situation: Family Current Living Situation Comment: boyfriend and 2 grandsons current occupational status: unemployed current occupation: trying to get disability Feels Safe at Home: Yes Assistive Devices: None Allergies Allergies Allergy/AdvReac Type Severity Reaction Status Date / Time amoxicillin AdvReac Intermediate nausea Verified 07/11/21 16:51 Home Meds Home Medications Medication Instructions Recorded Confirmed ibuprofen 200 mg tablet (Advil) 200 - 600 mg PO DIRECTED PRN 05/04/18 07/11/21 montelukast 10 mg tablet 10 mg PO QAM 05/04/18 07/11/21 acetaminophen 325 mg tablet 325 mg PO Q6H PRN 12/24/18 07/11/21 (Tylenol) omeprazole 40 mg capsule,delayed 40 mg PO DAILY 04/14/19 07/11/21 release duloxetine 60 mg capsule,delayed 60 mg PO QAM cap 08/26/19 07/11/21 release (Cymbalta) ascorbic acid (vitamin C) 1,000 mg 1 g PO DAILY tab 01/04/20 07/11/21 tablet aspirin 81 mg chewable tablet 81 mg PO DAILY 01/04/20 07/11/21 cyanocobalamin (vitamin B-12) 100 100 mcg PO DAILY 01/04/20 07/11/21 mcg tablet fluticasone furoate 200 1 inh INHALATION DAILY 01/04/20 07/11/21 mcg-vilanterol 25 mcg/dose inhalation powder (Breo Ellipta) gabapentin 300 mg capsule 900 mg PO HS cap 01/04/20 07/11/21 glucosamine sulfate 1,000 mg tablet 1,000 mg PO BIDM 01/04/20 07/11/21 levothyroxine 112 mcg tablet 112 mcg PO DAILY 01/04/20 07/11/21 magnesium oxide 250 mg PO DAILY 01/04/20 07/11/21 mometasone 100 mcg/actuation HFA 1 puff INHALATION BID 01/04/20 07/11/21 aerosol inhaler vortioxetine 5 mg tablet 5 mg PO DAILY 05/16/21 07/11/21 (Trintellix) albuterol sulfate 90 mcg/actuation 2 inh INHALATION Q4H PRN 07/01/21 07/11/21 breath activated powder inhaler (ProAir RespiClick) omega-3 fatty acids 1,000 mg 1,000 mg PO DAILY 07/01/21 07/11/21 capsule diazepam 5 mg tablet 5 mg PO .COMPLEX PRN 07/11/21 07/11/21 Previous Rx's Medication Instructions Recorded tramadol 50 mg tablet 50 mg PO Q8H PRN #30 tab 07/04/21 Results & Data (ED) Vital Signs Vital Signs - 24 hr 07/11/21 13:59 07/11/21 16:15 07/11/21 21:50 Temperature 36.6 C Temperature Source Oral Pulse Rate 94 H Pulse Rate [Left Radial] 78 Respiratory Rate 18 20 Respiratory Effort / Characteristics Non-Labored Respiratory Depth Normal Blood Pressure 128/77 Blood Pressure [Left Arm] 142/99 H Blood Pressure Mean 94 Blood Pressure Mean [Left Arm] 113 Pulse Oximetry 97 98 95 Oxygen Delivery Method Room Air Room Air Room Air Sepsis Recent Fever Within 48 Hours No Sepsis New/Unexplained Change in Mental Status No Sepsis Action Taken by Nursing No Action Required Laboratory Data Result diagrams: 07/11/21 15:00 07/11/21 15:00 Lab Results 07/11/21 07/11/21 Range/Units 15:00 15:00 WBC 8.75 (4.8-10.8) K/uL RBC 4.49 (4.2-5.4) M/uL Hgb 14.1 (12.0-16.0) g/dL Hct 41.0 (37-47) % MCV 91.3 (80-100) fL MCH 31.4 (25-34) pg MCHC 34.4 (32-36) g/dL RDW Std Deviation 43.1 (36.4-46.3) fL RDW Coeff of Kiki 13.1 (11.5-14.5) % Plt Count 215 (130-400) K/uL MPV 10.0 (7.4-10.4) fL Immature Gran % (Auto) 0.3 % Neut % (Auto) 48.9 % Lymph % (Auto) 42.1 % Bullock % (Auto) 6.3 % Eos % (Auto) 2.1 % Baso % (Auto) 0.3 % Neut # (Auto) 4.28 (1.4-6.5) K/uL Lymph # (Auto) 3.68 H (1.2-3.4) K/uL Bullock # (Auto) 0.55 (0.11-0.59) K/uL Eos # (Auto) 0.18 (0-0.5) K/uL Baso # (Auto) 0.03 (0-0.2) K/uL Immature Gran # (Auto) 0.03 H (0.00-0.02) K/uL Sodium 139 (136-145) mmol/L Potassium 3.6 (3.5-5.1) mmol/L Chloride 103 (98-107) mmol/L Carbon Dioxide 31 (21-32) mmol/L Anion Gap 5 (3-11) BUN 14 (6-23) mg/dl Creatinine 0.61 (0.6-1.2) mg/dl Est Cr Clr Drug Dosing 122.2 ml/min Est GFR ( Amer) 115.8 ml/min Est GFR (Non-Af Amer) 99.9 ml/min BUN/Creatinine Ratio 23.0 H (10-20) Glucose 81 (70-99(Fasting)) mg/dl Calcium 10.4 H (8.5-10.1) mg/dl C-Reactive Protein < 0.50 (0-0.5) mg/dl Administered Medications Discontinued Medications Dexamethasone Sodium Phosphate (DexamethasonePf 10 Mg/Ml Vial) 6 mg IV NOW ONE Stop: 07/11/21 21:33 Last Admin: 07/11/21 21:50 Dose: 6 mg Documented by: [id number] Fentanyl Citrate (Fentanyl Citrate 100 Mcg/2 Ml Vial) 50 mcg IV NOW STA Stop: 07/11/21 17:17 Last Admin: 07/11/21 17:51 Dose: 50 mcg Documented by: [id number] Gadobutrol (Gadobutrol 65ml Vial) 11 ml IV ONCE ONE Stop: 07/11/21 21:14 Last Admin: 07/11/21 21:13 Dose: 11 ml Documented by: [id number] Ketorolac Tromethamine (Ketorolac Tromethamine 15 Mg/Ml Vial) 15 mg IV NOW STA Stop: 07/11/21 22:02 Last Admin: 07/11/21 22:09 Dose: 15 mg Documented by: [id number] Lorazepam (Lorazepam 2 Mg/1 Ml Vial) 0.5 mg IV NOW STA; Protocol Stop: 07/11/21 16:16 Last Admin: 07/11/21 20:19 Dose: 0.5 mg Documented by: [id number] Lorazepam (Lorazepam 2 Mg/1 Ml Vial) Confirm Administered Dose 2 mg .ROUTE .STK- MED ONE Stop: 07/11/21 20:15 Last Admin: 07/11/21 20:19 Dose: Not Given Documented by: [id number] Morphine Sulfate (Morphine Sulfate 4 Mg/Ml 1 Ml Carp\Vial) 4 mg IV NOW STA Stop: 07/11/21 14:50 Last Admin: 07/11/21 15:14 Dose: 4 mg Documented by: [id number] Morphine Sulfate (Morphine Sulfate 4 Mg/Ml 1 Ml Carp\Vial) 4 mg IV NOW STA Stop: 07/11/21 21:32 Last Admin: 07/11/21 21:36 Dose: 4 mg Documented by: [id number] Ondansetron HCl (Ondansetron Inj 2 Mg/Ml 2 Ml Vial) 4 mg IV NOW STA Stop: 07/11/21 14:50 Last Admin: 07/11/21 15:14 Dose: 4 mg Documented by: [id number] Discharge Plan Visit Data Chief Complaint: Leg Injury/Pain Stated Complaint: L HIP PAIN, LEG PAIN AND NUMBNESS ED Provider: Carlos Enrique Cheng Discharge Problem: Acute low back pain with sciatica Patient Disposition: Being Evaluated by Hospitalist Forms Stand Alone Forms: [facility] Prescriptions Prescriptions: No Action omeprazole 40 mg capsule,delayed release(DR/EC) 40 mg PO DAILY RF: 0 gabapentin 300 mg capsule 900 mg PO HS RF: 0 levothyroxine 112 mcg tablet 112 mcg PO DAILY RF: 0 cyanocobalamin (vitamin B-12) 100 mcg tablet 100 mcg PO DAILY RF: 0 mometasone 100 mcg/actuation HFA aerosol inhaler 1 puff inhalation BID RF: 0 aspirin 81 mg tablet,chewable 81 mg PO DAILY RF: 0 ascorbic acid (vitamin C) 1,000 mg tablet 1 g PO DAILY RF: 0 Breo Ellipta 200-25 mcg/dose blister with device 1 inh inhalation DAILY RF: 0 magnesium oxide 250 mg magnesium tablet 250 mg PO DAILY RF: 0 glucosamine sulfate 1,000 mg tablet 1,000 mg PO BIDM RF: 0 Trintellix 5 mg tablet 5 mg PO DAILY RF: 0 tramadol 50 mg tablet 50 mg PO Q8H PRN (Reason: pain) Qty: 30 RF: 0 acetaminophen [Tylenol] 325 mg Tablet 325 mg PO Q6H PRN (Reason: Pain) RF: 0 ibuprofen [Advil] 200 mg Tablet 200 - 600 mg PO DIRECTED PRN (Reason: Pain) RF: 0 montelukast 10 mg Tablet 10 mg PO QAM RF: 0 duloxetine [Cymbalta] 60 mg capsule,delayed release(DR/EC) 60 mg PO QAM RF: 0 diazepam 5 mg tablet 5 mg PO .COMPLEX PRN (Reason: NEEDED) RF: 0 omega-3 fatty acids 1,000 mg Capsule 1,000 mg PO DAILY RF: 0 ProAir RespiClick 90 mcg/actuation aerosol powdr breath activated 2 inh INHALATION Q4H PRN (Reason: Shortness Of Breath) RF: 0 Referrals Referrals: Cecilia Hurst MD [Primary Care Provider] - Discharge Problem: Acute low back pain with sciatica Qualifiers: Back pain laterality: left Sciatica laterality: sciatica of left side Qualified Code(s): M54.42 - Lumbago with sciatica, left side
[2021-07-11 15:33] LABS: Basophils # (auto) 0.03 K/uL (0-0.2); Basophils % (auto) 0.3 %; Eosinophils # (auto) 0.18 K/uL (0-0.5); Eosinophils % (auto) 2.1 %; Hemoglobin 14.1 g/dL (12.0-16.0); Immature Granulocytes # (auto) 0.03 K/uL (0.00-0.02); Immature Granulocytes % (auto) 0.3 %; Lymphocytes # (auto) 3.68 K/uL (1.2-3.4); Lymphocytes % (auto) 42.1 %; Mean Corpuscular Hemoglobin 31.4 pg (25-34); Mean Corpuscular Hgb Conc 34.4 g/dL (32-36); Mean Corpuscular Volume 91.3 fL (80-100); Monocytes # (auto) 0.55 K/uL (0.11-0.59); Monocytes % (auto) 6.3 %; Neutrophils # (auto) 4.28 K/uL (1.4-6.5); Neutrophils % (auto) 48.9 %; Platelet Count 215 K/uL (130-400); RDW Coefficient of Variation 13.1 % (11.5-14.5); RDW Standard Deviation 43.1 fL (36.4-46.3); Red Blood Count 4.49 M/uL (4.2-5.4); White Blood Count 8.75 K/uL (4.8-10.8)
[2021-07-11 16:23] LABS: Potassium 3.6 mmol/L (3.5-5.1)
[2021-07-11 16:24] LABS: Anion Gap 5 (3-11); Blood Urea Nitrogen 14 mg/dl (6-23); C Reactive Protein < 0.50 mg/dl (0-0.5); Calcium 10.4 mg/dl (8.5-10.1); Carbon Dioxide 31 mmol/L (21-32); Chloride 103 mmol/L (98-107); Creatinine Clr Calc Pharmacy 122.2 ml/min; Est GFR (African American) 115.8 ml/min; Est GFR (Non-African American) 99.9 ml/min; Glucose 81 mg/dl (70-99(Fasting)); Sodium 139 mmol/L (136-145)
[2021-07-11] MEDS ORDERED: fentaNYL citrate 100 MCG/2 ML VIAL IV STA (17:16)
[2021-07-11] MEDS: LORazepam 2 MG/1 ML VIAL IV STA ×2 (17:52→20:19)
[2021-07-11] MEDS ORDERED: LORazepam 2 MG/1 ML VIAL ONE (20:14)
[2021-07-11] MEDS ORDERED: GADOBUTROL 65ML VIAL IV ONE (21:13)
[2021-07-11] MEDS ORDERED: dexAMETHasone**PF** 10 MG/ML VIAL IV ONE (21:32)
[2021-07-11] MEDS ORDERED: KETOROLAC TROMETHAMINE 15 MG/ML VIAL IV STA (22:01)
--- NOTE | 2021-07-11 22:57 | History & Physical Report ---
Date of Service July 11, 2021 Assessment & Plan (1) Acute low back pain with sciatica: Plan: 56yo female with a history of back pain presents with a 2-3 day history of worsening back pain. Back pain Likely secondary to known degenerative changes MRI lumbar spine relatively unchanged from prior - showing no acute fracture, degenerative change at L3-L4 and L5-S1, mild foraminal L4-L5 stenosis, no significant spinal canal stenosis, no evidence of cauda equina syndrome, no evidence of abscess Dexamethasone 6mg IV administered in ED; ordered one additional 4mg dose for 8 hours after last dose; will defer decision for scheduled steroids to day team Pain control plan: Continue home gabapentin and duloxetine APAP 650mg q4h scheduled Toradol 30mg q6h scheduled Heating pad as needed Morphine 4mg q3h prn breakthrough pain Pain management consulted Held off on consulting ortho/spine given relatively unchanged imaging - will defer decision to day team Chronic conditions: Asthma: continue home inhaler regimen Anxiety: continue home vortioxetine GERD: continue home omeprazole Hypothyroidism: continue home levothyroxine FEN: regular diet Code status: full code DVT ppx: SCDs Consults: pain management PT/OT: ordered Dispo: med/surg (2) Anxiety: (3) GERD (gastroesophageal reflux disease): (4) Hypothyroidism: History of Present Illness Primary Care Provider: Cecilia Hurst MD 56yo female with a history of back pain presents with a 2-3 day history of worsening back pain. The pain radiates down the back of both thighs and to her left hip. Patient has some numbness and tingling of both lower extremities but patient notes this is not new for her and is not worse than normal. Patient reports some tingling around her buttock but denies saddle anesthesia. Endorses some difficulty holding her urine, but notes this has been going on for months and is not worse than normal. Denies bowel incontinence. Endorses mild nausea without vomiting. Patient endorses some weakness of her LLE but reports she has not had difficulty walking over the past few days or today. Denies fever, chills, headache, CP, SOB, abdominal pain, or other symptoms. Patient sees pain management for her chronic back pain and had an epidural injection at the beginning of this month, which helped for a week or so. Patient was also recently on steroids, patient is unsure if it helped. Patient spoke today with her pain management doctor who recommended increasing her dose of cymbalta. Allergies Allergy/AdvReac Type Severity Reaction Status Date / Time amoxicillin AdvReac Intermediate nausea Verified 07/11/21 16:51 Home Medications Medication Instructions Recorded Confirmed Type ibuprofen 200 mg tablet (Advil) 200 - 600 mg PO DIRECTED PRN 05/04/18 07/11/21 History montelukast 10 mg tablet 10 mg PO QAM 05/04/18 07/11/21 History acetaminophen 325 mg tablet 325 mg PO Q6H PRN 12/24/18 07/11/21 History (Tylenol) omeprazole 40 mg capsule,delayed 40 mg PO DAILY 04/14/19 07/11/21 History release ascorbic acid (vitamin C) 1,000 mg 1 g PO DAILY tab 01/04/20 07/11/21 History tablet aspirin 81 mg chewable tablet 81 mg PO DAILY 01/04/20 07/11/21 History cyanocobalamin (vitamin B-12) 100 100 mcg PO DAILY 01/04/20 07/11/21 History mcg tablet fluticasone furoate 200 1 inh INHALATION DAILY 01/04/20 07/11/21 History mcg-vilanterol 25 mcg/dose inhalation powder (Breo Ellipta) gabapentin 300 mg capsule 900 mg PO HS cap 01/04/20 07/11/21 History glucosamine sulfate 1,000 mg tablet 1,000 mg PO BIDM 01/04/20 07/11/21 History levothyroxine 112 mcg tablet 112 mcg PO DAILY 01/04/20 07/11/21 History magnesium oxide 250 mg PO DAILY 01/04/20 07/11/21 History mometasone 100 mcg/actuation HFA 1 puff INHALATION BID 01/04/20 07/11/21 History aerosol inhaler vortioxetine 5 mg tablet 5 mg PO DAILY 05/16/21 07/11/21 History (Trintellix) albuterol sulfate 90 mcg/actuation 2 inh INHALATION Q4H PRN 07/01/21 07/11/21 History breath activated powder inhaler (ProAir RespiClick) omega-3 fatty acids 1,000 mg 1,000 mg PO DAILY 07/01/21 07/11/21 History capsule tramadol 50 mg tablet 50 mg PO Q8H PRN #30 tab 07/04/21 07/11/21 Rx diazepam 5 mg tablet 5 mg PO .COMPLEX PRN 07/11/21 07/11/21 History duloxetine 60 mg capsule,delayed 60 mg PO BID 30 Days #60 cap 07/12/21 Rx release gabapentin 300 mg capsule 300 mg PO QAM 30 Days #30 cap 07/12/21 Rx prednisone 20 mg tablet 60 mg PO DAILY 4 Days #12 tab 07/12/21 Rx Past Med/Surg History Medical History Anxiety Cervical radiculopathy Cervicalgia Chest wall pain Diffuse myofascial pain syndrome Fibromyalgia GERD (gastroesophageal reflux disease) Hypothyroidism Intercostal neuralgia Leg edema Lumbar radicular pain Pain in rib Right upper quadrant abdominal pain Tobacco use Weakness of left lower extremity Surgical History History of cholecystectomy History of hysterectomy Hx of tonsillectomy Family History Other Cancer Coronary heart disease Social History Smoking Status: Current every day smoker Tobacco Type: Cigarettes Cigarettes Per Day: 1 pack; Second Hand Exposure: Yes; Do You Dip or Chew Tobacco: No; Hx Alcohol Use: No Hx Substance Use: No Preferred Language: Moroccan Communication Ability: Effective Visual Impairment: No Limitations Hearing Ability: Normal Family Resource Specialist Required: No Beliefs That Will Affect Care: None marital status: Current Living Situation: Significant Other Current Living Situation Comment: boyfriend and 2 grandsons current occupational status: unemployed current occupation: trying to get disability Other Information That Helps Us Care for You: No Feels Safe at Home: Yes Safety Concerns: Feels Safe At This Time Assistive Devices: Cane Review of Systems Review of Systems: See HPI Physical Exam Physical Exam: Constitutional: tired-appearing, no acute distress CV: regular rhythm, no murmur appreciated, extremities well-perfused, no LE edema Resp: CTABL, no wheezes/rales/rhonchi appreciated, no increased work of breathing GI: soft, nondistended, nontender, BS normoactive MSK: lumbar spine and lumbar paraspinal musculature tender to palpation L>R, LE sensation intact bilaterally, RLE strength 5/5 throughout, LLE strength 3/5 with hip flexion, left dorsi/plantarflexion 4/5, BL LE reflexes 1+ Neuro: groggy but fully oriented, no focal neurologic deficit appreciated Results & Data Results & Data ([facility]) Vital Signs (Past 12 Hours) Vital Signs Temp Pulse Pulse Resp BP BP Pulse Ox 07/11/21 21:50 78 20 142/99 H 95 07/11/21 16:15 98 07/11/21 13:59 36.6 C 94 H 18 128/77 97 Supervising Physician Co-Signing Physician Notes Attending addendum: I have physically seen this patient, have supervised the medical residents activities, and agree with the H&P unless as otherwise noted. Assessment and Plan: Intractable low back pain/acute LBP with sciatica- MRI with degenerative change L3-L4, L5-S1, with mild foraminal stenosis L4-L5, negative cauda equina syndrome Given dexamethasone 6 mg IV in ED continue dexamethasone 4 mg IV every 8 hours Pain management: Tylenol, Toradol and morphine as noted No signs of epidural abscess Consult pain management team Anxiety/pain management- Continue duloxetine, and gabapentin 300/900. Hold oral prednisone Hypothyroidism- Continue levothyroxine 12 mcg daily GERD- Continue omeprazole/pantoprazole Remaining orders and notations as noted Resident Activity Tracking Resident Involvement: Resident Care Provided Care Provided: Adult [facility] Medicine (1) Acute low back pain with sciatica Back pain laterality: left Sciatica laterality: sciatica of left side Qualified Code(s): M54.42 - Lumbago with sciatica, left side
[2021-07-11] MEDS ORDERED: ONDANSETRON INJ 2 MG/ML 2 ML VIAL IV PRN (23:09)
[2021-07-11] MEDS ORDERED: MoRPHine SULFATE 4 MG/ML 1 ML CARP\\VIAL IV PRN (23:09)
[2021-07-12] MEDS: ACETAMINOPHEN 325 MG TAB PO SCH ×5 (00:10→15:09)
[2021-07-12] MEDS ORDERED: ALBUTEROL HFA 8 GM INHALER INH PRN (00:27)
[2021-07-12] MEDS ORDERED: dexAMETHasone 4 MG in SYRINGE 0 ML IV ONE (05:30)
[2021-07-12] MEDS ORDERED: LEVOTHYROXINE SODIUM 112 MCG TABLET PO SCH (06:30)
[2021-07-12 06:53] LABS: Hematocrit (blood only) 41.6 % (37-47); Hemoglobin 14.2 g/dL (12.0-16.0); Immature Granulocytes # (auto) 0.01 K/uL (0.00-0.02); Immature Granulocytes % (auto) 0.2 %; Lymphocytes # (auto) 1.02 K/uL (1.2-3.4); Lymphocytes % (auto) 20.7 %; Mean Corpuscular Hemoglobin 31.5 pg (25-34); Mean Corpuscular Hgb Conc 34.1 g/dL (32-36); Mean Corpuscular Volume 92.2 fL (80-100); Mean Platelet Volume 9.7 fL (7.4-10.4); Monocytes # (auto) 0.12 K/uL (0.11-0.59); Monocytes % (auto) 2.4 %; Neutrophils # (auto) 3.77 K/uL (1.4-6.5); Neutrophils % (auto) 76.7 %; Platelet Count 181 K/uL (130-400); RDW Coefficient of Variation 12.8 % (11.5-14.5); RDW Standard Deviation 43.2 fL (36.4-46.3); Red Blood Count 4.51 M/uL (4.2-5.4); White Blood Count 4.92 K/uL (4.8-10.8)
[2021-07-12 07:13] LABS: BUN Creatinine Ratio 30.5 (10-20); Calcium 9.9 mg/dl (8.5-10.1); Creatinine Clr Calc Pharmacy 126.3 ml/min; Est GFR (African American) 117.1 ml/min; Potassium 4.5 mmol/L (3.5-5.1)
[2021-07-12 07:23] VITALS: PULSE 69; TEMP 98.2; O2SAT 98
--- NOTE | 2021-07-12 07:25 | Hospitalist Progress Note ---
Date of Service July 12, 2021 Assessment & Plan (1) Acute low back pain with sciatica: Plan: 56yo female with a history of back pain presents with a 2-3 day history of worsening back pain. Back pain Likely secondary to known degenerative changes MRI lumbar spine relatively unchanged from prior - showing no acute fracture, degenerative change at L3-L4 and L5-S1, mild foraminal L4-L5 stenosis, no significant spinal canal stenosis, no evidence of cauda equina syndrome, no evidence of abscess Dexamethasone 6mg IV administered in ED; ordered one additional 4mg dose for 8 hours after last dose; will defer decision for scheduled steroids to day team Pain control plan: Continue home gabapentin and duloxetine APAP 650mg q4h scheduled Toradol 30mg q6h scheduled Heating pad as needed Morphine 4mg q3h prn breakthrough pain Pain management consulted Held off on consulting ortho/spine given relatively unchanged imaging - will defer decision to day team Chronic conditions: Asthma: continue home inhaler regimen Anxiety: continue home vortioxetine GERD: continue home omeprazole Hypothyroidism: continue home levothyroxine FEN: regular diet Code status: full code DVT ppx: SCDs Consults: pain management PT/OT: ordered Dispo: med/surg (2) Anxiety: (3) GERD (gastroesophageal reflux disease): (4) Hypothyroidism: Admission and Anticipated Discharge Date Admission Date: July 11, 2021 Subjective Required 1 dose of PRN morphine overnight. Review of Systems Review of Systems: as per HPI Physical Exam Physical Exam: General: 56-year old female who is alert, oriented, and appears in no acute distress. HEENT: NCAT. - Eyes - Sclera are white, anicteric, and without injection. - Mouth - MMM - Neck - supple, no appreciable JVD Cardiac: Normal rate and regular rhythm; S1 and S2 present with no murmurs, rubs, or gallops. Pulmonary: Good respiratory effort with symmetric expansion of the chest. No use of accessory muscles. Lungs were clear to auscultation bilaterally with no crackles or wheezes. Abdominal: Normoactive bowel sounds. Abdomen was soft, nondistended, and non- tender to palpation. Extremities: Upper and lower extremities are warm and well perfused. [] peripheral edema in the lower extremities bilaterally Psych: Well-developed, well-nourished, appropriately dressed for occasion. Behavior is cooperative and appropriate. Affect is WNL. Insight is appropriate. Results & Data Results & Data ([facility]) Vital Signs (Past 12 Hours) Vital Signs Temp Pulse Pulse Resp BP BP Pulse Ox 07/12/21 00:00 37 C 87 18 145/86 H 93 07/11/21 23:45 37 C 87 20 145/86 H 93 07/11/21 23:34 74 18 146/81 H 95 07/11/21 21:50 78 20 142/99 H 95 Diagnostic Findings STAT RAD: "Degenerative changes most pronounced from L3-4 through L5-S1. No significant spinal canal stenosis. Mild foraminal stenosis at L4-5 on the right, otherwise foramina are unremarkable. Unremarkable appearance of the distal cord and nerve roots." Resident Activity Tracking Resident Involvement: Resident Care Provided Care Provided: Adult Hospital Medicine (1) Acute low back pain with sciatica Back pain laterality: left Sciatica laterality: sciatica of left side Qualified Code(s): M54.42 - Lumbago with sciatica, left side
--- NOTE | 2021-07-12 08:16 | Magnetic Resonance Report ---
MR lumbar spine wo/w con CLINICAL HISTORY: Low back pain radiating into the left hip with numbness. Patient reports increased severity after spinal injection. TECHNIQUE: Multiplanar multisequence images of the Lumbar Spine were performed with and without IV c ontrast. Contrast Volume: 11 ml of Gadavist COMPARISON: None. FINDINGS: There is no evidence for vertebral body fracture. The heights of the vertebral bodies are maintained. There is degenerative grade 1/4 spondylolisthesis of L4 on L5. The remaining lumbar verte bral bodies are in anatomic alignment. Homogeneous marrow signal is seen without evidence for marrow edema or marrow replacement. There is no abnormal enhancement following contrast administration. T12-L1: The disc space height is maintained. There are no focal disc protrusions or extrusions ident ified. The thecal sac and epidural fat are maintained. The neural foramen are patent bilaterally. Th ere is no evidence for nerve root encroachment. The facet joints are within normal limits. L1-2: The disc space height is maintained. There are no focal disc protrusions or extrusions identif ied. The thecal sac and epidural fat are maintained. The neural foramen are patent bilaterally. Ther e is no evidence for nerve root encroachment. The facet joints are within normal limits. L2-3: The disc space height is maintained. There are no focal disc protrusions or extrusions identif ied. The thecal sac and epidural fat are maintained. The neural foramen are patent bilaterally. Ther e is no evidence for nerve root encroachment. The facet joints are within normal limits. L3-4: There is mild disc space narrowing and disc desiccation with a small broad-based to right late ral disc protrusion/herniation present. This measures 4 mm with a small central annular tear. There is mild associated flattening of thecal sac anteriorly and mild encroachment upon the neural foramen bilaterally. There is no evidence for nerve root encroachment. The facet joints are within normal paula its. L4-5: There is mild disc space narrowing with grade 1/4 spondylolisthesis of L4 on L5 again seen. Th ere are no focal disc protrusions or extrusions identified. There is diffuse bulging annulus with fl attening of thecal sac anteriorly and encroachment upon the neural foramen bilaterally. Moderate hype rtrophic facet joint disease with thickening of ligamentum flavum is present bilaterally. The combina tion of these findings produce mild bilateral foraminal stenosis. No focal nerve root impingement is identified. L5-S1: There is mild disc space narrowing with diffuse bulging of the annulus present. There are no focal disc protrusions or extrusions identified. Due to the increase amount of epidural fat anterior to the thecal sac at this level, no encroachment upon the thecal sac is seen. The neural foramen are patent bilaterally. There is no evidence for nerve root encroachment. There is mild hypertrophic fac et joint disease present bilaterally. IMPRESSION: 1. Small broad-based to right lateral disc protrusion/herniation at L3-4. 2. Degenerative grade 1/4 spondylolisthesis of L4 on L5 with mild bilateral foraminal stenosis. 3. Bulging annulus at L5-S1. ACT 112: Negative or not required by law. Electronically signed by: Bakari Santana M.D. 07/12/2021 8:15 AM
--- NOTE | 2021-07-12 08:57 | Pain Management Consultation ---
Date of Consultation July 12, 2021 Assessment & Plan (1) Acute low back pain with sciatica: Back pain laterality: left Sciatica laterality: sciatica of left side Qualified Code(s): M54.42 - Lumbago with sciatica, left side (2) Diffuse myofascial pain syndrome: (3) Fibromyalgia: * I have increased the Gabapentin to 300mg AM and Gabapentin 900mg HS * Cymbalta increased to 60mg twice daily * I have initiated patient on Prednisone 60mg daily x 5 days * Would not recommend repeat lumbar epidural injection at this time. * No acute changes from lumbar MRI that was performed yesterday. * Epidural abscess ruled out with lumbar MRI. * Recommend physical therapy. Thank you for the consultation. Please contact with any questions or concerns. History of Present Illness Reason for Consultation: Intractable back pain Attending Physician: Sam Das, DO History of Present Illness Mrs. Baca is a 56 year old female that is known to the [facility] for diffuse myofascial pain complaints and back pain. She describes a dull ache in the thoracic to lumbar region and numbness into the left leg in an L4 distribution. She denies any injury. Pain is aggravated with standing, walking, and laying supine. She has been sleeping in a recliner the last several weeks. She has contacted our office several times and has been instructed to increase Gabapentin and Cymbalta. She was also given prescriptions for Tramadol and Medrol Wade. Medrol Wade was helpful for the short term. Tramadol was not effective. She does report some difficulty holding her urine. The left leg feels weak like it may give out on her. No bowel incontinence, saddle anesthesia, foot drop, falls. Case discussed with Dr. Natalee Dalal Pain Assessment Full Body Front + Back: 1. 2. 3. Allergies Allergy/AdvReac Type Severity Reaction Status Date / Time amoxicillin AdvReac Intermediate nausea Verified 07/11/21 16:51 Home Medications Medication Instructions Recorded Confirmed Type ibuprofen 200 mg tablet (Advil) 200 - 600 mg PO DIRECTED PRN 05/04/18 07/11/21 History montelukast 10 mg tablet 10 mg PO QAM 05/04/18 07/11/21 History acetaminophen 325 mg tablet 325 mg PO Q6H PRN 12/24/18 07/11/21 History (Tylenol) omeprazole 40 mg capsule,delayed 40 mg PO DAILY 04/14/19 07/11/21 History release duloxetine 60 mg capsule,delayed 60 mg PO QAM cap 08/26/19 07/11/21 History release (Cymbalta) ascorbic acid (vitamin C) 1,000 mg 1 g PO DAILY tab 01/04/20 07/11/21 History tablet aspirin 81 mg chewable tablet 81 mg PO DAILY 01/04/20 07/11/21 History cyanocobalamin (vitamin B-12) 100 100 mcg PO DAILY 01/04/20 07/11/21 History mcg tablet fluticasone furoate 200 1 inh INHALATION DAILY 01/04/20 07/11/21 History mcg-vilanterol 25 mcg/dose inhalation powder (Breo Ellipta) gabapentin 300 mg capsule 900 mg PO HS cap 01/04/20 07/11/21 History glucosamine sulfate 1,000 mg tablet 1,000 mg PO BIDM 01/04/20 07/11/21 History levothyroxine 112 mcg tablet 112 mcg PO DAILY 01/04/20 07/11/21 History magnesium oxide 250 mg PO DAILY 01/04/20 07/11/21 History mometasone 100 mcg/actuation HFA 1 puff INHALATION BID 01/04/20 07/11/21 History aerosol inhaler vortioxetine 5 mg tablet 5 mg PO DAILY 05/16/21 07/11/21 History (Trintellix) albuterol sulfate 90 mcg/actuation 2 inh INHALATION Q4H PRN 07/01/21 07/11/21 History breath activated powder inhaler (ProAir RespiClick) omega-3 fatty acids 1,000 mg 1,000 mg PO DAILY 07/01/21 07/11/21 History capsule tramadol 50 mg tablet 50 mg PO Q8H PRN #30 tab 07/04/21 07/11/21 Rx diazepam 5 mg tablet 5 mg PO .COMPLEX PRN 07/11/21 07/11/21 History Patient History Medical History Anxiety Cervical radiculopathy Cervicalgia Chest wall pain Diffuse myofascial pain syndrome Fibromyalgia GERD (gastroesophageal reflux disease) Hypothyroidism Intercostal neuralgia Leg edema Lumbar radicular pain Pain in rib Right upper quadrant abdominal pain Tobacco use Weakness of left lower extremity Surgical History History of cholecystectomy History of hysterectomy Hx of tonsillectomy Family History Other Cancer Coronary heart disease Social History Smoking Status: Current every day smoker Tobacco Type: Cigarettes Cigarettes Per Day: 1 pack; Second Hand Exposure: Yes; Do You Dip or Chew Tobacco: No; Hx Alcohol Use: No Hx Substance Use: No Preferred Language: Czech Communication Ability: Effective Visual Impairment: No Limitations Hearing Ability: Normal Screen Printing Supervisor Required: No Beliefs That Will Affect Care: None marital status: Current Living Situation: Significant Other Current Living Situation Comment: boyfriend and 2 grandsons current occupational status: unemployed current occupation: trying to get disability Other Information That Helps Us Care for You: No Feels Safe at Home: Yes Safety Concerns: Feels Safe At This Time Assistive Devices: None Physical Exam Physical Exam: GENERAL: This is an obese 56 year old female. In no acute distress. Resting comfortably in the hospital bed. Able to roll without difficulty. HEAD/FACE: Normocephalic and atraumatic. EYES: No drainage or conjunctival injection. ENT: Nose without bleeding or discharge. Oral mucosa moist. NECK: Full ROM without apparent pain. No swelling or masses noted. RESPIRATORY: Patient with unlabored breathing. No signs of respiratory distress. CHEST/AXILLA: Chest movement symmetrical. No deformities noted. ABDOMEN/GI: No distension BACK: Moves with little difficulty. Diffuse hyperalgesia along the thoracic and lumbar region. No muscle spasm noted. SKIN: [place], warm and dry. No rash noted. MS/EXTREMITY: 5/5 strength of the lower extremities. No tenderness of the greater trochanteric bursa. NEURO: Alert and appears oriented. Speech is fluent. Cranial Nerves are grossly intact. PSYCH: Alert, pleasant, affect is calm Results (Pain Clinic) Diagnostic Review MRI Findings: MR lumbar spine wo/w con CLINICAL HISTORY: Low back pain radiating into the left hip with numbness. Patient reports increased severity after spinal injection. TECHNIQUE: Multiplanar multisequence images of the Lumbar Spine were performed with and without IV contrast. Contrast Volume: 11 ml of Gadavist COMPARISON: None. FINDINGS: There is no evidence for vertebral body fracture. The heights of the vertebral bodies are maintained. There is degenerative grade 1/4 spondylolisthesis of L4 on L5. The remaining lumbar vertebral bodies are in anatomic alignment. Homogeneous marrow signal is seen without evidence for marrow edema or marrow replacement. There is no abnormal enhancement following contrast administration. T12-L1: The disc space height is maintained. There are no focal disc protrusions or extrusions identified. The thecal sac and epidural fat are maintained. The neural foramen are patent bilaterally. There is no evidence for nerve root encroachment. The facet joints are within normal limits. L1-2: The disc space height is maintained. There are no focal disc protrusions or extrusions identified. The thecal sac and epidural fat are maintained. The neural foramen are patent bilaterally. There is no evidence for nerve root encroachment. The facet joints are within normal limits. L2-3: The disc space height is maintained. There are no focal disc protrusions or extrusions identified. The thecal sac and epidural fat are maintained. The neural foramen are patent bilaterally. There is no evidence for nerve root encroachment. The facet joints are within normal limits. L3-4: There is mild disc space narrowing and disc desiccation with a small broad-based to right lateral disc protrusion/herniation present. This measures 4 mm with a small central annular tear. There is mild associated flattening of thecal sac anteriorly and mild encroachment upon the neural foramen bilaterally. There is no evidence for nerve root encroachment. The facet joints are within normal limits. L4-5: There is mild disc space narrowing with grade 1/4 spondylolisthesis of L4 on L5 again seen. There are no focal disc protrusions or extrusions identified. There is diffuse bulging annulus with flattening of thecal sac anteriorly and encroachment upon the neural foramen bilaterally. Moderate hypertrophic facet joint disease with thickening of ligamentum flavum is present bilaterally. The combination of these findings produce mild bilateral foraminal stenosis. No focal nerve root impingement is identified. L5-S1: There is mild disc space narrowing with diffuse bulging of the annulus present. There are no focal disc protrusions or extrusions identified. Due to the increase amount of epidural fat anterior to the thecal sac at this level, no encroachment upon the thecal sac is seen. The neural foramen are patent bilaterally. There is no evidence for nerve root encroachment. There is mild hypertrophic facet joint disease present bilaterally. IMPRESSION: 1. Small broad-based to right lateral disc protrusion/herniation at L3-4. 2. Degenerative grade 1/4 spondylolisthesis of L4 on L5 with mild bilateral foraminal stenosis. 3. Bulging annulus at L5-S1. ACT 112: Negative or not required by law. Electronically signed by: Bakari Santana M.D. 07/12/2021 8:15 AM
[2021-07-12] MEDS ORDERED: CYANOCOBALAMIN (B-12) 100 MCG TABLET PO SCH (09:00)
[2021-07-12] MEDS ORDERED: FLUTICASONE/VILANTEROL 200/25MCG 14 PUFFS/INHALER INH SCH (09:00)
[2021-07-12] MEDS ORDERED: ASPIRIN 81 MG ECTAB PO SCH (09:00)
[2021-07-12] MEDS ORDERED: PANTOprazole 40 MG TAB PO SCH (09:00)
[2021-07-12] MEDS ORDERED: MOMETASONE INH SCH (09:00)
[2021-07-12] MEDS ORDERED: DULoxetine HCL 60 MG CAP PO SCH ×2 (09:00)
[2021-07-12] MEDS ORDERED: MONTELUKAST SODIUM 10 MG TABLET PO SCH (09:00)
[2021-07-12] MEDS ORDERED: predniSONE 20 MG TAB PO SCH (09:30)
[2021-07-12] MEDS ORDERED: GABAPENTIN 300 MG CAP PO SCH ×2 (09:30→21:00)
--- NOTE | 2021-07-12 12:59 | Discharge Summary ---
Date of Service July 12, 2021 Admission HPI Per Admitting Provider 56yo female with a history of back pain presents with a 2-3 day history of worsening back pain. The pain radiates down the back of both thighs and to her left hip. Patient has some numbness and tingling of both lower extremities but patient notes this is not new for her and is not worse than normal. Patient reports some tingling around her buttock but denies saddle anesthesia. Endorses some difficulty holding her urine, but notes this has been going on for months and is not worse than normal. Denies bowel incontinence. Endorses mild nausea without vomiting. Patient endorses some weakness of her LLE but reports she has not had difficulty walking over the past few days or today. Denies fever, chills, headache, CP, SOB, abdominal pain, or other symptoms. Patient sees pain management for her chronic back pain and had an epidural injection at the beginning of this month, which helped for a week or so. Patient was also recently on steroids, patient is unsure if it helped. Patient spoke today with her pain management doctor who recommended increasing her dose of cymbalta. Admission Exam Per Admitting Provider Constitutional: tired-appearing, no acute distress CV: regular rhythm, no murmur appreciated, extremities well-perfused, no LE edema Resp: CTABL, no wheezes/rales/rhonchi appreciated, no increased work of breathing GI: soft, nondistended, nontender, BS normoactive MSK: lumbar spine and lumbar paraspinal musculature tender to palpation L>R, LE sensation intact bilaterally, RLE strength 5/5 throughout, LLE strength 3/5 with hip flexion, left dorsi/plantarflexion 4/5, BL LE reflexes 1+ Neuro: groggy but fully oriented, no focal neurologic deficit appreciated Principal Diagnosis degenerative disk disease fibromyalgia flare / piriformis syndrome / IT band syndrome Discharge Exam General: 56-year old female who is alert, oriented, and appears in no acute distress. HEENT: NCAT. - Eyes - Sclera are white, anicteric, and without injection. - Mouth - MMM - Neck - supple, no appreciable JVD Cardiac: Normal rate and regular rhythm; S1 and S2 present with no murmurs, rubs, or gallops. Pulmonary: Good respiratory effort with symmetric expansion of the chest. No use of accessory muscles. Lungs were clear to auscultation bilaterally with no crackles or wheezes. Abdominal: Normoactive bowel sounds. Abdomen was soft, nondistended, and non- tender to palpation. MSK/Back: No midline tenderness. +paraspinal firmness and tenderness appreciated bilaterally, L>R, along the lower thoracic and lumbar regions. Palpation in the buttocks does reveal +TTP immediately adjacent and lateral to the L greater trochanter, extending across the expected location of the piriformis. There is also +TTP along the L IT band. Strength - 5/5 on R, 4/5 on L. Sensation to light touch grossly intact, though patient does report some sensory abnormalities in the posterior L thigh extending anterolaterally approaching the knee, then down the anterior lower leg. Reflexes 2+ b/l. Discharge Data Allergies Allergy/AdvReac Type Severity Reaction Status Date / Time amoxicillin AdvReac Intermediate nausea Verified 07/11/21 16:51 Consultations 07/11/21 22:27 ED Decision to Admit Stat 07/11/21 23:09 Consult Pain Management Routine -- Excerpt:" * I have increased the Gabapentin to 300mg AM and Gabapentin 900mg HS * Cymbalta increased to 60mg twice daily * I have initiated patient on Prednisone 60mg daily x 5 days * Would not recommend repeat lumbar epidural injection at this time. * No acute changes from lumbar MRI that was performed yesterday. * Epidural abscess ruled out with lumbar MRI. * Recommend physical therapy." Ordered Studies 07/11/21 14:49 MR lumbar spine wo/w con Stat "MR lumbar spine wo/w con CLINICAL HISTORY: Low back pain radiating into the left hip with numbness. Patient reports increased severity after spinal injection. TECHNIQUE: Multiplanar multisequence images of the Lumbar Spine were performed with and without IV contrast. Contrast Volume: 11 ml of Gadavist COMPARISON: None. FINDINGS: There is no evidence for vertebral body fracture. The heights of the vertebral bodies are maintained. There is degenerative grade 1/4 spondylolisthesis of L4 on L5. The remaining lumbar vertebral bodies are in anatomic alignment. Homogeneous marrow signal is seen without evidence for marrow edema or marrow replacement. There is no abnormal enhancement following contrast administration. T12-L1: The disc space height is maintained. There are no focal disc protrusions or extrusions identified. The thecal sac and epidural fat are maintained. The neural foramen are patent bilaterally. There is no evidence for nerve root encroachment. The facet joints are within normal limits. L1-2: The disc space height is maintained. There are no focal disc protrusions or extrusions identified. The thecal sac and epidural fat are maintained. The neural foramen are patent bilaterally. There is no evidence for nerve root encroachment. The facet joints are within normal limits. L2-3: The disc space height is maintained. There are no focal disc protrusions or extrusions identified. The thecal sac and epidural fat are maintained. The neural foramen are patent bilaterally. There is no evidence for nerve root encroachment. The facet joints are within normal limits. L3-4: There is mild disc space narrowing and disc desiccation with a small broad-based to right lateral disc protrusion/herniation present. This measures 4 mm with a small central annular tear. There is mild associated flattening of thecal sac anteriorly and mild encroachment upon the neural foramen bilaterally. There is no evidence for nerve root encroachment. The facet joints are within normal limits. L4-5: There is mild disc space narrowing with grade 1/4 spondylolisthesis of L4 on L5 again seen. There are no focal disc protrusions or extrusions identified. There is diffuse bulging annulus with flattening of thecal sac anteriorly and encroachment upon the neural foramen bilaterally. Moderate hypertrophic facet joint disease with thickening of ligamentum flavum is present bilaterally. The combination of these findings produce mild bilateral foraminal stenosis. No focal nerve root impingement is identified. L5-S1: There is mild disc space narrowing with diffuse bulging of the annulus present. There are no focal disc protrusions or extrusions identified. Due to the increase amount of epidural fat anterior to the thecal sac at this level, no encroachment upon the thecal sac is seen. The neural foramen are patent bilaterally. There is no evidence for nerve root encroachment. There is mild hypertrophic facet joint disease present bilaterally. IMPRESSION: 1. Small broad-based to right lateral disc protrusion/herniation at L3-4. 2. Degenerative grade 1/4 spondylolisthesis of L4 on L5 with mild bilateral foraminal stenosis. 3. Bulging annulus at L5-S1." Hospital Course (1) Acute low back pain with sciatica: 56yo female with a history of back pain presents with a 2-3 day history of worsening back pain. DDD with Fibromyalgia Flare, Piriformis Syndrome, and IT Band Syndrome Diffuse thoracolumbar pain is primarily myofascial in nature, and findings on physical exam -- when compounded with a relatively unchanged MRI and NO radiologic evidence of cord compression -- seem consistent with IT band syndrome and sciatica from piriformis syndrome MRI lumbar spine relatively unchanged from prior - showing no acute fracture, degenerative change at L3-L4 and L5-S1, mild foraminal L4-L5 stenosis, no significant spinal canal stenosis, no evidence of cauda equina syndrome, no evidence of abscess (see excerpted report) Pain control plan: Received dexamethasone 10mg total while here Pain management consulted and aided with medication recommendations below OMT explained and encouraged upon discharge with regularly scheduled sessions -- highly recommend continuing as outpatient Increase gabapentin to 300mg qAM, 900mg qHS Increase Cymbalta to 60mg b.i.d. Prednisone 60mg burst x 5 days Consider re-establishment with PT at d/c Chronic conditions: Asthma: continue home inhaler regimen Anxiety: continue home vortioxetine GERD: continue home omeprazole Hypothyroidism: continue home levothyroxine Code status: full code (2) Anxiety: (3) GERD (gastroesophageal reflux disease): (4) Hypothyroidism: Total Time Total Time Spent Total Time Spent (In Minutes): 45 Discharge Plan Discharge Items Patient Disposition: Home - Self-Care Reason For Visit: BACK PAIN Discharge Diagnosis: degenerative disk disease fibromyalgia flare / piriformis syndrome / IT band syndrome Activity: Per Instructions section Non-emergency contact: Primary Care Provider Call non-emergency contact if: your symptoms worsen, your pain is not controlled, your pain is worsening and your pain is unusual for you Follow-up/Referrals: Cecilia Hurst MD [Primary Care Provider] - Diet: Regular Addtl Attending Provider Instructions: THIS SENTENCE WILL BE REMOVED ONCE D/C INSTRUCTIONS ARE COMPLETED BY DR. OBREGON Please note the following medication additions/deletions/modifications: - INCREASE gabapentin to 300mg every morning PLUS 900mg every evening - INCREASE duloxetine (Cymbalta) to 60mg TWICE daily (once in AM, once in PM) - START prednisone 60mg daily (taken all at once in the AM) for 4 days following discharge Please follow up with your PCP within 1-2 weeks to review this visit. Please remember to discuss setting up regularly scheduled OMT sessions -- we feel you would strongly benefit from this type of therapy. In the interim, if you e xperience intractable back pain, inability or significant difficulties voiding / stooling (or losing control of your bowels/bladder), significant changes in mobility (e.g., can't move a leg, results in a fall), significant sensory changes, shortness of breath, chest pain, or other worrisome symptoms, please seek medical attention immediately by going to the ER. It was a pleasure for caring for you while here, and we wish you all the best in your recovery. Pending Studies at Discharge: No Stand-Alone Forms: My [facility], Smoking Cessation Medications and DC Order Prescriptions: New duloxetine 60 mg Capsule,Delayed Release(Dr/Ec) 60 mg PO BID 30 Days Qty: 60 RF: 1 gabapentin 300 mg Capsule 300 mg PO QAM 30 Days Qty: 30 RF: 1 prednisone 20 mg Tablet 60 mg PO DAILY 4 Days Qty: 12 RF: 0 Continued omeprazole 40 mg capsule,delayed release(DR/EC) 40 mg PO DAILY RF: 0 gabapentin 300 mg capsule 900 mg PO HS RF: 0 levothyroxine 112 mcg tablet 112 mcg PO DAILY RF: 0 cyanocobalamin (vitamin B-12) 100 mcg tablet 100 mcg PO DAILY RF: 0 mometasone 100 mcg/actuation HFA aerosol inhaler 1 puff inhalation BID RF: 0 aspirin 81 mg tablet,chewable 81 mg PO DAILY RF: 0 ascorbic acid (vitamin C) 1,000 mg tablet 1 g PO DAILY RF: 0 Breo Ellipta 200-25 mcg/dose blister with device 1 inh inhalation DAILY RF: 0 magnesium oxide 250 mg magnesium tablet 250 mg PO DAILY RF: 0 glucosamine sulfate 1,000 mg tablet 1,000 mg PO BIDM RF: 0 Trintellix 5 mg tablet 5 mg PO DAILY RF: 0 tramadol 50 mg tablet 50 mg PO Q8H PRN (Reason: pain) Qty: 30 RF: 0 acetaminophen [Tylenol] 325 mg Tablet 325 mg PO Q6H PRN (Reason: Pain) RF: 0 ibuprofen [Advil] 200 mg Tablet 200 - 600 mg PO DIRECTED PRN (Reason: Pain) RF: 0 montelukast 10 mg Tablet 10 mg PO QAM RF: 0 diazepam 5 mg tablet 5 mg PO .COMPLEX PRN (Reason: NEEDED) RF: 0 omega-3 fatty acids 1,000 mg Capsule 1,000 mg PO DAILY RF: 0 ProAir RespiClick 90 mcg/actuation aerosol powdr breath activated 2 inh INHALATION Q4H PRN (Reason: Shortness Of Breath) RF: 0 Discontinued duloxetine [Cymbalta] 60 mg capsule,delayed release(DR/EC) 60 mg PO QAM RF: 0 Discharge Orders: Discharge Order (Routine); Ordered 07/12/21 Ordered By: Sam Duron/Other Patient Handouts: Understanding Fibromyalgia, Hip Rotation (Flexibility), ED Degenerative Disk Disease, ED Sciatica Admission Data Admit Date/Time: 07/11/21 23:09 Attending Provider: Sam Obregon Admit Provider: Cedric Cross Primary Care Provider: Cecilia Hurst Other Providers: Bryan Haddad ; Cedric Cross Other Interventions: Discharge Summary Assessment (RN) Last Done: 07/12/21 15:31 Supervising Physician Co-Signing Physician Notes I personally examined the patient and verified all mcclelland points of history and exam, discussed case, and agree with decision making with Dr Lopez pain in buttock/hip down leg. ongoing for years. also some pain lower ribs vitals noted nad heent nc at mmm breathing unlabored msk/ost - L sided pelvic musculature in region of piriformis and gemmelis both high/tone/tender/decreased ROM - did trial of OMT w post-isometric relaxation muscle energy and LAS soft tissue indirect - pt tolerated well - surprising improvement in soft tissue response as well. also quite tender L IT band back pain - appears to be predominantly biomechanical - suspect pelvic stabilizers (piriformis and gemmelis) at center of pattern, with subsequent secondary strain/dysfunction affecting at least IT band distally, and likely paraspinals, possibly ribs/intercostals, possibly abdominal musculature proximally. safe/stable for home. showed surprisingly good response to trial of OMT. d/w her general treatment methods/anticipated need for frequency/duration - but also that with time, this would have a high likelihood of success. d/w her that i believe Dr Adhikari at her PCP's office does OMT so therefore he would be an ideal fit; if he no longer does OMT discussed that several of the DO residents do, so could be seen essentially as "OMT internal controls consultant" if need be. unfortunately she left hospital before i was able to include all this in writing in her dc instructions, but spent a good deal of time (?45mins) in the room assessing, educating, etc in addition to trial of OMT safe/stable for home otherwise as above Resident Activity Tracking Resident Involvement: Resident Care Provided Care Provided: Adult Hospital Medicine
[2021-07-12] MEDS ORDERED: KETOROLAC 30 MG/ML VIAL IV SCH (15:00)
[2021-07-12 15:32] VITALS: BP 145/86
--- NOTE | 2021-07-12 19:05 | Billing Data ---
Date of Service July 12, 2021 Coding Level of Care Code 63558 OBS Care - Discharge
--- NOTE | 2021-07-12 20:01 | Billing Data ---
Date of Service July 12, 2021 Coding Level of Care Code INT OBSERVATION CARE 70M LVL 3
== END 2021-07-12 16:34 | disposition home or self-care (01) ==
LOC: 3N 13:52 → ED 13:52 → SUATTDRO 23:09 → 3N 23:34
DX: J45.909 Unspecified asthma, uncomplicated; K21.9 Gastro-esophageal reflux disease without esophagitis; Z88.1 Allergy status to other antibiotic agents; M54.42 Lumbago with sciatica, left side; Z79.51 Long term (current) use of inhaled steroids; Z79.890 Hormone replacement therapy; Z79.891 Long term (current) use of opiate analgesic; F41.9 Anxiety disorder, unspecified; E03.9 Hypothyroidism, unspecified; F17.210 Nicotine dependence, cigarettes, uncomplicated; Z79.82 Long term (current) use of aspirin

== ENCOUNTER 2024-06-11 07:55 | Observation (INO) ==
--- NOTE | 2024-05-19 15:16 | PAT Medication Instructions ---
Medication Instructions Date of Service May 19, 2024 Home Medications Medication Instructions Recorded ondansetron 8 mg disintegrating 8 mg translingual TID PRN Nausea 04/18/23 tablet #30 tabs albuterol sulfate 2.5 mg/3 mL 2.5 mg (3 mL) inhalation 08/05/23 (0.083 %) solution for nebulization DIRECTED PRN Shortness Of Breath Or Wheezing #75 mL lidocaine 4 % topical patch 1 patch topical DAILY PRN pain #30 12/19/23 (AsperFlex (lidocaine)) ea gabapentin 300 mg capsule 900 mg (3 x 300 mg) PO HS #180 caps 02/16/24 levocetirizine 5 mg tablet (Xyzal) 5 mg PO QPM #90 tabs 02/16/24 montelukast 10 mg tablet 10 mg PO QAM #90 tabs 02/16/24 venlafaxine 75 mg capsule,extended 75 mg PO QAM #90 caps 02/16/24 release 24 hr (Effexor XR) albuterol sulfate 90 mcg/actuation 2 puff inhalation 6XD PRN 03/18/24 aerosol inhaler Shortness Of Breath Or Wheezing #6.7 grams ibuprofen 800 mg tablet 800 mg PO Q8H PRN pain #30 tabs 03/26/24 gabapentin 100 mg capsule 100 mg PO BID #180 caps 05/11/24 trazodone 50 mg tablet See Rx Instructions PO .COMPLEX 05/12/24 PRN insomnia #90 tabs ascorbic acid (vitamin C) 1,000 mg tablet 1 g PO QAM acetaminophen 650 mg tablet,extended release 1,300 mg PO TID PRN Pain azelastine 137 mcg (0.1 %) nasal spray 2 spray intranasal QAM PRN sinus congestion fluticasone propionate 50 mcg/actuation nasal spray,suspension (Flonase Allergy Relief) 2 spray intranasal DAILY PRN sinus congestion ondansetron 8 mg disintegrating tablet 8 mg translingual TID PRN Nausea albuterol sulfate 2.5 mg/3 mL (0.083 %) solution for nebulization 2.5 mg (3 mL) inhalation DIRECTED PRN Shortness Of Breath Or Wheezing lidocaine 4 % topical patch (AsperFlex (lidocaine)) 1 patch topical DAILY PRN pain gabapentin 300 mg capsule 900 mg (3 x 300 mg) PO HS levocetirizine 5 mg tablet (Xyzal) 5 mg PO QPM montelukast 10 mg tablet 10 mg PO QAM venlafaxine 75 mg capsule,extended release 24 hr (Effexor XR) 75 mg PO QAM albuterol sulfate 90 mcg/actuation aerosol inhaler 2 puff inhalation 6XD PRN Shortness Of Breath Or Wheezing ibuprofen 800 mg tablet 800 mg PO Q8H PRN pain gabapentin 100 mg capsule 100 mg PO BID trazodone 50 mg tablet See Rx Instructions PO .COMPLEX PRN insomnia cyanocobalamin (vitamin B-12) 2,500 mcg sublingual tablet (Vitamin B-12) 2,500 mcg sublingual QAM docusate sodium 100 mg capsule (Stool Softener) 100 mg PO HS duloxetine 30 mg capsule,delayed release 30 mg PO QAM duloxetine 60 mg capsule,delayed release 60 mg PO QAM ezetimibe 10 mg tablet (Zetia) 10 mg PO QAM fluticasone 250 mcg-salmeterol 50 mcg/dose blistr powdr for inhalation (Advair Diskus) 1 inh inhalation BID PRN sob fosfomycin tromethamine 3 gram oral packet 1 packet PO .COMPLEX PRN UTI levothyroxine 112 mcg tablet 112 mcg PO QAM mometasone 100 mcg/actuation HFA aerosol inhaler (Asmanex HFA) 1 puff inhalation BID PRN sob omeprazole 40 mg capsule,delayed release 40 mg PO QAM polyethylene glycol 3350 17 gram/dose oral powder (Miralax) 17 g PO DAILY PRN Constipation vibegron 75 mg tablet (Gemtesa) 75 mg PO QAM Continue as directed lidocaine 4 % topical patch (AsperFlex (lidocaine)) 1 patch topical DAILY PRN p ain (just do not put on or near surgical site) fosfomycin tromethamine 3 gram oral packet 1 packet PO .COMPLEX PRN UTI (if needed) ASK your surgeon for instructions ibuprofen 800 mg tablet 800 mg PO Q8H PRN pain DO NOT take the morning of surgery ascorbic acid (vitamin C) 1,000 mg tablet 1 g PO QAM cyanocobalamin (vitamin B-12) 2,500 mcg sublingual tablet (Vitamin B-12) 2,500 mcg sublingual QAM polyethylene glycol 3350 17 gram/dose oral powder (Miralax) 17 g PO DAILY PRN Constipation vibegron 75 mg tablet (Gemtesa) 75 mg PO QAM Take morning of surgery With a small sip of water, OTHERWISE NOTHING TO EAT OR DRINK AFTER MIDNIGHT: acetaminophen 650 mg tablet,extended release 1,300 mg PO TID PRN Pain (if needed) azelastine 137 mcg (0.1 %) nasal spray 2 spray intranasal QAM PRN sinus congestion (if needed) fluticasone propionate 50 mcg/actuation nasal spray,suspension (Flonase Allergy Relief) 2 spray intranasal DAILY PRN sinus congestion (if needed) ondansetron 8 mg disintegrating tablet 8 mg translingual TID PRN Nausea (if needed) albuterol sulfate 2.5 mg/3 mL (0.083 %) solution for nebulization 2.5 mg (3 mL) inhalation DIRECTED PRN Shortness Of Breath Or Wheezing (if needed) montelukast 10 mg tablet 10 mg PO QAM venlafaxine 75 mg capsule,extended release 24 hr (Effexor XR) 75 mg PO QAM gabapentin 300 mg capsule 900 mg (3 x 300 mg) PO HS albuterol sulfate 90 mcg/actuation aerosol inhaler 2 puff inhalation 6XD PRN Shortness Of Breath Or Wheezing (use if needed; please bring with you to hospital day of surgery if possible) gabapentin 100 mg capsule 100 mg PO BID duloxetine 30 mg capsule,delayed release 30 mg PO QAM duloxetine 60 mg capsule,delayed release 60 mg PO QAM ezetimibe 10 mg tablet (Zetia) 10 mg PO QAM fluticasone 250 mcg-salmeterol 50 mcg/dose blistr powdr for inhalation (Advair Diskus) 1 inh inhalation BID PRN sob (if needed) levothyroxine 112 mcg tablet 112 mcg PO QAM mometasone 100 mcg/actuation HFA aerosol inhaler (Asmanex HFA) 1 puff inhalation BID PRN sob (if needed) omeprazole 40 mg capsule,delayed release 40 mg PO QAM Take evening before surgery acetaminophen 650 mg tablet,extended release 1,300 mg PO TID PRN Pain (if needed) ondansetron 8 mg disintegrating tablet 8 mg translingual TID PRN Nausea (if needed) albuterol sulfate 2.5 mg/3 mL (0.083 %) solution for nebulization 2.5 mg (3 mL) inhalation DIRECTED PRN Shortness Of Breath Or Wheezing (if needed) gabapentin 300 mg capsule 900 mg (3 x 300 mg) PO HS levocetirizine 5 mg tablet (Xyzal) 5 mg PO QPM albuterol sulfate 90 mcg/actuation aerosol inhaler 2 puff inhalation 6XD PRN Shortness Of Breath Or Wheezing (if needed) gabapentin 100 mg capsule 100 mg PO BID trazodone 50 mg tablet See Rx Instructions PO .COMPLEX PRN insomnia (if needed) docusate sodium 100 mg capsule (Stool Softener) 100 mg PO HS fluticasone 250 mcg-salmeterol 50 mcg/dose blistr powdr for inhalation (Advair Diskus) 1 inh inhalation BID PRN sob (if needed) mometasone 100 mcg/actuation HFA aerosol inhaler (Asmanex HFA) 1 puff inhalation BID PRN sob (if needed) polyethylene glycol 3350 17 gram/dose oral powder (Miralax) 17 g PO DAILY PRN Constipation (if needed) Other Notes If you have any questions please call us at [phone] or [phone] or [phone] or [phone]
--- NOTE | 2024-05-28 10:04 | Anesthesiology Consultation ---
Date of Service May 28, 2024 Assessment & Plan (1) Encounter for pre-operative examination: Chart Review Chart Review: Acceptable Risk for Surgery (pending routine PCP office visit 06/02/24) and Patient seen in Pre Admission Testing - Awaiting routine wellness exam with PCP 06/02/24 - Awaiting response from patient regarding PNB (patient checking with neuromuscular specialist) - Patient is NOT an ideal OPJ candidate (currently 23 hour obs) Per PAT appt on 05/28/24, no recent illness/disease exposures, illness related symptoms, or recent illness/disease positive tests. 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 This diagnosis should not preclude her from shoulder replacement surgery." Per neuromuscular specialist letter 04/08/24= Patient seen for neuromuscular consultation regarding diagnosis of multifocal motor neuropathy. Patient follows with neurology locally. Electrodiagnostic testing at outside institution Does show some borderline changes with possible forearm conduction blocks and the ulnar nerves but unsure if Krishna-Sergio anastomosis was evaluated for. Borderline findings in the median nerve as well. Rather significant pain and although she has weakness is a bit limited by pain. Do not see atrophy or paralysis on examination. Patient has some positive serological markers that do not have great sensitivity or specificity at times. Clinical examination does not raise high suspicion for multifocal motor neuropathy. Query if patient is just suffering from possible axonal neuropathy versus polyradiculopathy in the lower extremities as well as cervical radiculopathy and entrapment such as carpal tunnel syndrome in her upper extremities. I agree that I would not proceed with trial of immunotherapy with IVIG at this point. Patient would like to come to our electrodiagnostic lab to have at least an assessment on her lower left extremity and right upper extremity to see if she truly has motor conduction blocks at noncompressible sites. Might also consider neuromuscular ultrasound based on the results of nerve conduction findings. Follow-up based on results of testing. (Patient will message [facility] neuro to inquire if there are any contraindications to a PNB) History Surgery Operation Date: 06/11/24 07:00 Proposed Procedures p Left Reverse Total Shoulder Arthroplasty, Biceps Tenodesis - Cm Chávez MD Height/Weight Height: 5 ft 4 in Weight: 97.3 kg Allergies Allergy/AdvReac Type Severity Reaction Status Date / Time nitrofurantoin AdvReac Severe flu like Verified 05/19/24 13:36 [From Macrobid] symptoms amoxicillin AdvReac Intermediate nausea Verified 05/19/24 13:36 tramadol AdvReac Intermediate hot Verified 05/19/24 13:36 flashes & nausea Medications Home Medications Medication Instructions Recorded Confirmed Last Taken ascorbic acid (vitamin C) 1,000 mg 1 g PO QAM 01/04/20 05/19/24 07/11/21 tablet acetaminophen 650 mg 1,300 mg PO TID PRN Pain 07/18/21 05/19/24 07/18/21 14:00 tablet,extended release azelastine 137 mcg (0.1 %) nasal 2 spray intranasal QAM PRN sinus 06/17/22 05/19/24 Unknown spray congestion fluticasone propionate 50 2 spray intranasal DAILY PRN sinus 06/17/22 05/19/24 Unknown mcg/actuation nasal congestion spray,suspension (Flonase Allergy Relief) ondansetron 8 mg disintegrating 8 mg translingual TID PRN Nausea 04/18/23 05/19/24 Unknown tablet #30 tabs albuterol sulfate 2.5 mg/3 mL 2.5 mg (3 mL) inhalation 08/05/23 05/19/24 Unknown (0.083 %) solution for nebulization DIRECTED PRN Shortness Of Breath Or Wheezing #75 mL lidocaine 4 % topical patch 1 patch topical DAILY PRN pain #30 12/19/23 05/19/24 Unknown (AsperFlex (lidocaine)) ea gabapentin 300 mg capsule 900 mg (3 x 300 mg) PO HS #180 caps 02/16/24 05/19/24 Unknown levocetirizine 5 mg tablet (Xyzal) 5 mg PO QPM #90 tabs 02/16/24 05/19/24 Unknown montelukast 10 mg tablet 10 mg PO QAM #90 tabs 02/16/24 05/19/24 Unknown venlafaxine 75 mg capsule,extended 75 mg PO QAM #90 caps 02/16/24 05/19/24 Unknown release 24 hr (Effexor XR) albuterol sulfate 90 mcg/actuation 2 puff inhalation 6XD PRN 03/18/24 05/19/24 Unknown aerosol inhaler Shortness Of Breath Or Wheezing #6.7 grams ibuprofen 800 mg tablet 800 mg PO Q8H PRN pain #30 tabs 03/26/24 05/19/24 Unknown gabapentin 100 mg capsule 100 mg PO BID #180 caps 05/11/24 05/19/24 Unknown trazodone 50 mg tablet See Rx Instructions PO .COMPLEX 05/12/24 05/19/24 Unknown PRN insomnia #90 tabs cyanocobalamin (vitamin B-12) 2,500 mcg sublingual QAM 05/19/24 05/19/24 Unknown 2,500 mcg sublingual tablet (Vitamin B-12) docusate sodium 100 mg capsule 100 mg PO HS 05/19/24 05/19/24 Unknown (Stool Softener) duloxetine 30 mg capsule,delayed 30 mg PO QAM 05/19/24 05/19/24 Unknown release duloxetine 60 mg capsule,delayed 60 mg PO QAM 05/19/24 05/19/24 Unknown release ezetimibe 10 mg tablet (Zetia) 10 mg PO QAM 05/19/24 05/19/24 Unknown fluticasone 250 mcg-salmeterol 50 1 inh inhalation BID PRN sob 05/19/24 05/19/24 Unknown mcg/dose blistr powdr for inhalation (Advair Diskus) fosfomycin tromethamine 3 gram 1 packet PO .COMPLEX PRN UTI 05/19/24 05/19/24 Unknown oral packet levothyroxine 112 mcg tablet 112 mcg PO QAM 05/19/24 05/19/24 Unknown mometasone 100 mcg/actuation HFA 1 puff inhalation BID PRN sob 05/19/24 05/19/24 Unknown aerosol inhaler (Asmanex HFA) omeprazole 40 mg capsule,delayed 40 mg PO QAM 05/19/24 05/19/24 Unknown release polyethylene glycol 3350 17 17 g PO DAILY PRN Constipation 05/19/24 05/19/24 Unknown gram/dose oral powder (Miralax) vibegron 75 mg tablet (Gemtesa) 75 mg PO QAM 05/19/24 05/19/24 Unknown Past Medical History Medical History Anxiety Asthma well controlled and stable Cervical radiculopathy Chronic back pain Chronic constipation Chronic obstructive pulmonary disease emphysema well controlled, uses inhalers PRN. rarely needs inhalers. 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 Insomnia Intercostal neuralgia left rib area (occasional) Leg edema If prolonged standing/walking RENETTA (obstructive sleep apnea) cannot tolerate CPAP Osteoarthritis Urinary urgency Exercise / Class Metabolic Activity III < 4 Walking/Shop/Light housework (no chest pain or SOB with flat surface ambulation ) Past Family History Family History Sister Breast cancer Mother Cancer Grandmother Cancer Father Heart disease Grandfather Heart disease Other Coronary heart disease No family history of adverse response to anesthesia Past Surgical History Surgical History H/O colonoscopy History of appendectomy History of cardiac cath (2019) at [facility], Dr. River - no stents. (suspected NSTEMI, ruled out) History of cholecystectomy Hx of tonsillectomy S/P epidural steroid injection lumbar and cervical S/P ADDISON (total abdominal hysterectomy) with unilateral salping-oopherectomy S/P total knee replacement Right Past Anesthesia History No Hx of Anesthesia Complications and No Family Hx of Anesthesia Complications History of PONV No Hx of PONV and No Hx of Motion Sickness Social History Smoking Status: Current every day smoker tobacco type: cigarettes Smoking cigarettes per day: 1 pack (advised on policy by nursing) Do You Dip or Chew Tobacco: No Hx Alcohol Use: Yes Alcohol type: beer alcohol intake frequency: holidays/special occasions only Hx Substance Use: No substance use type: does not use Review of Systems - Occ palpitations (possibly caffeine induced) - Dry mouth with occ cough feels caused by medication Patient denies chest pain, shortness of breath at rest, wheezing. No hx of seizures, stroke, PA. No hx of blood clots or blood transfusions Physical Exam Vital Signs VITALS BP 116/78 P 81 TEMP 97.8 SP02 95% RESP 16 Constitutional no acute distress ENMT Mouth: no TMJ clicking Thyromental Distance: > or= 3.5 Finger Breadths (3.5) Mallampati Class: II Mouth / Teeth: 2 1. Filling due to cracked tooth from EGD Partial plate on top Missing side teeth/molars on bottom [place] to side teeth Neck + limited neck extension Respiratory normal respiratory effort; no respiratory distress Auscultation: lungs clear to auscultation bilaterally; no wheezes Cardiovascular Rate/Rhythm: regular rate and regular rhythm Heart Sounds: no murmur Vessels: no carotid bruit Musculoskeletal Spine: + pain with cervical ROM Extremities: extremities normal to inspection Psychiatric Orientation: alert Lab Results Anesthesia Preop Results Results Anesthesia Widget: 2 WBC 6.21 K/ul (4.8-10.8) 05/14/24 Hgb 13.2 g/dl (12.0-16.0) 05/14/24 Hct 39.0 % (37.0-47.0) 05/14/24 Plt 169 K/uL (130-400) 05/14/24 Na 140 mmol/L (136-145) 05/14/24 K 3.5 mmol/L (3.5-5.1) 05/14/24 Cl 106 mmol/L (98-107) 05/14/24 CO2 30 mmol/L (21-32) 05/14/24 BUN 10 mg/dl (6-23) 05/14/24 Creat 0.69 mg/dl (0.6-1.2) 05/14/24 Glucose Level 92 mg/dl (70-99(Fasting)) 05/14/24 PT 9.9 Seconds (9.0-12.0) 05/28/24 PTT 27 Seconds (21-31) 05/28/24 INR 0.9 (0.9-1.1) 05/28/24 TSH 0.321 uIu/ml (0.300-4.500) 05/14/24 Free T4 0.93 ng/dl (0.61-1.60) 05/14/24 HA1c 5.1 % (4.5-5.6) 05/14/24 Blood Type A Positive 05/28/24 Antibody Screen NEGATIVE 05/28/24 Testing Electrocardiogram Date: 05/28/24 Findings: + NSR @ (80bpm) Normal EKG per cardio Chest X-Ray Date: 05/28/24 Findings: + NAD FINDINGS: Heart size and pulmonary vasculature are normal. No effusion or consolidation. Stable mild scoliosis. Echocardiogram Date: 12/25/18 EF: 60-65% LV Function: normal RWMA: + none Other Findings: + LVH (moderate/concentric ) Mild TR Doppler findings do not suggest pulm HTN Cardiac Catheterization Date: 12/24/18 Findings: LM -angiographically normal LAD -angiographically normal Circumflex -angiographically normal RCA -angiographically normal Summary: 1. Angiographically normal coronary arteries 2. Normal intracardiac filling pressure
[~2024-06-11 07:55] MED LIST: BUPIVACAINE 0.5 % 5 MG/1 ML PF 10ML VIAL ONE
[2024-06-11] MEDS ORDERED: MIDAZOLAM HCL 1 MG/ML 2ML VIAL ONE (08:24)
[2024-06-11] MEDS ORDERED: fentaNYL citrate PF 100 MCG/2 ML VIAL ONE (08:25)
[2024-06-11] MEDS ORDERED: PROPOFOL IV EMULSION 10 MG/ML 20 ML VIAL IV ONE (08:25)
[2024-06-11] MEDS ORDERED: LIDOCAINE 2% 2 ML VIAL/AMP(20MG/ML) INFIL ONE (08:25)
[2024-06-11] MEDS ORDERED: ONDANSETRON INJ 2 MG/ML 2 ML VIAL ONE (08:26)
[2024-06-11] MEDS ORDERED: ROCURONIUM BROMIDE 10 MG/ML 5 ML VIAL IV ONE (08:26)
[2024-06-11] MEDS ORDERED: DEXAMETHASONE SOD INJ 4 MG/ML VIAL ONE ×2 (08:26→11:09)
[2024-06-11] MEDS: LR 15ML/HR IV SCH (09:04)
[2024-06-11] MEDS: ACETAMINOPHEN 500 MG TAB PO SCH ×2 (09:05→16:01)
[2024-06-11] MEDS: LR 60ML/HR IV SCH (09:06)
[2024-06-11] MEDS ORDERED: HYDROmorphone INJ 1 MG/ML SYRINGE IV PRN (09:23)
[2024-06-11] MEDS ORDERED: ATROPINE SULFATE 0.1 MG/ML 10ML SYR IV PRN (09:23)
[2024-06-11] MEDS ORDERED: PROMETHAZINE HCL 6.25 MG in SODIUM CHLORIDE 0.9% 50 ML IV PRN (09:23)
[2024-06-11] MEDS ORDERED: ePHEDrine sulfate 50 MG/ML AMP IV PRN (09:23)
[2024-06-11] MEDS ORDERED: ONDANSETRON INJ 2 MG/ML 2 ML VIAL IV PRN ×2 (09:23→13:29)
[2024-06-11] MEDS ORDERED: ALBUT/IPRATROP 3MG/0.5MG NEB 3 ML VIAL INH PRN (09:24)
--- NOTE | 2024-06-11 10:00 | History & Physical Bridge Note ---
Date of Service June 11, 2024 History & Physical Bridge Note I have examined the patient, reviewed the History & Physical and in the interval since the performance of the History & Physical I have noted the following changes of clinical significance: no changes noted
[2024-06-11] MEDS: TRANEXAMIC ACID / 0.7% NACL 1000MG/100ML BAG IV ONE (10:30)
[2024-06-11] MEDS: ceFAZolin 2000MG 2,000 MG/15 ML SYR IV SCH ×2 (10:43→18:17)
[2024-06-11] MEDS: TRANEXAMIC ACID / 0.7% NACL 1,000 MG/100 ML BAG IV ONE ×2 (10:44→12:53)
[2024-06-11] MEDS ORDERED: ALBUTEROL HFA 8 GM INHALER INH ONE (11:06)
[2024-06-11] MEDS ORDERED: PHENYLEPHRINE 100MCG/ML 5ML SYR ONE (12:44)
[2024-06-11] MEDS ORDERED: METOCLOPRAMIDE HCL INJ 5 MG/ML 2 ML VIAL IV PRN (13:29)
[2024-06-11] MEDS ORDERED: MAGNESIUM HYDROXIDE SUSP 30 ML UDC PO PRN (13:29)
[2024-06-11] MEDS ORDERED: HYDROmorphone INJ 0.5 MG/0.5 ML SYR IV PRN (13:29)
[2024-06-11] MEDS ORDERED: bisacodyL 10 MG SUPP PR PRN (13:29)
[2024-06-11] MEDS ORDERED: NALOXONE HCL 0.4 MG/1 ML VIAL/CARP IV PRN (13:29)
[2024-06-11] MEDS ORDERED: ONDANSETRON 8MG OD TAB SL PRN (13:31)
[2024-06-11] MEDS ORDERED: FLUTICASONE PROPIONATE NA SPR 16 GM BTL PRN (13:31)
[2024-06-11] MEDS ORDERED: ALBUTEROL 0.083% NEBU SOLN 3 ML VIAL INH PRN (13:31)
[2024-06-11] MEDS ORDERED: ALBUTEROL HFA 8 GM INHALER INH PRN (13:31)
[2024-06-11] MEDS ORDERED: POLYETHYLENE (MIRALAX) 17 GM PACK PO PRN (13:31)
[2024-06-11] MEDS ORDERED: AZELASTINE HCL 0.1% NASAL 200 SPRAYS/27,400 MCG BTL PRN (13:31)
[2024-06-11] MEDS ORDERED: IBUPROFEN 800 MG TAB PO PRN (13:31)
--- NOTE | 2024-06-11 13:40 | Operative Report ---
PG Post Operative Report Pre & Post Diagnosis Operation Date: 06/11/24 10:00 Pre-Op Diagnosis: Left Shoulder Osteoarthritis of Glenohumeral Joint, biceps tendinopathy, rotator cuff tear Post-Op Diagnosis: Left Shoulder Osteoarthritis of Glenohumeral Joint, biceps tendinopathy, rotator cuff tear I identified the patient and participated in the time-out.: Yes Procedure Operation Date: 06/11/24 10:00 Actual Procedures p Left Reverse Total Shoulder Arthroplasty, Biceps Tenodesis(Left) - Cm Chávez MD Surgeon Cm Chávez MD Metal Hanging Helper Nuris Cunha PA-C Estimated Blood Loss 100 Findings See Below Arthrex Univers Reverse Shoulder Arthroplasty was performed: Stem Latrobe size 6, 33 mm +2 offset suture cup, 33+3 humeral insert, 24 mm 20 degree full standard augment baseplate, 20 mm modular post, 33+4/24 glenosphere, Univers peripheral nonlocking screw 4.5 mm x 28 and 36 mm, Univers peripheral locking screw 5.5 x 16 and 20 mm EXAMINATION UNDER ANESTHESIA: Preoperative exam under anesthesia revealed the followin degrees of forward flexion, 70 degrees external rotation at the side, 120 degrees of abduction, 30 degrees of external rotation and 10 degrees of internal rotation with the arm abducted. Postoperatively, range of motion parameters after implantation of prosthesis revealed a stable prosthesis with range of motion parameters as follows: 130 of forward flexion, 60 of external rotation at the side, 120 of abduction, 90 of external rotation with the arm abducted, 20 of internal rotation with the arm abducted. The patient's safe range of motion included the ability to get to the back of the head. Internal rotation to the belly without significant tension. Specimens humeral head to pathology by routine Anesthesia Type General Regional Complications none Disposition Accompanied Patient To Recovery: Yes Disposition: Recovery Room Indications 58-year-old female presented with progressive left shoulder pain and rotator cuff dysfunction due to osteoarthritis with loose bodies and bicipital tendinopathy, with partial-thickness rotator cuff tear. Physical exam and advanced imaging were consistent with [advanced arthrosis of the glenohumeral joint with compromise of the rotator cuff function]. Given the glenoid deformity and rotator cuff dysfunction, I did offer reverse shoulder arthroplasty to address the symptoms. We reviewed the risk, benefits, and alternatives of this intervention in detail, as outlined in several clinical notes. Informed consent was documented in clinic, as the patient desired to proceed. Description of Procedure The patient was identified in the preoperative holding area. The operative extremity was marked. Regional block was administered by Anesthesia. The patient was then brought to the operating room and placed supine. Preliminary time-out procedure was performed. All were in agreement. General endotracheal anesthesia was induced without any issues. The patient was sat up in around 40-45 degrees of inclination in the beachchair position. Exam under anesthesia was performed confirming the above findings. Preoperative antibiotics were administered. TXA was infused. Sequential compressive devices were placed on her bilateral lower extremities for DVT prophylaxis. Bony prominences were inspected, well-padded and free of any evidence for peripheral nerve compression. The entire operative upper extremity was then prepped and draped in a normal sterile fashion for shoulder surgery, with use of padded Bass to hold the arm. Prior to incision, a second time-out procedure was performed confirming the patient, site, laterality and the procedure. All were in agreement. 1. Right shoulder open reverse total shoulder replacement with Arthrex Univers Revers system: A deltopectoral incision was utilized. Incision was carried out sharply and with electrocautery through the skin and subcutaneous tissues. The deltop ectoral interval was developed. The cephalic vein was taken laterally. Subdeltoid space was developed bluntly. A deltoid brown retractor was placed to retract the deltoid laterally and superiorly. 1 cm of the superior border of the pectoralis major tendon insertion site was released in standard fashion to improve exposure. Clavipectoral fascia was removed with electrocautery. Extensive subacromial bursitis was encountered and this was completely removed with a Bovie. The lateral aspect of the conjoined tendon was then followed to its insertion site on the coracoid. The conjoined tendon was retracted medially. The biceps tendon was identified, enlarged consistent with tendinopathy. He was released space and the Bovie proximally along its tract to the superior labrum. It was freed from the biceps groove. A tenodesis was performed to the pectoralis major tendon as will be discussed in further detail below. A sharp Hohmann retractor was then placed into the interval and into the joint. Subscapularis tendon was still present and attached on the lesser tuberosity. The articular surface of the humeral head could be appreciated. The capsule with the subscapularis tendon was then released up the inferior humeral neck as one layer. The humeral head dislocated with successive extension and external rotation. Visualization of the humeral head revealed significant osteoarthritis and wear. The rotator cuff had tendinopathy and partial-thickness tearing at the infraspinatus. The top of the humeral head was identified. A starting pin was used to sound the humeral canal. The bone quality was moderate. Opening reamers were used to define the canal. The 6 mm reamer allowed alignment with the canal. The cutting guide was then placed on the reamer handle in the usual fashion. Humeral head appeared to be in 35-40 degrees of retroversion. The cutting guide was fixed with a breakaway pins. Sagittal saw was then used to create the humeral head cut. Blunt Hohmann was used posteriorly to ensure safety with a saw. Humeral head covering cap was then placed. We then proceeded over to glenoid. An anterior glenoid neck retractor was placed. The MGHL and SGHL were released off of the muscular portion of the subscapularis being mindful of palpating and identifying the axillary nerve to make sure it was free of injury during releases. Next, the interval between the IGHL and the muscular portions of the subscapularis was identified. My finger was on the axillary nerve to protect it during releases. The IGHL was then released up to around the 7 o'clock position. A blunt retractor was then placed to retract the humerus posteriorly. A sharp Hohmann retractor was placed at the 12 o'clock position. The glenoid deformity was evaluated. Extraneous capsulolabral tissue was dissected to reveal the bone anatomy. This confirmed our decision to proceed with preoperative virtual planning. The arm was placed around 30 degrees of flexion, 90 degrees of external rotation and 30 degrees of abduction to distract the humerus posteriorly. Labrum was circumferentially removed including the biceps tendon stump with a Bovie. Arthrex virtual implant positioning guide set to the preplanned parameters was used to place an initial guide pin. The augment template was then placed. It seemed that we are in the appropriate position with our central pin and the augment would fit well. The short starting reamer was used over the pin to control depth. The full augment oblique reamer was then used over the pin after drilling the starting position. The depth was judged based on the preoperative plan. Once cartilage was debrided from the subchondral bone, the preparation was evaluated. We then reamed to the depth matching the preoperative plan. The central post drill was then used over the pin. There was no breach of the vault. Copious irrigation was performed to irrigate out the joint. The augment template was then dropped over the pin. There was good fill and fit and implant match. The planned glenoid baseplate and central post were then placed. The implant was firmly tamped down with good capture of the central post. We then drilled, measured, and placed 4 screws in the available baseplate positions. The superior and inferior screws were compression, 4.5 mm nonlocking screws. These were preplanned on the VIP system. The final construct appeared to be extremely strong as the entire glenoid and scapula moved together as one unit confirming excellent fixation of the baseplate. The peripheral racing secretary and handicapper was then used to clear out soft tissue and osteophytes that would impinge on the backside of the glenosphere. Next, the planned glenosphere was confirmed and opened on the back table. The glenosphere was then seated into the baseplate and impacted onto the andrade taper. A beth was used to test fixation, before resetting with additional malleting. The central fixation screw was then placed. The joint was then copiously irrigated. Humerus was then brought back into view with external rotation, deltoid brown retractor and multiple blunt Homans. Initial broach was size 6. This obtained good fit and fill and capture on the initial trial. The trial stem was left in place. The cup reamer was used over the offset post to match the anatomy. This area was irrigated. The final stem and suture cup prosthesis was then brought onto the field. It was positioned according to the rotation determined and impacted for a firm fix. A trial liner was then placed that would best accommodate the anatomy. The humerus was then reduced onto the glenoid with the arm in abduction and external rotation. The arm was taken out of the sterling, taken through a physiologic range of motion. No evidence for impingement. No evidence for kick off. No shuck. Thus, the trial would be appropriate for stability. Humerus was then dislocated once again. The final poly was then placed after washing out the suture cup. With the final components in place, humeral component was then reduced onto the glenosphere and final postoperative range of motion assessment was performed. Stability confirmed. This completed the open reverse total shoulder replacement. 2. Open biceps tenodesis: As dictated above, enlargement of the biceps tendon was noted consistent with tendinopathy. The tenodesis was necessary to keep appropriate tension relationship with the long head bicep. The tendon was released from the bicipital sheath using a Bovie and then tenodesed to the pectoralis major tendon using a #2 FiberWire suture in [id number] fashion. The tendon was then followed up as proximal as could be visualized and then tenotomized. Remaining stump was removed just proximal to the tenodesis site. This completed the open biceps tenodesis. The routine closing sequence was begun. Thorough pulse lavage irrigation was performed. Next, a 2-minute iodine solution soak was performed. The arm is held at 90 degrees of abduction and neutral rotation to allow the solution to lay in the wound. Gentle lavage using iodine solution was performed for 2 minutes. Pulse positive then used to thoroughly irrigate out the iodine solution. A total of 3 L normal saline was used. The wound was copiously irrigated. The deltopectoral incision was closed with #1 Vicryl suture. Subcutaneous tissues were closed with 0 and 2-0 Vicryl suture in a buried, interrupted fashion. Skin was closed with mohit. The wound was dressed with xeroform, gauze, and ABDs, contained by Ioban. The patient was placed in a standard sling and turned over to the anesthesia team. The patient tolerated procedure well, was extubated in the operating room without complication, and transferred to the PACU in stable condition. DISPOSITION: The patient will remain in sling for a total of 4 weeks. There is admitted for observation based on preanesthetic testing recommendations. Routine postoperative oral antibiotic prophylaxis will be prescribed at discharge. Hand, wrist, and elbow range of motion exercises may be initiated. Formal therapy will be initiated starting with gentle active assisted range of motion. No strengthening will be permitted before 12 weeks. Physician store assistant attestation: Nuris Cunha PA-C was present and scrubbed for the duration of the case. Skilled assistance was essential to prepping/draping, patient positioning, retraction, and wound closure. I attest to the content of the Intraoperative Record and any orders documented therein. Any exceptions are noted below.
--- NOTE | 2024-06-11 13:42 | XRay Report ---
XR shoulder LT min 2V routine CLINICAL HISTORY: Post shoulder surgery COMPARISON: 08/05/2023 FINDINGS: Left shoulder prosthesis shows no hardware complication. There is expected soft tissue gas . Skin mohit are present. IMPRESSION: Unremarkable postoperative exam. ACT 112: Negative or not required by law. Electronically signed by: Brian Raymond M.D. 06/11/2024 1:41 PM
[2024-06-11] MEDS ORDERED: FLUTICASONE/VILANTEROL 200/25MCG 14 PUFFS/INHALER INH PRN (13:46)
[2024-06-11] MEDS: fentaNYL citrate PF 100 MCG/2 ML VIAL IV PRN (13:47)
--- NOTE | 2024-06-11 14:01 | Anesthesiology Progress Note ---
Date of Service June 11, 2024 Anesthesia Post Procedure Vital Signs Vital Signs: Temp Pulse Resp BP Pulse Ox O2 Del Method O2 Flow Rate 06/11/24 13:50 77 14 127/78 97 Oxymask 2 06/11/24 13:40 80 21 126/83 100 Oxymask 7 06/11/24 13:31 36.1 C L 86 20 118/60 98 Oxymask 7 06/11/24 08:47 36.8 C 79 16 135/87 96 Room Air Pain Intensity Left Arm: Pain Intensity: 4 Left Axilla: Pain Intensity: 5 Transfer of Care Handoff Completed per policy Notes Mental Status: alert / awake / arousable and participated in evaluation Patient Amnestic to Procedure: Yes Nausea / Vomiting: adequately controlled Pain: adequately controlled Airway Patency, RR, SpO2: stable & adequate BP & HR: stable & adequate Hydration State: stable & adequate Anesthetic Complications: no major complications apparent and Pt Satisfied with anesthetic care
[2024-06-11] MEDS: BUPIVACAINE LIPOSOME 1.3% 133 MG/10 ML VIAL ONE (16:02)
[2024-06-11] MEDS: oxyCODONE HCL IR 5 MG TAB (IMMEDIATE RELEASE) PO PRN (16:09)
[2024-06-11] MEDS ORDERED: FLUTICASONE FUROATE 100MCG 14 PUFFS/INHALER INH PRN (16:22)
[2024-06-11] MEDS: DOCUSATE SODIUM 100 MG CAP PO SCH (20:42)
[2024-06-11] MEDS: SENNA 8.6 MG TAB PO SCH (20:42)
[2024-06-11] MEDS: CETIRIZINE HCL 10 MG TABLET PO SCH (20:44)
[2024-06-11] MEDS: GABAPENTIN 300 MG CAP PO SCH (20:45)
[2024-06-11] MEDS ORDERED: DOCUSATE SODIUM 100 MG CAP PO SCH (21:00)
[2024-06-11] MEDS: traZODone HCL 50 MG TAB PO PRN (22:41)
[2024-06-12] MEDS: LEVOTHYROXINE SODIUM 112 MCG TABLET PO SCH (05:56)
--- NOTE | 2024-06-12 08:18 | Orthopedic Progress Note ---
Date of Service June 12, 2024 Assessment & Plan (1) Status post reverse total arthroplasty of left shoulder: (2) Osteoarthritis of glenohumeral joint: (3) Biceps tendinitis of left shoulder: Plan POD 1 status post left reverse shoulder arthroplasty. Making uncomplicated progress. Dressing was reinforced, because it was peeled back from her armpit somewhat for discomfort. - PT and OT this morning for discharge preparation - Reviewed appropriate use of arm in sling. - Discussed outpatient PT -likely [facility] in [facility] [place] - Discharge home if meets criteria otherwise today Subjective Reports tolerable pain and a functional block. Some shortness of breath overnight requiring oxygen, which has resolved. Think she was ready to go today. Review of Systems All systems reviewed & are unremarkable except as noted in HPI & below. Physical Exam . Constitutional WD/WN, vitals as above no acute distress and not intoxicated appearing Respiratory normal respiratory effort; no labored breathing Cardiovascular Extremities: normal capillary refill Results & Data Results & Data Laboratory Results . Diagnostic Findings . PG Care Time/CCT Total # of Minutes Spent Total Time Spent with Patient: Total time spent is greater than 50% in coordination of care (as documented) at patient's floor/unit and/or counseling patient: Coding Level of Care Code 17724 Post Operative Follow-Up Diagnoses Status post reverse total arthroplasty of left shoulder Z96.612 Osteoarthritis of glenohumeral joint M19.019 Biceps tendinitis of left shoulder M75.22
[2024-06-12] MEDS: CYANOCOBALAMIN (B-12) 2,500 MCG TABLET SL SCH (08:25)
[2024-06-12] MEDS: EZETIMIBE 10 MG TAB PO SCH (08:25)
[2024-06-12] MEDS: ASCORBIC ACID 500 MG TAB PO SCH (08:25)
[2024-06-12] MEDS: DULoxetine HCL 60 MG CAP PO SCH (08:25)
[2024-06-12] MEDS: DULoxetine HCL 30 MG CAP PO SCH (08:25)
[2024-06-12] MEDS: MONTELUKAST SODIUM 10 MG TABLET PO SCH (08:26)
[2024-06-12] MEDS: VIBEGRON 75 MG TAB PO SCH (08:26)
[2024-06-12] MEDS: PANTOprazole 40 MG TAB PO SCH (08:26)
[2024-06-12] MEDS: GABAPENTIN 100 MG CAP PO SCH (08:26)
[2024-06-12] MEDS: VENLAFAXINE HCL XR 150 MG CAPXR PO SCH (08:26)
[2024-06-12] MEDS: MULTIVITAMIN TAB PO SCH (08:26)
[2024-06-12 10:43] VITALS: BP 100/67; PULSE 89; RESP 20; TEMP 98.1; O2SAT 95
--- NOTE | 2024-06-16 07:56 | Discharge Summary ---
Date of Service June 12, 2024 Admission HPI (Per Admitting) 58-year-old female presented with progressive left shoulder pain and rotator cuff dysfunction due to osteoarthritis with loose bodies and bicipital tendinopathy, with partial-thickness rotator cuff tear. Physical exam and advanced imaging were consistent with [advanced arthrosis of the glenohumeral joint with compromise of the rotator cuff function]. Given the glenoid deformity and rotator cuff dysfunction, I did offer reverse shoulder arthropl asty to address the symptoms. We reviewed the risk, benefits, and alternatives of this intervention in detail, as outlined in several clinical notes. Informed consent was documented in clinic, as the patient desired to proceed. Admission Exam (Per Admitting) Constitutional WD/WN, vitals as above Musculoskeletal OBJECTIVE: General: Alert and oriented. No acute distress. She can forward flex to about 80 degrees. When she has some assistance she can get to about 120 but this is limited by pain. She has external rotation to about 25 degrees. She can abduct to 70 degrees. She does have 4-5 strength in all rotator cuff testing planes. Neurovascularly intact in the left upper extremity. Principal Diagnosis Same as "Discharge Diagnosis" noted below under Discharge Instructions. Discharge Exam . Constitutional WD/WN, vitals as above Musculoskeletal dressing dry and intact. NV intact surgical extremity. Discharge Data Procedures Performed Operation Date: 06/11/24 10:00 Actual Procedures p Left Reverse Total Shoulder Arthroplasty, Biceps Tenodesis(Left) - Cm Chávez MD Ordered Studies 06/11/24 05:00 US - OR guided needle placemen Routine Hospital Course (1) Status post reverse total arthroplasty of left shoulder: POD 1 status post left reverse shoulder arthroplasty. Making uncomplicated progress. Dressing was reinforced, because it was peeled back from her armpit somewhat for discomfort. - PT and OT this morning for discharge preparation - Reviewed appropriate use of arm in sling. - Discussed outpatient PT -likely [facility] in [place] - Discharge home if meets criteria otherwise today PG Care Time/CCT Total # of Minutes Spent Total Time Spent with Patient: Total time spent is greater than 50% in coordination of care (as documented) at patient's floor/unit and/or counseling patient: Discharge Plan Discharge Items Patient Disposition: Home - Self-Care Reason For Visit: Osteoarthritis of Glenohumeral Joint, Biceps Tendi Discharge Diagnosis: s/p left reverse total shoulder arthroplasty Activity: Per Instructions section Lifting: No more than 5 pounds Non-emergency contact: Surgeon Call non-emergency contact if: your pain is not controlled, you have a fever and your temperature is above 101.5 Follow-up/Referrals: Cecilia Hurst MD [Primary Care Provider] - Cm Chávez MD [Surgeon] - Diet: Regular Addtl Attending Provider Instructions: Cm Chávez M.D. [facility] [address] [place] [address] Dressing Care: Leave the dressing in place for 3 days. After 3 days you may remove the dressing. If the incision is not draining, you do not have to re-cover the dressing. Vero will be removed at your postop appointment. If there is a little bit of drainage or if the wound is bothersome with your clothing, cover the incision with a dry dressing. Do not use any ointments or topical medications unless directed by your surgeon. Do not submerse the incisions in water no pools, oceans, lakes, jacuzzis, bathtubs, etc for at least 3 weeks. Showering: After 3 days you may remove the dressing and shower normally. Allow soap and water to run over the incision and pat dry. Do not scrub or soak the incision. Activity and Therapy Recommendations: - If you are not using home therapy then Outpatient Physical Therapy should start about 3-5 days from your day of surgery. Therapy will last about 8-12 weeks - Wear your sling for 3 weeks, unless otherwise instructed. You may remove your sling to shower and to dress, but otherwise, you should be in your sling at all times, including while sleeping - The shoulder replacement is very stable and you can use your hand while in the sling - You were shown a series of exercises in the hospital. Do these exercises daily including the exercises you were shown in physical therapy. - NO EXTERNAL ROTATION - do not reach out to your side. Pain Control: Use frequent ice to reduce amount of pain medications. Use for 30 minutes per hour. Do not leave in place longer than 30 minutes, especially when your block is in effect, to prevent frostbite or thermal injury. Medications: - Opioid: You will likely be sent home with a prescription for the opioid pain medication. Use as directed, as needed. - Other medications may be prescribed for specific circumstances. If you have any questions, please call the office at . - Resume previous home medications unless otherwise instructed Follow-Up: 1. Ortho Clinic with Dr. Chávez: You should be seen in 10-14 days. Please call immediately to schedule if you do not have an appointment. Pending Studies at Discharge: No Stand-Alone Forms: My [facility], Smoking Cessation Medications and DC Order Prescriptions: New cefadroxil 500 mg capsule 500 mg PO BID 10 Days Qty: 20 0RF ondansetron 4 mg tablet,disintegrating 4 mg PO Q6H PRN (Reason: nausea and vomiting) Qty: 10 0RF Continued ascorbic acid (vitamin C) 1,000 mg tablet 1 g PO QAM ondansetron 8 mg tablet,disintegrating 8 mg translingual TID PRN (Reason: Nausea) Qty: 30 1RF albuterol sulfate 2.5 mg /3 mL (0.083 %) solution for nebulization 2.5 mg INHALATION DIRECTED PRN (Reason: Shortness Of Breath Or Wheezing) Qty: 75 1RF montelukast 10 mg tablet 10 mg PO QAM Qty: 90 1RF levocetirizine [Xyzal] 5 mg tablet 5 mg PO QPM Qty: 90 1RF albuterol sulfate 90 mcg/actuation HFA aerosol inhaler 2 puff INHALATION 6XD PRN (Reason: Shortness Of Breath Or Wheezing) Qty: 6.7 0RF ibuprofen 800 mg tablet 800 mg PO Q8H PRN (Reason: pain) Qty: 30 8RF gabapentin 100 mg capsule 100 mg PO BID Qty: 180 0RF Rx Instructions: one in AM, one at noon. trazodone 50 mg tablet See Rx Instructions PO .COMPLEX PRN (Reason: insomnia) Qty: 90 5RF Rx Instructions: 1 to 2 tabs orally at bedtime; PRN; gabapentin 300 mg capsule 900 mg PO HS Qty: 180 1RF venlafaxine 150 mg capsule,extended release 24hr 150 mg PO DAILY Qty: 90 1RF lidocaine [AsperFlex (lidocaine)] 4 % adhesive patch,medicated 1 patch topical DAILY PRN (Reason: pain) Qty: 30 1RF acetaminophen 650 mg Tablet Extended Release 1,300 mg PO TID PRN (Reason: Pain) azelastine 137 mcg (0.1 %) aerosol,spray 2 spray INTRANASAL QAM PRN (Reason: sinus congestion) fluticasone propionate [Flonase Allergy Relief] 50 mcg/actuation [place],Suspension 2 spray INTRANASAL DAILY PRN (Reason: sinus congestion) Rx Instructions: administer into each nostril cyanocobalamin (vitamin B-12) [Vitamin B-12] 2,500 mcg Tablet, Sublingual 2,500 mcg SUBLINGUAL QAM fluticasone propion-salmeterol [Advair Diskus] 250-50 mcg/dose blister with device 1 inh INHALATION BID PRN (Reason: sob) fosfomycin tromethamine 3 gram packet 1 packet PO .COMPLEX PRN (Reason: UTI) Rx Instructions: Take one packet once weekly. omeprazole 40 mg capsule,delayed release(DR/EC) 40 mg PO QAM levothyroxine 112 mcg tablet 112 mcg PO QAM ezetimibe [Zetia] 10 mg tablet 10 mg PO QAM duloxetine 30 mg capsule,delayed release(DR/EC) 30 mg PO QAM duloxetine 60 mg capsule,delayed release(DR/EC) 60 mg PO QAM Asmanex HFA 100 mcg/actuation HFA aerosol inhaler 1 puff inhalation BID PRN (Reason: sob) Gemtesa 75 mg tablet 75 mg PO QAM docusate sodium [Stool Softener] 100 mg Capsule 100 mg PO HS polyethylene glycol 3350 [Miralax] 17 gram/dose Powder 17 g PO DAILY PRN (Reason: Constipation) No Action oxycodone 5 mg tablet 5 - 10 mg PO Q6H MDD 6 tablets PRN (Reason: post operative pain) Qty: 18 0RF Discharge Orders: Discharge Order (Routine); Ordered 06/12/24 Ordered By: Cm Chávez Admission Data Admit Date/Time: 06/11/24 13:29 Attending Provider: Cm Chávez Admit Provider: Cm Chávez Primary Care Provider: Cecilia Hurst Other Interventions: Discharge Summary Assessment (RN) Last Done: 06/12/24 12:17
== END 2024-06-12 12:31 | disposition home or self-care (01) ==
LOC: ASU 07:55 → 3N 07:55